=== PATIENT | female | born 1945 | race Caucasian/White ===

== ENCOUNTER 2016-08-07 11:07 | Inpatient (IN) | payer OTHER ==
[2016-08-07 11:23] VITALS: BMI 35.2
[2016-08-07] MEDS ORDERED: morphine CARPU-JECT 2 MG/1 ML DISP.SYRIN IVPUSH ONE ×2 (12:04→14:47)
[2016-08-07] MEDS ORDERED: morphine CARPU-JECT 4 MG/1 ML DISP.SYRIN ONE (12:06)
[2016-08-07 12:32] LABS: BASOPHIL 0.5 % (0-2.0); EOSINOPHIL 2.6 % (0-4.5); MCH 29.8 pg (25.7-33.7); MCHC 33.6 g/dl (32.0-36.0); MEAN CELL VOLUME 88.7 fl (80-96); NEUTROPHILS 73.5 % (42.8-82.8); PLATELET COUNT 350 K/MM3 (134-434); RDW 12.3 % (11.6-15.6); WHITE BLOOD COUNT 9.8 K/mm3 (4.0-10.0)
[2016-08-07 12:34] LABS: URINE APPEARANCE TURBID; URINE BILIRUBIN NEGATIVE (NEGATIVE); URINE COLOR AMBER; URINE GLUCOSE (UA) NEGATIVE (NEGATIVE); URINE KETONE NEGATIVE (NEGATIVE); URINE NITRITE NEGATIVE (NEGATIVE); URINE UROBILINOGEN NEGATIVE E.U./dl (0.2-1.0)
[2016-08-07 12:38] LABS: URINE BLOOD 2+ (NEGATIVE); URINE LEUK ESTERASE 3+ (NEGATIVE); URINE PROTEIN 2+ (NEGATIVE)
[2016-08-07 12:40] LABS: URINE BACTERIA MANY /hpf (NONE SEEN); URINE RBC 119 /hpf (0-3); URINE WBC 1878 /hpf (3-5)
[2016-08-07 13:20] LABS: ALBUMIN 3.5 g/dl (3.4-5.0); ALK PHOS 147 U/L (45-117); AMYLASE 58 U/L (25-115); ANION GAP 9 (8-16); BILIRUBIN,TOTAL 0.6 mg/dL (0.2-1.0); CALCIUM 10.7 mg/dL (8.5-10.1); CO2 27 mmol/L (21-32); CREATININE 0.9 mg/dL (0.55-1.02); GLUCOSE,RANDOM 82 mg/dL (74-106); SGPT/ALT 25 U/L (12-78)
[2016-08-07 13:24] LABS: SGOT/AST 27 U/L (15-37)
--- NOTE | 2016-08-07 13:44 | PDOC ---
History of Present Illness - General Chief Complaint: Pain Stated Complaint: ABD PAIN Time Seen by Provider: 08/07/16 11:39 History Source: Patient, Other (daughter) Exam Limitations: No Limitations - History of Present Illness Initial Comments: 08/07/16 13:24 70-year-old female presents to the emergency room for evaluation of right flank pain associated with dysuria for the past few weeks. Patient states pain has worsened in severity despite being on 2 different antibiotics for UTI. Patient is due for an abdominal CT today but due to the pain she was brought to the ER for further evaluation. Patient denies fever, chills, nausea, abdominal distention, diarrhea, hematuria, or chest pain. Patient states history of cholecystectomy and CVA. Past History - Past Medical History Allergies/Adverse Reactions: Allergies Allergy/AdvReac Type Severity Reaction Status Date / Time aspirin Allergy Verified 08/07/16 14:48 Home Medications: Ambulatory Orders Atorvastatin Ca [Lipitor] 40 mg PO HS 08/07/16 Ciprofloxacin [Cipro (Restricted To Id)] 500 mg PO BID 08/07/16 Citalopram Hydrobromide [Celexa -] 10 mg PO DAILY 08/07/16 Clopidogrel Bisulfate [Plavix -] 75 mg PO DAILY 08/07/16 Famotidine [Pepcid] 40 mg PO TID 08/07/16 Fesoterodine Fumarate [Toviaz] 8 mg PO DAILY 08/07/16 Gabapentin 400 mg PO TID 08/07/16 Glyburide Micronized [Glynase -] 6 mg PO BID 08/07/16 Insulin Glargine,Hum.rec.anlog [Lantus Solostar PEN (NF)] 30 units SQ HS Insulin Lispro [Humalog] 12 unit SQ TID 08/07/16 Irbesartan 150 mg PO DAILY 08/07/16 Irbesartan [Avapro] 150 mg PO DAILY 08/07/16 Montelukast Na [Singulair -] 10 mg PO HS 08/07/16 Pantoprazole Sodium [Protonix -] 20 mg PO DAILY 08/07/16 CVA: Yes (LEft residual weakness) Diabetes: Yes HTN: Yes Hypercholesterolemia: Yes Other medical history: pacemaker - Surgical History Cholecystectomy: Yes - Psycho/Social/Smoking Cessation Hx Suicidal Ideation: No Smoking History: Never smoked Information on smoking cessation initiated: No Hx Alcohol Use: No Drug/Substance Use Hx: No Patient Lives Alone: No Lives with/in: daughter Review of Systems - Review of Systems Able to Perform ROS?: Yes Constitutional: No: Symptoms Reported HEENTM: No: Symptoms Reported Respiratory: No: Symptoms reported Cardiac (ROS): No: Symptoms Reported ABD/GI: Yes: Abdominal cramping. No: Nausea, Poor Appetite, Poor Fluid Intake, Vomiting : Yes: Dysuria, Frequency, Flank Pain Musculoskeletal: No: Symptoms Reported Integumentary: No: Symptoms Reported Neurological: No: Symptoms reported Endocrine: No: Symptoms Reported Hematologic/Lymphatic: No: Symptoms Reported *Physical Exam - Vital Signs Last Vital Signs Temp Pulse Resp BP Pulse Ox 98 F 73 18 157/72 99 08/07/16 11:10 08/07/16 11:10 08/07/16 11:10 08/07/16 11:10 08/07/16 11:10 - Physical Exam General Appearance: Yes: Nourished, Appropriately Dressed. No: Apparent Distress HEENT: positive: EOMI, ABBY. negative: Pale Conjunctivae Neck: positive: Supple Respiratory/Chest: positive: Lungs Clear, Normal Breath Sounds. negative: Respiratory Distress, Accessory Muscle Use Cardiovascular: positive: Regular Rhythm, Regular Rate. negative: Murmur Gastrointestinal/Abdominal: positive: Soft, Tenderness (Flank right , right periumbilal) Musculoskeletal: positive: CVA Tenderness (R) Extremity: positive: Normal Capillary Refill. negative: Pedal Edema Integumentary: positive: Normal Color, Warm, Moist Neurologic: positive: Normal Mood/Affect Heart Score/ECG Review - ECG Intrepretation Rhythm: Regular Rhythm (rate 68 with right bundle branch block.) ED Treatment Course - LABORATORY CBC & Chemistry Diagram: 08/07/16 12:19 08/07/16 12:19 - ADDITIONAL ORDERS Additional order review: Laboratory Results 08/07/16 08/07/16 12:30 12:19 Lactic Acid 1.493 Urine Color Anali Urine Appearance Turbid Urine pH 6.0 Ur Specific Elizabeth 1.010 Urine Protein 2+ H Urine Glucose (UA) Negative Urine Ketones Negative Urine Blood 2+ H Urine Nitrite Negative Urine Bilirubin Negative Urine Urobilinogen Negative Ur Leukocyte Esterase 3+ H Urine RBC 119 Urine WBC 1878 Urine Bacteria Many 08/07/16 12:19 RBC 4.22 MCV 88.7 MCHC 33.6 RDW 12.3 MPV 8.0 Neutrophils % 73.5 Lymphocytes % 16.2 Monocytes % 7.2 Eosinophils % 2.6 Basophils % 0.5 - RADIOLOGY Radiology Studies Ordered: Category Date Time Status SPIRAL- RENAL-STONE CT [CT] Stat CT Scan 08/07/16 13:22 Ordered CHEST X-RAY PORTABLE* [RAD] Stat Radiology 08/07/16 11:45 Completed - Medications Given in the ED: ED Medications Discontinued Medications Generic Name Dose Route Start Last Admin Trade Name Landonq PRN Reason Stop Dose Admin Morphine Sulfate 4 mg 08/07/16 12:04 08/07/16 12:22 Morphine Injection - IVPUSH 08/07/16 12:05 4 mg ONCE ONE Administration Medical Decision Making - Medical Decision Making 08/07/16 13:42 Patient with history of frequent UTI currently on Cipro after failing Macrobid complaining of right flank pain and urinary complaints. Patient with history of CVA diabetes, and hypertension. Patient is followed by Dr. Wick for primary care. patient ordered for labs, urine,analgesics, and will coner imaging once labs are resulted. 08/07/16 14:48 Laboratory Tests 08/07/16 08/07/16 08/07/16 12:19 12:19 12:19 WBC 9.8 Hgb 12.6 Hct 37.4 Plt Count 350 Neutrophils % 73.5 Sodium 139 Potassium 5.0 Chloride 103 Anion Gap 9 BUN 22 H Creatinine 0.9 Random Glucose 82 Lactic Acid Calcium 10.7 H Total Bilirubin 0.6 AST 27 ALT 25 Alkaline Phosphatase 147 H Total Amylase 58 Lipase 108 Urine Protein 2+ H Urine Blood 2+ H Urine Nitrite Negative Ur Leukocyte Esterase 3+ H Urine RBC 119 Urine WBC 1878 08/07/16 12:30 WBC Hgb Hct Plt Count Neutrophils % Sodium Potassium Chloride Anion Gap BUN Creatinine Random Glucose Lactic Acid 1.493 Calcium Total Bilirubin AST ALT Alkaline Phosphatase Total Amylase Lipase Urine Protein Urine Blood Urine Nitrite Ur Leukocyte Esterase Urine RBC Urine WBC CT shows unremarkable liver, spleen, pancreas and adrenal glands. There is no evidence of retroperitoneal lymphadenopathy or abdominal aortic aneurysm. There is a 1.6 x 0.8 cm obstructing calculus proximal in the right renal pelvis. Small nonobstructing calculi bilaterally. There is also small right renal cyst. Patient will be admitted to Dr. Wick. Patient given another dose of IV morphine. Case discussed with Dr. Alvarez and will [facility] to [facility]. He is recommending Dr. Jaycob Sosa for consultation for urology. 08/07/16 15:37 Her daughter at bedside and states patient is followed by Dr. Decker. Consult placed and call placed to Dr. Yoselin Decker 08/07/16 16:[address] Yoselin Decker and states will consult tomorrow. *DC/Admit/Observation/Transfer Diagnosis at time of Disposition: Renal calculus, right, Intractable abdominal pain, Urinary tract obstruction due to kidney stone - Discharge Dispostion Admit: Yes - Referrals
[2016-08-07] MEDS ORDERED: CEFTRIAXONE 1 GM in DEXTROSE 5%-WATER - 50 ML IVPB ONE (14:39)
--- NOTE | 2016-08-07 17:24 | EKG ---
Test Reason : Blood Pressure : / mmHG Vent. Rate : 068 BPM Atrial Rate : 068 BPM P-R Int : 182 ms QRS Dur : 122 ms QT Int : 426 ms P-R-T Axes : 074 -23 -10 degrees QTc Int : 452 ms NORMAL SINUS RHYTHM RIGHT BUNDLE BRANCH BLOCK ABNORMAL ECG NO PREVIOUS ECGS AVAILABLE Confirmed by LUANNE GARCIA MD ([id number]) on 08/07/2016 5:24:08 PM Referred By: Confirmed By:LUANNE GARCIA MD
[2016-08-07] MEDS: INSULIN SLIDING SCALE (NOVOLOG) 1 VIAL SQ SCH ×2 (18:07→22:01)
[2016-08-07] MEDS: SODIUM CHLORIDE 0.45% 1,000 ML IV SCH (20:34)
[2016-08-07] MEDS ORDERED: INSULIN (NOVOLOG) ASPART 100 UNITS/ML 10ML VIAL ONE (21:54)
[2016-08-07] MEDS: ATORVASTATIN CA 40 MG TABLET (FP) PO SCH (21:59)
[2016-08-07] MEDS: morphine CARPU-JECT 2 MG/1 ML DISP.SYRIN IVPUSH PRN (21:59)
[2016-08-07] MEDS: GABAPENTIN 400 MG CAPSULE (FP) PO SCH (21:59)
[2016-08-07] MEDS: MONTELUKAST NA 10 MG TABLET PO SCH (21:59)
[2016-08-08] MEDS ORDERED: INSULIN (NOVOLOG) ASPART 100 UNITS/ML 10ML VIAL ONE ×3 (06:19→21:13)
[2016-08-08] MEDS: INSULIN SLIDING SCALE (NOVOLOG) 1 VIAL SQ SCH ×4 (06:20→21:16)
[2016-08-08] MEDS: GABAPENTIN 400 MG CAPSULE (FP) PO SCH ×3 (06:20→21:16)
[2016-08-08 08:25] LABS: BASOPHIL 0.9 % (0-2.0); EOSINOPHIL 2.8 % (0-4.5); MCHC 33.8 g/dl (32.0-36.0); MEAN CELL VOLUME 88.6 fl (80-96); NEUTROPHILS 60.4 % (42.8-82.8); PLATELET COUNT 301 K/MM3 (134-434); RDW 12.1 % (11.6-15.6); WHITE BLOOD COUNT 8.7 K/mm3 (4.0-10.0)
[2016-08-08 08:40] LABS: ALBUMIN 2.9 g/dl (3.4-5.0); BILIRUBIN,TOTAL 0.5 mg/dL (0.2-1.0); CALCIUM 9.7 mg/dL (8.5-10.1); CREATININE 1.2 mg/dL (0.55-1.02); TOT PROT 6.5 g/dl (6.4-8.2)
[2016-08-08] MEDS ORDERED: PT OWN MED DRAWER 7, Y5N ONE (09:20)
[2016-08-08] MEDS: LOSARTAN POTASSIUM 50 MG TABLET (FP) PO SCH (09:29)
[2016-08-08] MEDS: POLYETHYLENE GLYCOL 3350 119 GM BTL PO SCH (09:30)
[2016-08-08] MEDS: CITALOPRAM HYDROBROMIDE 10 MG TABLET (FP) PO SCH (09:30)
[2016-08-08] MEDS: SODIUM CHLORIDE 0.45% 1,000 ML IV SCH ×2 (09:31→19:30)
--- NOTE | 2016-08-08 09:37 | CON.CARD ---
Consult Consult Specialty:: Cardiology Referred by:: Dr. Caballero Reason for Consultation:: Pre-op cardiac evaluation - History of Present Illness Chief Complaint: Flank pain, renal stone History of Present Illness: 70 yo female with prior h/o CVA 2014, pacemaker ([employer] per patient's report, which was implanted for "slow HR in 20s"), who was admitted with right flank pain/dysuria x several weeks and persisted despite reportedly being treated with several different antibiotics for UTI. Abd CT on 08/07/16 demonstrated 1.6 cm obstructing stone in right renal pelvis. Cardiology was consulted for pre-op cardiac evaluation for possible urologic procedure/surgery. Patient denies exertional chest pain or dyspnea with stairs. Denies edema, palpitations, orthopnea, or syncope. She states that she saw a male science manager in Dr. Wick 's office last year, but she cannot recall his name. - History Source History Provided By: Patient Limitations to Obtaining History: Language Barrier (Bulgarian speaker only) - Past Medical History WEL[employer] ME[employer]IC: Yes: CVA (2014) Cardio/Vascular: Yes: Other ([employer] pacemaker for "slow HR" in [place], last interrogated in May in [place]) - Past Surgical History Past Surgical History: Yes: Cholecystectomy, Permanent Pacemaker ([employer] per patient) - Alcohol/Substance Use Hx Alcohol Use: No - Smoking History Smoking history: Never smoked Have you smoked in the past 12 months: No Home Medications - Allergies Allergies/Adverse Reactions: Allergies Allergy/AdvReac Type Severity Reaction Status Date / Time aspirin Allergy Verified 08/07/16 14:48 - Home Medications Home Medications: Ambulatory Orders Albuterol Sulfate [Proair Respiclick] 90 mcg IH TID PRN 08/07/16 Atorvastatin Ca [Lipitor] 40 mg PO HS 08/07/16 Ciprofloxacin [Cipro (Restricted To Id)] 500 mg PO BID 08/07/16 Citalopram Hydrobromide [Celexa -] 10 mg PO DAILY 08/07/16 Clopidogrel Bisulfate [Plavix -] 75 mg PO DAILY 08/07/16 Famotidine [Pepcid] 40 mg PO BID 08/07/16 Fesoterodine Fumarate [Toviaz] 8 mg PO DAILY 08/07/16 Gabapentin 400 mg PO TID 08/07/16 Glyburide Micronized [Glynase -] 6 mg PO BID 08/07/16 Insulin Glargine,Hum.rec.anlog [Lantus Solostar PEN (NF)] 30 units SQ HS Insulin Lispro [Humalog] 12 unit SQ TID 08/07/16 Irbesartan 150 mg PO DAILY 08/07/16 Irbesartan [Avapro] 150 mg PO DAILY 08/07/16 Montelukast Na [Singulair -] 10 mg PO HS 08/07/16 Family Disease History - Family Disease History Family History: Denies (premature CAD) Review of Systems - Review of Systems Constitutional: reports: No Symptoms Eyes: reports: No Symptoms HENT: reports: No Symptoms Neck: reports: No Symptoms Cardiovascular: denies: Chest Pain, Edema, Palpitations, Shortness of Breath Vital Signs: Vital Signs Temperature 98.4 F 08/08/16 06:00 Pulse Rate 66 08/08/16 06:00 Respiratory Rate 18 08/08/16 06:00 Blood Pressure 108/68 08/08/16 06:00 O2 Sat by Pulse Oximetry (%) 98 08/07/16 21:00 - Other Data Labs, Other Data: CBC, BMP 08/08/16 06:20 08/08/16 06:20 Imaging - Results Chest X-ray: Report Reviewed (08/07/16 CXR: No effusions, infiltrates. Pacemaker.) Assessment/Plan 70 yo female with prior h/o CVA 2014, pacemaker ([employer] per patient's report, which was implanted for "slow HR in 20s"), who was admitted with right flank pain/dysuria x several weeks and persisted despite reportedly being treated with several different antibiotics for UTI. Abd CT on 08/07/16 demonstrated 1.6 cm obstructing stone in right renal pelvis. Cardiology was consulted for pre-op cardiac evaluation for possible urologic procedure/surgery. RECS: Patient does not have any cardiac contraindications to urologic procedure/ surgery (if clinically indicated) and may proceed with acceptable cardiac risk given absence of symptoms to suggest cardiac disease and exercise capacity > 4 METs. Will hold patient's clopidogrel in preparation for possible urologic procedure/ surgery. Patient reports that she saw a science manager in Dr. Wick's office last year, but she cannot recall his name. Will have Dr. Oden fax science manager's last office note to the floor. I was unable to find any records in our [facility] [employer] system. Will follow. Call with questions.
[2016-08-08] MEDS ORDERED: IRBESARTAN 150 MG PO SCH (10:00)
[2016-08-08] MEDS ORDERED: CLOPIDOGREL BISULFATE 75 MG TABLET (FP) PO SCH (10:00)
[2016-08-08] MEDS ORDERED: PATIENT'S OWN MEDICATION (NON-FORMULARY) (Irbesartan [Irbesartan] 150 MG) PO SCH (10:00)
[2016-08-08] MEDS ORDERED: PATIENT'S OWN MEDICATION (NON-FORMULARY) (Fesoterodine Fumarate [Toviaz] 8 MG) PO SCH (10:00)
--- NOTE | 2016-08-08 10:01 | HP ---
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 pacemaker for "slow HR" in [place], last interrogated in May in [place]) - Past Surgical History Past Surgical History: Yes: Cholecystectomy, Permanent Pacemaker ([employer] per patient) - Smoking History Smoking history: Never smoked Have you smoked in the past 12 months: No - Alcohol/Substance Use Hx Alcohol Use: No Home Medications - Allergies Allergies/Adverse Reactions: Allergies Allergy/AdvReac Type Severity Reaction Status Date / Time aspirin Allergy Verified 08/07/16 14:48 - Home Medications Home Medications: Ambulatory Orders Albuterol Sulfate [Proair Respiclick] 90 mcg IH TID PRN 08/07/16 Atorvastatin Ca [Lipitor] 40 mg PO HS 08/07/16 Ciprofloxacin [Cipro (Restricted To Id)] 500 mg PO BID 08/07/16 Citalopram Hydrobromide [Celexa -] 10 mg PO DAILY 08/07/16 Clopidogrel Bisulfate [Plavix -] 75 mg PO DAILY 08/07/16 Famotidine [Pepcid] 40 mg PO BID 08/07/16 Fesoterodine Fumarate [Toviaz] 8 mg PO DAILY 08/07/16 Gabapentin 400 mg PO TID 08/07/16 Glyburide Micronized [Glynase -] 6 mg PO BID 08/07/16 Insulin Glargine,Hum.rec.anlog [Lantus Solostar PEN (NF)] 30 units SQ HS Insulin Lispro [Humalog] 12 unit SQ TID 08/07/16 Irbesartan 150 mg PO DAILY 08/07/16 Irbesartan [Avapro] 150 mg PO DAILY 08/07/16 Montelukast Na [Singulair -] 10 mg PO HS 08/07/16 Review of Systems - Review of Systems Constitutional: denies: Chills, Fever Cardiovascular: denies: Chest Pain Respiratory: denies: SOB Gastrointestinal: reports: Abdominal Pain Physical Examination Vital Signs: Vital Signs Temperature 98.4 F 08/08/16 06:00 Pulse Rate 66 08/08/16 06:00 Respiratory Rate 18 08/08/16 06:00 Blood Pressure 108/68 08/08/16 06:00 O2 Sat by Pulse Oximetry (%) 98 08/07/16 21:00 Findings/Remarks: FEELS BETTER DOES NOT WANT HIGHER PAIN Rx Constitutional: Yes: Calm Cardiovascular: Yes: Regular Rate and Rhythm, S1, S2 Respiratory: Yes: CTA Bilaterally Gastrointestinal: Yes: Normal Bowel Sounds, Soft Musculoskeletal: Yes: Back Pain Edema: No Labs: CBC, BMP 08/08/16 06:20 08/08/16 06:20 Imaging - Results Chest X-ray: Report Reviewed Cat Scan: Report Reviewed Problem List - Problems (1) Renal calculus, right Code(s): N20.0 - CALCULUS OF KIDNEY (2) Urinary tract obstruction due to kidney stone Code(s): N20.0 - CALCULUS OF KIDNEY N13.8 - OTHER OBSTRUCTIVE AND REFLUX UROPATHY (3) H/O: CVA (cerebrovascular accident) Code(s): Z86.73 - PRSNL HX OF TIA (TIA), AND CEREB INFRC W/O RESID DEFICITS (4) Diabetes Code(s): E11.9 - TYPE 2 DIABETES MELLITUS WITHOUT COMPLICATIONS (5) HTN (hypertension) Code(s): I10 - ESSENTIAL (PRIMARY) HYPERTENSION (6) Pacemaker Code(s): Z95.0 - PRESENCE OF CARDIAC PACEMAKER (7) KEESHA (acute kidney injury) Code(s): N17.9 - ACUTE KIDNEY FAILURE, UNSPECIFIED (8) UTI (urinary tract infection) Code(s): N39.0 - URINARY TRACT INFECTION, SITE NOT SPECIFIED Assessment/Plan 70-year-old female presents to the emergency room for evaluation of right flank pain associated with dysuria for the past few weeks. Patient states pain has worsened in severity despite being on 2 different antibiotics for UTI. Patient is due for an abdominal CT today but due to the pain she was brought to the ER for further evaluation. Patient denies fever, chills, nausea, abdominal distention, diarrhea, hematuria, or chest pain. Patient states history of cholecystectomy and CVA. (1) Renal calculus, right Code(s): N20.0 - CALCULUS OF KIDNEY URO ON CASE CARDIO CONSULTED FOR PRE-OP CLEARANCE NO FEVER Cr 1.2 (2) Urinary tract obstruction due to kidney stone Code(s): N20.0 - CALCULUS OF KIDNEY N13.8 - OTHER OBSTRUCTIVE AND REFLUX UROPATHY OUTPT ABx FAILED IV ABx ID ON CASE (3) H/O: CVA (cerebrovascular accident) Code(s): Z86.73 - PRSNL HX OF TIA (TIA), AND CEREB INFRC W/O RESID DEFICITS (4) Diabetes Code(s): E11.9 - TYPE 2 DIABETES MELLITUS WITHOUT COMPLICATIONS BGM ISS (5) HTN (hypertension) Code(s): I10 - ESSENTIAL (PRIMARY) HYPERTENSION ACCEPTABLE CONTROL CARDIO ON CASE FOR PRE-OP CLEARANCE (6) Pacemaker Code(s): Z95.0 - PRESENCE OF CARDIAC PACEMAKER (7) KEESHA (acute kidney injury) Code(s): N17.9 - ACUTE KIDNEY FAILURE, UNSPECIFIED Cr WNL -> 1.2 IVF MONITOR (8) UTI (urinary tract infection) Code(s): N39.0 - URINARY TRACT INFECTION, SITE NOT SPECIFIED PASTOR SONI
[2016-08-08] MEDS: morphine CARPU-JECT 2 MG/1 ML DISP.SYRIN IVPUSH PRN ×2 (10:18→21:19)
[2016-08-08] MEDS ORDERED: CEFTRIAXONE 50 ML IVPB SCH (10:30)
[2016-08-08] MEDS: TOLTERODINE TARTRATE LA 4 MG CAP.SR.24H (FP) PO SCH (10:33)
--- NOTE | 2016-08-08 16:00 | PN ---
Progress Note (short form) - Note Progress Note: ID Consult dictated Obstructing R nephrolith UTI/ Possible sepsis secondary to UTI S/P CVA Obtain BC Empiric cefepime evaluation
--- NOTE | 2016-08-08 16:33 | CONS ---
DATE OF CONSULTATION: DATE OF DICTATION: 08/08/2016 The patient is a 70-year-old female with a history of stroke and cardiac disease evaluated for possible sepsis secondary to UTI. The patient was admitted to the hospital on August 07, 2016, with complaints of right flank pain and dysuria. Symptoms had been present, according to the chart, for several weeks; however, worsened prior to admission. Also, according to the notes, she had been on 2 different oral antibiotics prior to admission. I was able to check her medication list and see she was recently on nitrofurantoin. In the emergency room, a CT scan of the abdomen and pelvis was performed and showed an obstructing right nephrolith. Urology was consulted. She has been afebrile with a normal white blood cell count. Urinalysis showed many white cells. She was empirically treated with ceftriaxone. At the present time, she complains of right flank pain and dysuria. She denies any fevers or chills, nausea or vomiting or diarrhea. PAST MEDICAL HISTORY: Positive for stroke with residual left hemiparesis. PAST SURGICAL HISTORY: Status post cholecystectomy and permanent pacemaker. ALLERGIES: ASPIRIN. MEDICATIONS: Protonix, Lipitor, Celexa, Plavix, Pepcid, Neurontin, Humalog, Avapro, Singulair. SOCIAL HISTORY: She lives at home, nonsmoker, nondrinker. SYSTEMS REVIEW: Neurologic: No loss of consciousness or seizure activity. Positive left hemiparesis. Cardiac: Status post permanent pacemaker. Gastrointestinal: Negative vomiting or diarrhea. Genitourinary: As per HPI. LABORATORY DATA: White count 8.7, hematocrit 30.8, platelet count 301. BUN 29, creatinine 1.2. Urinalysis with 1878 white cells. 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 PHYSICAL EXAMINATION: General: She is awake, she is in moderate distress secondary to right flank pain. Vital Signs: Temperature 98.2, blood pressure 109/60, pulse 69 and regular, respirations 20 per minute. HEENT: Sclerae anicteric. Heart Sounds: S1, S2. Lungs: Clear. Abdomen: Soft. There is right flank tenderness elicited and right paraumbilical tenderness elicited. Extremities: Positive for edema. Neurologic: Right hemiparesis. IMPRESSION: 1. Obstructing right nephrolithiasis. 2. Urinary tract infection/possible sepsis secondary to urinary tract infection. 3. Status post stroke. Obtain blood cultures, empiric antibiotic coverage with cefepime 1 g IV piggyback every 8 hours pending cultures, Urology evaluation. Should patient have fever or leukocytosis, will broaden antimicrobial coverage. Patient had recently been on nitrofurantoin, raising the suspicion that she may have had a resistant urinary isolate. Further recommendations pending cultures. Will follow. Thank you for the kind referral. CARTER MERINO M.D. [id number]
[2016-08-08] MEDS: CEFEPIME 1 GM/100 ML BAG PRE-DOCKED IVPB SCH (17:41)
[2016-08-08] MEDS ORDERED: CEFEPIME HCL 2 GM VIAL (RESTRICTED TO ID) IVPB SCH (18:00)
[2016-08-08] MEDS ORDERED: TAMSULOSIN HCL 0.4 MG CAP.ER.24H (FP) PO ONE (21:16)
[2016-08-08] MEDS: MONTELUKAST NA 10 MG TABLET PO SCH (21:16)
[2016-08-08] MEDS: ATORVASTATIN CA 40 MG TABLET (FP) PO SCH (21:16)
--- NOTE | 2016-08-08 22:41 | CONS ---
DATE OF CONSULTATION: DATE OF DICTATION: 08/08/2016 HISTORY OF PRESENT ILLNESS: Patient is a 70-year-old female admitted early this morning via the emergency room with acute onset of right flank pain, which is acute in onset, commenced in the right flank, and radiated to the right lower quadrant. The patient also has some dysuria as well as frequency. The patient states that she has been having dysuria, frequency for several days, and has been given antibiotics at the office. She was treated for urinary tract infection. The patient denies any chest pain. She denies any chills, fever, nausea, vomiting, or diarrhea. She has undergone a cholecystectomy and has had a CVA in the past. The patient is allergic to aspirin. She is on multiple medications including Lipitor, Cipro, Celexa, Plavix, Pepcid, Toviaz, Neurontin, Glynase, and insulin. Patient also takes Avapro, Singulair, and Protonix. Patient is also a diabetic and a dyslipidemic. She has undergone pacemaker insertion in the past. She still has left sided residual weakness. She denies any ethanolism or tobacco. PHYSICAL EXAMINATION: General: A female in no apparent distress. Abdomen: Soft. There was some suprapubic tenderness. There is also right flank tenderness. No rebound or guarding was elicited. Extremities: Show full range of motion with no cyanosis, clubbing, or edema. Vital signs: The temperature in the emergency room was 98, blood pressure 152/72, pulse oximetry 92, respirations 18 and regular. LABORATORY: The patient's CBC revealed a white count of 9.8 with a hemoglobin, hematocrit of 12.6/37.4. The platelet count is 350. BUN and creatinine were 22/0.9. The random glucose was 82. An EKG revealed irregular rhythm with a right bundle branch block. Her urine is positive for blood, negative for nitrates. IMAGING: Patient underwent a CT of her abdomen in the emergency room and this revealed a 1.6 cm obstructing stone in the proximal right renal pelvis. There were small nonobstructing stones in both kidneys. The liver, spleen, pancreas, and adrenal glands were unremarkable. There was a small right renal cyst. The patient is status post a left hip replacement with artifact degrading the evaluation of the pelvis. The uterus was not well defined. The urinary bladder was unremarkable. Patient had repeat blood workup and this revealed a white count of 8.7 with a hemoglobin and hematocrit 10.4 over 30.8. IMPRESSION: At present, is right renal colic, hematuria, and right hydronephrosis secondary to a right ureteral calculus. Will recommend increase in p.o. fluids, straining her urine, commence Flomax 0.4 mg daily. Will repeat renal ultrasound in a.m. If ultrasound reveals continuation of the hydronephrosis, will recommend a cystoscopy with laser lithotripsy and placement of a Double J stent. Brittney [id number]
[2016-08-09] MEDS: CEFEPIME 1 GM/100 ML BAG PRE-DOCKED IVPB SCH ×2 (02:46→10:49)
[2016-08-09] MEDS: SODIUM CHLORIDE 0.45% 1,000 ML IV SCH ×3 (02:48→19:30)
[2016-08-09] MEDS ORDERED: INSULIN (NOVOLOG) ASPART 100 UNITS/ML 10ML VIAL ONE ×4 (06:26→21:22)
[2016-08-09] MEDS: INSULIN SLIDING SCALE (NOVOLOG) 1 VIAL SQ SCH ×4 (06:27→21:24)
[2016-08-09] MEDS: GABAPENTIN 400 MG CAPSULE (FP) PO SCH ×3 (06:27→21:24)
[2016-08-09 07:26] LABS: BASOPHIL 0.8 % (0-2.0); EOSINOPHIL 4.3 % (0-4.5); MCH 29.9 pg (25.7-33.7); MCHC 33.9 g/dl (32.0-36.0); MEAN CELL VOLUME 88.2 fl (80-96); MEAN PLT VOLUME 7.7 fl (7.5-11.1); NEUTROPHILS 59.6 % (42.8-82.8); PLATELET COUNT 272 K/MM3 (134-434); RDW 12.3 % (11.6-15.6); WHITE BLOOD COUNT 7.5 K/mm3 (4.0-10.0)
[2016-08-09 08:03] LABS: ALBUMIN 2.8 g/dl (3.4-5.0); CALCIUM 9.7 mg/dL (8.5-10.1)
[2016-08-09 08:05] LABS: BILIRUBIN,TOTAL 0.4 mg/dL (0.2-1.0); TOT PROT 6.3 g/dl (6.4-8.2)
[2016-08-09] MEDS ORDERED: PT OWN MED DRAWER 7, Y5N ONE (08:55)
[2016-08-09] MEDS: TOLTERODINE TARTRATE LA 4 MG CAP.SR.24H (FP) PO SCH (09:27)
[2016-08-09] MEDS: LOSARTAN POTASSIUM 50 MG TABLET (FP) PO SCH (09:27)
[2016-08-09] MEDS: CITALOPRAM HYDROBROMIDE 10 MG TABLET (FP) PO SCH (09:56)
[2016-08-09] MEDS: POLYETHYLENE GLYCOL 3350 119 GM BTL PO SCH (10:24)
--- NOTE | 2016-08-09 10:27 | PN ---
Addendum entered and electronically signed by Edin Zapata MD 08/09/16 14:43: I was informed by Dr. Wick that she was not seen by pony trimmer in his office. Regardless, patient does not have any cardiac contraindications and may proceed with her urologic procedure without further cardiac work-up. Patient will need outpatient cardiac follow-up and may have her pacemaker checked at that time. Patient is clearly not pacemaker dependent at this time. Will see prn. Call with questions. Original Note: Progress Note, Physician History of Present Illness: Denies chest pain or dyspnea. - Current Medication List Current Medications: Active Medications Atorvastatin Calcium (Lipitor -) 40 mg PO HS [facility] Last Admin: 08/08/16 21:16 Dose: 40 mg Cefepime HCl (Maxipime 1gm Ivpb Pre-Docked) 1 gm IVPB Q8H-IV [facility] Last Admin: 08/09/16 02:46 Dose: 1 gm Citalopram Hydrobromide (Celexa -) 10 mg PO DAILY [facility] Last Admin: 08/09/16 09:56 Dose: 10 mg Gabapentin (Neurontin -) 400 mg PO TID [facility] Last Admin: 08/09/16 06:27 Dose: 400 mg Sodium Chloride (1/2 Normal Saline) 1,000 mls @ 75 mls/hr IV ASDIR [facility] Last Admin: 08/09/16 02:48 Dose: 75 mls/hr Insulin Aspart (Novolog Vial Sliding Scale -) 1 vial SQ ACHS [facility] PRN Reason: Protocol Last Admin: 08/09/16 06:27 Dose: 2 units Losartan Potassium (Cozaar -) 50 mg PO DAILY [facility] Last Admin: 08/09/16 09:27 Dose: 50 mg Montelukast Sodium (Singulair -) 10 mg PO HS [facility] Last Admin: 08/08/16 21:16 Dose: 10 mg Morphine Sulfate (Morphine Injection -) 1 mg IVPUSH Q4H PRN PRN Reason: PAIN Last Admin: 08/08/16 21:19 Dose: 1 mg Polyethylene Glycol (Miralax (For Daily Use) -) 17 gm PO DAILY [facility] Last Admin: 08/09/16 10:24 Dose: 17 gm Tolterodine Tartrate (Detrol La -) 4 mg PO DAILY [facility] Last Admin: 08/09/16 09:27 Dose: 4 mg - Objective Vital Signs: Vital Signs Temperature 98.3 F 08/09/16 08:57 Pulse Rate 65 08/09/16 08:57 Respiratory Rate 18 08/09/16 08:57 Blood Pressure 128/52 08/09/16 08:57 O2 Sat by Pulse Oximetry (%) 98 08/08/16 21:00 Constitutional: Yes: No Distress, Obese Eyes: Yes: Conjunctiva Clear, EOM Intact HENT: Yes: Atraumatic, Normocephalic Cardiovascular: Yes: Regular Rate and Rhythm Respiratory: Yes: CTA Bilaterally Gastrointestinal: Yes: Normal Bowel Sounds Edema: No Neurological: Yes: Alert, Oriented, Cran Nerves II-XII Intact Labs: CBC, BMP 08/09/16 06:30 08/09/16 06:30 Assessment/Plan 70 yo female with prior h/o CVA 2014, pacemaker ([employer] per patient's report, which was implanted for "slow HR in 20s"), who was admitted with right flank pain/dysuria x several weeks and persisted despite reportedly being treated with several different antibiotics for UTI. Abd CT on 08/07/16 demonstrated 1.6 cm obstructing stone in right renal pelvis. Cardiology was consulted for pre-op cardiac evaluation for possible urologic procedure/surgery. RECS: Patient does not have any cardiac contraindications to urologic procedure/ surgery (if clinically indicated) and may proceed with acceptable cardiac risk given absence of symptoms to suggest cardiac disease and exercise capacity > 4 METs. Will hold patient's clopidogrel in preparation for possible urologic procedure/ surgery. Patient reports that she saw a pony trimmer in Dr. Wick's office last year, but she cannot recall his name. Spoke with Dr. Wick today who will fax pony trimmer's last office note to the floor. I was unable to find any records in our [facility] system. Will follow. Call with questions.
--- NOTE | 2016-08-09 13:01 | PN ---
Progress Note (short form) - Note Progress Note: PT WITH HYDRO AND COLICK PT FORT OR IN AM NOTHING AVAILABLE TODAY PLEASE RESUME DIET NPO P MN FOR OR AT 9AM
[2016-08-09] MEDS: morphine CARPU-JECT 2 MG/1 ML DISP.SYRIN IVPUSH PRN (13:18)
--- NOTE | 2016-08-09 14:32 | PN ---
Progress Note (short form) - Note Progress Note: Pat scheduled for Cystoscopy and right lithotripsy, 08/10/16. Seen and cleared by surveillance observer. Pat has a pacemaker, [employer] since 2014, last time checked 2015. Awaiting a copy from surveillance observer's office from her last visit.also last dose of plavix yesterday, 08/08/16.
--- NOTE | 2016-08-09 14:42 | PN ---
Progress Note (short form) - Note Progress Note: no complaints still some suprapubic discomfort radiating to the flanks Vital Signs Period Temp Pulse Resp BP Sys/London Pulse Ox Last 24 Hr 98.0 F-98.8 F 65-70 16-20 106-128/52-63 94-98 cor-rrr lungs clear abd some suprapubic discomfort ext no edema CBC, BMP 08/09/16 06:30 08/09/16 06:30 Microbiology 08/07/16 12:19 Urine - Urine Weller Urine Culture - Final Klebsiella Pneumoniae a/p nephrolithiasis/hydronephrosis for cysto and stent in am based on urine culture will de-escalate to ancef
--- NOTE | 2016-08-09 16:14 | PN ---
Progress Note, Physician Chief Complaint: CALM - Current Medication List Current Medications: Active Medications Atorvastatin Calcium (Lipitor -) 40 mg PO HS [facility] Last Admin: 08/08/16 21:16 Dose: 40 mg Citalopram Hydrobromide (Celexa -) 10 mg PO DAILY [facility] Last Admin: 08/09/16 09:56 Dose: 10 mg Gabapentin (Neurontin -) 400 mg PO TID [facility] Last Admin: 08/09/16 13:19 Dose: 400 mg Sodium Chloride (1/2 Normal Saline) 1,000 mls @ 75 mls/hr IV ASDIR [facility] Last Admin: 08/09/16 15:43 Dose: 75 mls/hr Cefazolin Sodium (Ancef 1gm Ivpb (Pre-Docked)) 50 mls @ 100 mls/hr IVPB Q8H-IV [facility] Insulin Aspart (Novolog Vial Sliding Scale -) 1 vial SQ ACHS [facility] PRN Reason: Protocol Last Admin: 08/09/16 11:31 Dose: 4 units Losartan Potassium (Cozaar -) 50 mg PO DAILY [facility] Last Admin: 08/09/16 09:27 Dose: 50 mg Montelukast Sodium (Singulair -) 10 mg PO HS [facility] Last Admin: 08/08/16 21:16 Dose: 10 mg Morphine Sulfate (Morphine Injection -) 1 mg IVPUSH Q4H PRN PRN Reason: PAIN Last Admin: 08/09/16 13:18 Dose: 1 mg Polyethylene Glycol (Miralax (For Daily Use) -) 17 gm PO DAILY [facility] Last Admin: 08/09/16 10:24 Dose: 17 gm Tolterodine Tartrate (Detrol La -) 4 mg PO DAILY [facility] Last Admin: 08/09/16 09:27 Dose: 4 mg - Objective Vital Signs: Vital Signs Temperature 98.1 F 08/09/16 14:02 Pulse Rate 69 08/09/16 14:02 Respiratory Rate 18 08/09/16 08:57 Blood Pressure 106/63 08/09/16 14:02 O2 Sat by Pulse Oximetry (%) 94 L 08/09/16 09:00 Constitutional: Yes: Calm Cardiovascular: Yes: Regular Rate and Rhythm, S1, S2 Respiratory: Yes: CTA Bilaterally Gastrointestinal: Yes: Normal Bowel Sounds, Soft Edema: No Labs: CBC, BMP 08/09/16 06:30 08/09/16 06:30 Problem List - Problems (1) Renal calculus, right Code(s): N20.0 - CALCULUS OF KIDNEY (2) Urinary tract obstruction due to kidney stone Code(s): N20.0 - CALCULUS OF KIDNEY N13.8 - OTHER OBSTRUCTIVE AND REFLUX UROPATHY (3) H/O: CVA (cerebrovascular accident) Code(s): Z86.73 - PRSNL HX OF TIA (TIA), AND CEREB INFRC W/O RESID DEFICITS (4) Diabetes Code(s): E11.9 - TYPE 2 DIABETES MELLITUS WITHOUT COMPLICATIONS (5) HTN (hypertension) Code(s): I10 - ESSENTIAL (PRIMARY) HYPERTENSION (6) Pacemaker Code(s): Z95.0 - PRESENCE OF CARDIAC PACEMAKER (7) KEESHA (acute kidney injury) Code(s): N17.9 - ACUTE KIDNEY FAILURE, UNSPECIFIED (8) UTI (urinary tract infection) Code(s): N39.0 - URINARY TRACT INFECTION, SITE NOT SPECIFIED Assessment/Plan 70-year-old female presents to the emergency room for evaluation of right flank pain associated with dysuria for the past few weeks. Patient states pain has worsened in severity despite being on 2 different antibiotics for UTI. Patient is due for an abdominal CT today but due to the pain she was brought to the ER for further evaluation. Patient denies fever, chills, nausea, abdominal distention, diarrhea, hematuria, or chest pain. Patient states history of cholecystectomy and CVA. (1) Renal calculus, right Code(s): N20.0 - CALCULUS OF KIDNEY URO ON CASE CARDIO CONSULTED FOR PRE-OP CLEARANCE NO FEVER Cr WNL FOR OR 2 (2) Urinary tract obstruction due to kidney stone Code(s): N20.0 - CALCULUS OF KIDNEY N13.8 - OTHER OBSTRUCTIVE AND REFLUX UROPATHY OUTPT ABx FAILED IV ABx ID ON CASE (3) H/O: CVA (cerebrovascular accident) Code(s): Z86.73 - PRSNL HX OF TIA (TIA), AND CEREB INFRC W/O RESID DEFICITS (4) Diabetes Code(s): E11.9 - TYPE 2 DIABETES MELLITUS WITHOUT COMPLICATIONS BGM ISS (5) HTN (hypertension) Code(s): I10 - ESSENTIAL (PRIMARY) HYPERTENSION ACCEPTABLE CONTROL CARDIO ON CASE FOR PRE-OP CLEARANCE -> NOTED (6) Pacemaker Code(s): Z95.0 - PRESENCE OF CARDIAC PACEMAKER (7) KEESHA (acute kidney injury) Code(s): N17.9 - ACUTE KIDNEY FAILURE, UNSPECIFIED RESOLVED IVF MONITOR (8) UTI (urinary tract infection) Code(s): N39.0 - URINARY TRACT INFECTION, SITE NOT SPECIFIED UCx +vika IV ABx ID ON CASE ADMINISTRATIVE UNDERWRITER FM
[2016-08-09] MEDS ORDERED: CEFAZOLIN (PRE-DOCKED) 50 ML IVPB SCH (18:00)
[2016-08-09] MEDS: MONTELUKAST NA 10 MG TABLET PO SCH (21:24)
[2016-08-09] MEDS: ATORVASTATIN CA 40 MG TABLET (FP) PO SCH (21:24)
[2016-08-10] MEDS: morphine CARPU-JECT 2 MG/1 ML DISP.SYRIN IVPUSH PRN (01:03)
[2016-08-10] MEDS: GABAPENTIN 400 MG CAPSULE (FP) PO SCH ×3 (05:01→21:19)
[2016-08-10] MEDS: SODIUM CHLORIDE 0.45% 1,000 ML IV SCH ×2 (05:54→12:01)
[2016-08-10] MEDS: INSULIN SLIDING SCALE (NOVOLOG) 1 VIAL SQ SCH ×4 (06:08→21:20)
[2016-08-10 06:13] LABS: BASOPHIL 1.1 % (0-2.0); EOSINOPHIL 4.3 % (0-4.5); MCH 29.9 pg (25.7-33.7); MCHC 34.5 g/dl (32.0-36.0); MEAN CELL VOLUME 86.8 fl (80-96); MEAN PLT VOLUME 7.8 fl (7.5-11.1); NEUTROPHILS 60.4 % (42.8-82.8); PLATELET COUNT 324 K/MM3 (134-434); WHITE BLOOD COUNT 8.9 K/mm3 (4.0-10.0)
[2016-08-10 06:41] LABS: ALBUMIN 2.9 g/dl (3.4-5.0); ALK PHOS 117 U/L (45-117); ANION GAP 9 (8-16); BILIRUBIN,TOTAL 0.3 mg/dL (0.2-1.0); CALCIUM 9.7 mg/dL (8.5-10.1); CO2 25 mmol/L (21-32); CREATININE 0.9 mg/dL (0.55-1.02); GLUCOSE,RANDOM 206 mg/dL (74-106); SGOT/AST 10 U/L (15-37); SGPT/ALT 17 U/L (12-78); TOT PROT 6.4 g/dl (6.4-8.2)
[2016-08-10] MEDS: LOSARTAN POTASSIUM 50 MG TABLET (FP) PO SCH ×2 (08:23→10:00)
[2016-08-10] MEDS ORDERED: PROPOFOL 20 ML ONE ×2 (09:04)
[2016-08-10] MEDS ORDERED: PT OWN MED DRAWER 7, Y5N ONE ×3 (09:07→17:30)
--- NOTE | 2016-08-10 09:45 | OP ---
Operative Note - Note: Operative Date: 08/10/16 Pre-Operative Diagnosis: Right Hydronephrosis Operation: Cysto, Retro And stent placement Rt. Findings: Large Calculus radiolucent rt. renal pelvis with pyohydronephrosis Post-Operative Diagnosis: Same as Pre-op Surgeon: Mahesh Valdez Anesthesia: General Drains & Tubes with Location: 24 F 6mm stent
[2016-08-10] MEDS: POLYETHYLENE GLYCOL 3350 119 GM BTL PO SCH (10:00)
[2016-08-10] MEDS: TOLTERODINE TARTRATE LA 4 MG CAP.SR.24H (FP) PO SCH ×2 (10:00→13:40)
[2016-08-10] MEDS: CITALOPRAM HYDROBROMIDE 10 MG TABLET (FP) PO SCH ×2 (10:00→13:40)
[2016-08-10] MEDS ORDERED: LACTATED RINGERS SOLUTION 1,000 ML IV SCH (10:00)
[2016-08-10] MEDS ORDERED: morphine CARPU-JECT 2 MG/1 ML DISP.SYRIN IVPUSH PRN (10:05)
[2016-08-10] MEDS ORDERED: ceFAZolin SODIUM 1 GM VIAL ONE (10:15)
[2016-08-10] MEDS ORDERED: INSULIN (NOVOLOG) ASPART 100 UNITS/ML 10ML VIAL ONE ×3 (11:59→21:17)
[2016-08-10 13:54] LABS: INR 1.11 (0.82-1.09); PROTHROMBIN TIME (PATIENT) 12.2 SEC (9.98-11.88)
--- NOTE | 2016-08-10 14:53 | PN ---
Progress Note (short form) - Note Progress Note: no complaints s/p cysto and stent today Vital Signs Period Temp Pulse Resp BP Sys/London Pulse Ox Last 24 Hr 97.9 F-99.0 F 62-70 16-20 116-155/54-70 96-100 cor-rrr lungs decreased bs at bases abd soft,nt ext no edema CBC, BMP 08/10/16 05:40 08/10/16 05:40 Microbiology 08/08/16 15:45 Blood - Peripheral Venous Blood Culture - Preliminary NO GROWTH OBTAINED AFTER 24 HOURS, INCUBATION TO CONTINUE FOR 4 DAYS. 08/08/16 15:45 Blood - Peripheral Venous Blood Culture - Preliminary NO GROWTH OBTAINED AFTER 24 HOURS, INCUBATION TO CONTINUE FOR 4 DAYS. 08/07/16 12:19 Urine - Urine Weller Urine Culture - Final Klebsiella Pneumoniae a/p nephrolithiasis/hydronephrosis s/p cysto and stent can change to po keflex in am 500 bid for 7 days
--- NOTE | 2016-08-10 15:49 | OP ---
DATE OF OPERATION: 08/10/2016 SURGEON: Mahesh Valdez MD ANESTHESIA: General. PREOPERATIVE DIAGNOSIS: Right renal colic, right hydronephrosis. POSTOPERATIVE DIAGNOSIS: Right renal colic, right hydronephrosis, plus large right renal pelvis stone with pyohydronephrosis. FINDINGS: Urethra normal. Bladder shows marked condition, probably because of the Weller catheter. Right retrograde showed massive hydronephrosis with a large radiolucent stone, maybe up to 2 cm, in the right renal pelvis. Marked pyohydronephrosis is noted. Once a stent was placed, purulent discharge was seen coming out of the right ureteral orifice. DESCRIPTION OF PROCEDURE: Patient in lithotomy position, underwent anesthesia, was prepped and draped in the usual manner. Using 22 scope, cystoscopy performed, and the findings were noted above. Then, a guidewire was placed and a Nexus catheter was used. Right retrograde performed with contrast material, x-rays taken. Findings were as confirmed. The calculus is about 1.5 to 2 cm, radiolucent in nature. Marked pyohydronephrosis noted. A 24/6-mm [place] stent was placed in position. X-rays were taken to confirm. Patient tolerated the procedure well and left the operating room in satisfactory condition. Brittney MORRIS/[id number]
--- NOTE | 2016-08-10 16:03 | PN ---
Progress Note, Physician Chief Complaint: AWAKE ALERT S/P LITHOTRPSY FEELS GOOD , FAMILY BEDSIDE - Current Medication List Current Medications: Active Medications Atorvastatin Calcium (Lipitor -) 40 mg PO HS [facility] Cefazolin Sodium (Ancef 1gm Ivpb (Pre-Docked)) 1 gm IVPB Q8H-IV [facility] Last Admin: 08/10/16 10:22 Dose: 1 gm Citalopram Hydrobromide (Celexa -) 10 mg PO DAILY [facility] Last Admin: 08/10/16 13:40 Dose: 10 mg Fentanyl (Sublimaze Injection -) 25 mcg IVPUSH [id number] PRN PRN Reason: PAIN Stop: 08/13/16 09:52 Gabapentin (Neurontin -) 400 mg PO TID [facility] Last Admin: 08/10/16 13:40 Dose: 400 mg Lactated Ringer's (Lactated Ringers Solution) 1,000 mls @ 75 mls/hr IV ASDIR [facility] Sodium Chloride (1/2 Normal Saline) 1,000 mls @ 75 mls/hr IV ASDIR [facility] Last Admin: 08/10/16 12:01 Dose: 75 mls/hr Insulin Aspart (Novolog Vial Sliding Scale -) 1 vial SQ ACHS DANIEL PRN Reason: Protocol Last Admin: 08/10/16 12:01 Dose: 4 units Losartan Potassium (Cozaar -) 50 mg PO DAILY [facility] Montelukast Sodium (Singulair -) 10 mg PO HS [facility] Morphine Sulfate (Morphine Injection -) 1 mg IVPUSH Q4H PRN PRN Reason: PAIN Polyethylene Glycol (Miralax (For Daily Use) -) 17 gm PO DAILY [facility] Tolterodine Tartrate (Detrol La -) 4 mg PO DAILY [facility] Last Admin: 08/10/16 13:40 Dose: 4 mg - Objective Vital Signs: Vital Signs Temperature 98.1 F 08/10/16 14:21 Pulse Rate 69 08/10/16 14:21 Respiratory Rate 18 08/10/16 11:30 Blood Pressure 138/61 08/10/16 14:21 O2 Sat by Pulse Oximetry (%) 100 08/10/16 11:30 Constitutional: Yes: Mild Distress Eyes: Yes: WNL HENT: Yes: WNL Neck: Yes: WNL Cardiovascular: Yes: WNL Respiratory: Yes: WNL Gastrointestinal: Yes: WNL Genitourinary: Yes: Other Musculoskeletal: Yes: Muscle Weakness Extremities: Yes: External Rotation (LEFT ARM/HAND) Edema: Yes Edema: LUE: Trace, RUE: Trace, LLE: Trace, RLE: Trace Peripheral Pulses WNL: Yes Integumentary: Yes: Other Wound/Incision: Yes: Clean/Dry Neurological: Yes: Pre-Existing Deficit, Weakness ...Motor Strength: LUE, LLE Psychiatric: Yes: WNL Labs: CBC, BMP 08/10/16 05:40 08/10/16 05:40 INR, PTT INR 1.11 (0.82-1.09) 08/10/16 05:40 Problem List - Problems (1) Diabetes Code(s): E11.9 - TYPE 2 DIABETES MELLITUS WITHOUT COMPLICATIONS (2) H/O: CVA (cerebrovascular accident) Code(s): Z86.73 - PRSNL HX OF TIA (TIA), AND CEREB INFRC W/O RESID DEFICITS (3) HTN (hypertension) Code(s): I10 - ESSENTIAL (PRIMARY) HYPERTENSION (4) Pacemaker Code(s): Z95.0 - PRESENCE OF CARDIAC PACEMAKER (5) Renal calculus, right Code(s): N20.0 - CALCULUS OF KIDNEY (6) UTI (urinary tract infection) Code(s): N39.0 - URINARY TRACT INFECTION, SITE NOT SPECIFIED (7) Urinary tract obstruction due to kidney stone Code(s): N20.0 - CALCULUS OF KIDNEY N13.8 - OTHER OBSTRUCTIVE AND REFLUX UROPATHY Assessment/Plan S/P LITHOTRPSY DOING WELL DC PLANNING TOMORROW IVF/ABX/PAIN CONTROL
[2016-08-10] MEDS ORDERED: ATORVASTATIN CA 40 MG TABLET (FP) PO SCH (22:00)
[2016-08-10] MEDS ORDERED: MONTELUKAST NA 10 MG TABLET PO SCH (22:00)
[2016-08-11] MEDS: SODIUM CHLORIDE 0.45% 1,000 ML IV SCH (00:32)
[2016-08-11] MEDS ORDERED: INSULIN (NOVOLOG) ASPART 100 UNITS/ML 10ML VIAL ONE (06:18)
[2016-08-11] MEDS: INSULIN SLIDING SCALE (NOVOLOG) 1 VIAL SQ SCH (06:19)
[2016-08-11] MEDS: GABAPENTIN 400 MG CAPSULE (FP) PO SCH (06:20)
[2016-08-11 08:25] VITALS: BP 130/71; PULSE 66; TEMP 98.1
--- NOTE | 2016-08-11 09:19 | DS ---
Physical Examination Vital Signs: Vital Signs Temperature 98.1 F 08/11/16 08:00 Pulse Rate 66 08/11/16 08:00 Respiratory Rate 18 08/11/16 08:00 Blood Pressure 130/71 08/11/16 08:00 O2 Sat by Pulse Oximetry (%) 97 08/10/16 22:00 Findings/Remarks: AWAKE ALERT NAD Constitutional: Yes: Well Nourished Eyes: Yes: WNL HENT: Yes: WNL Neck: Yes: WNL Cardiovascular: Yes: WNL Respiratory: Yes: WNL Gastrointestinal: Yes: WNL Renal/: Yes: WNL Musculoskeletal: Yes: Muscle Weakness Extremities: Yes: Other Edema: Yes Peripheral Pulses WNL: Yes Integumentary: Yes: WNL Wound/Incision: Yes: Clean/Dry Neurological: Yes: Loss of Sensation, Paresthesia ...Motor Strength: LLE, RLE Psychiatric: Yes: Agitated, Other (COGNITIVE DYSFUNCTION) Labs: CBC, BMP 08/10/16 05:40 08/10/16 05:40 Discharge Summary Reason For Visit: UTI RENAL CALCULUS KIDNEY STONE Current Active Problems KEESHA (acute kidney injury) (Acute) Diabetes (Acute) H/O: CVA (cerebrovascular accident) (Acute) WITH DEMENTIA HTN (hypertension) (Acute) Intractable abdominal pain (Acute) Pacemaker (Acute) Renal calculus, right (Acute) UTI (urinary tract infection) (Acute) Urinary tract obstruction due to kidney stone (Acute) Procedures: Principal: LITHOTRYPSY Other Procedures: LABS/CX Hospital Course: ADMITTED FOR RENAL COLIC, RETENTION, FLANK PAIN TREATED WITH RENAL CALCIS OBSTRUCTION WITH LITHOTRYPSY, FEELING BETTER, WILL DC HOME WITH 24HR HOME CARE DUE TO WORSENING DEMENTIA Condition: Improved - Instructions Diet, Activity, Other Instructions: LOW SODIUM Referrals: Ayleen Wick MD [Primary Care Provider] - Disposition: INTERMEDIATE FACILITY - Home Medications Comprehensive Discharge Medication List: Ambulatory Orders Albuterol Sulfate [Proair Respiclick] 90 mcg IH TID PRN 08/07/16 Atorvastatin Ca [Lipitor] 40 mg PO HS 08/07/16 Ciprofloxacin [Cipro (Restricted To Id)] 500 mg PO BID 08/07/16 Citalopram Hydrobromide [Celexa -] 10 mg PO DAILY 08/07/16 Clopidogrel Bisulfate [Plavix -] 75 mg PO DAILY 08/07/16 Famotidine [Pepcid] 40 mg PO BID 08/07/16 Fesoterodine Fumarate [Toviaz] 8 mg PO DAILY 08/07/16 Gabapentin 400 mg PO TID 08/07/16 Glyburide Micronized [Glynase -] 6 mg PO BID 08/07/16 Insulin Glargine,Hum.rec.anlog [Lantus Solostar PEN (NF)] 30 units SQ HS Insulin Lispro [Humalog] 12 unit SQ TID 08/07/16 Irbesartan 150 mg PO DAILY 08/07/16 Irbesartan [Avapro] 150 mg PO DAILY 08/07/16 Montelukast Na [Singulair -] 10 mg PO HS 08/07/16
[2016-08-11] MEDS ORDERED: POLYETHYLENE GLYCOL 3350 119 GM BTL PO SCH (10:00)
[2016-08-11] MEDS ORDERED: CEFUROXIME AXETIL 500 MG TABLET PO SCH (10:00)
[2016-08-11] MEDS ORDERED: LOSARTAN POTASSIUM 50 MG TABLET (FP) PO SCH (10:00)
[2016-08-11] MEDS ORDERED: PT OWN MED DRAWER 7, Y5N ONE (10:07)
[2016-08-11] MEDS: CITALOPRAM HYDROBROMIDE 10 MG TABLET (FP) PO SCH (10:13)
[2016-08-11] MEDS: TOLTERODINE TARTRATE LA 4 MG CAP.SR.24H (FP) PO SCH (10:13)
--- NOTE | 2016-08-11 10:35 | PN ---
Progress Note, Physician Chief Complaint: ID NAD Now oral antibiotics - Current Medication List Current Medications: Active Medications Atorvastatin Calcium (Lipitor -) 40 mg PO HS [facility] Last Admin: 08/10/16 21:17 Dose: 40 mg Cefuroxime Axetil (Ceftin -) 500 mg PO BID [facility] Citalopram Hydrobromide (Celexa -) 10 mg PO DAILY [facility] Last Admin: 08/11/16 10:13 Dose: 10 mg Gabapentin (Neurontin -) 400 mg PO TID [facility] Last Admin: 08/11/16 06:20 Dose: 400 mg Losartan Potassium (Cozaar -) 50 mg PO DAILY [facility] Last Admin: 08/11/16 10:12 Dose: 50 mg Montelukast Sodium (Singulair -) 10 mg PO HS [facility] Last Admin: 08/10/16 21:18 Dose: 10 mg Polyethylene Glycol (Miralax (For Daily Use) -) 17 gm PO DAILY [facility] Last Admin: 08/11/16 10:11 Dose: 17 gm Tolterodine Tartrate (Detrol La -) 4 mg PO DAILY [facility] Last Admin: 08/11/16 10:13 Dose: 4 mg - Objective Vital Signs: Vital Signs Temperature 98.1 F 08/11/16 08:00 Pulse Rate 66 08/11/16 08:00 Respiratory Rate 18 08/11/16 08:00 Blood Pressure 130/71 08/11/16 08:00 O2 Sat by Pulse Oximetry (%) 98 08/11/16 09:00 Constitutional: Yes: Well Nourished, No Distress Neck: Yes: WNL, Supple Cardiovascular: Yes: Regular Rate and Rhythm, S1, S2 Respiratory: Yes: WNL, Regular, CTA Bilaterally Gastrointestinal: Yes: WNL, Normal Bowel Sounds, Soft. No: Tenderness, Tenderness, Rebound Edema: No Labs: CBC, BMP 08/10/16 05:40 08/10/16 05:40 INR, PTT INR 1.11 (0.82-1.09) 08/10/16 05:40 Assessment/Plan Microbiology 08/07/16 12:19 Urine - Urine Weller Urine Culture - Final Klebsiella Pneumoniae 08/08/16 15:45 Blood - Peripheral Venous Blood Culture - Preliminary NO GROWTH OBTAINED AFTER 48 HOURS, INCUBATION TO CONTINUE FOR 3 DAYS. 08/08/16 15:45 Blood - Peripheral Venous Blood Culture - Preliminary NO GROWTH OBTAINED AFTER 48 HOURS, INCUBATION TO CONTINUE FOR 3 DAYS. Laboratory Tests 08/07/16 08/10/16 08/10/16 12:19 05:40 05:40 WBC 8.9 Hgb 11.1 Hct 32.2 L Plt Count 324 BUN 22 H Creatinine 0.9 Creat Clearance w eGFR > 60 Ur Leukocyte Esterase 3+ H Urine RBC 119 Urine WBC 1878 Urine Bacteria Many Assessment Urinary infection better Plan Discharge now on oral antibiotic as outlined Yas STANLEY
== END 2016-08-11 11:35 | disposition home or self-care (01) | DRG 683 ==
LOC: JER 11:07 → JERBED 15:08 → J6S 17:33
PROVIDERS: ADMIT Family Medicine; ATTEND Family Medicine
PROC: 0T768DZ Dilation of Right Ureter with Intraluminal Device, Via Natural or Artificial Opening Endoscopic (ICD-10-PCS; principal; 2016-08-10 09:00)
PROC: BT1D1ZZ Fluoroscopy of Right Kidney, Ureter and Bladder using Low Osmolar Contrast (ICD-10-PCS; 2016-08-10 09:00)
DX: N17.9 Acute kidney failure, unspecified (principal); N39.0 Urinary tract infection, site not specified; N13.8 Other obstructive and reflux uropathy; I69.354 Hemiplegia and hemiparesis following cerebral infarction affecting left non-dominant side; N20.0 Calculus of kidney; N13.6 Pyonephrosis; E11.9 Type 2 diabetes mellitus without complications; I10 Essential (primary) hypertension; Z95.0 Presence of cardiac pacemaker; B96.1 Klebsiella pneumoniae [K. pneumoniae] as the cause of diseases classified elsewhere; E66.9 Obesity, unspecified; Z68.35 Body mass index [BMI] 35.0-35.9, adult; Z71.3 Dietary counseling and surveillance
CPT/HCPCS: 36415; 71010-TC; 74176; 76000-TC; 76775-TC; 80053; 81003; 81015; 82150; 83605; 83690; 85025; 85610; 87040; 87086; 87186; 93005; 93010; 94760; 99284-25

== ENCOUNTER 2016-12-04 12:42 | Inpatient (IN) | payer OTHER ==
[2016-12-04] MEDS ORDERED: SODIUM CHLORIDE 0.9% 1000 ML INFUS.BAG IV PRN (13:34)
--- NOTE | 2016-12-04 14:13 | PDOC ---
History of Present Illness - General Chief Complaint: Headache Stated Complaint: DIZZINESS, GENERALIZED WEAKNESS Time Seen by Provider: 12/04/16 12:48 - History of Present Illness Initial Comments: 12/04/16 14:06 CHIEF COMPLAINT: weakness HISTORY OF PRESENT ILLNESS: 71 yo F with hx of HTN, DM2, kidney stones, s/p pacemaker (on Plavix) presents to ED with weakness, headache, and lightheadedness since yesterday. She also reports that she feels her right hand and arm are trembling again after a similar problem one month ago. She denies any fever, chills, nausea, vomiting, chest pain, shortness of breath, difficulty breathing, headache. She states that she was started on antibiotics by her urologiest s/p ureteral stent removal on Tuesday; she started the antibiotics yesterday. No recent travel or sick contacts. PAST MEDICAL HISTORY: Denies past medical history FAMILY HISTORY: Denies SOCIAL HISTORY: Denies tobacco, alcohol, illicit drug use. SURGICAL HISTORY: cholecystectomy PCP: Shamika ALLERGIES: aspirin REVIEW OF SYSTEMS General/Constitutional: Weakness x 1 day. Denies fever or chills. HEENT: Denies change in vision. Denies ear pain or discharge. Denies sore throat. Cardiovascular: Denies chest pain or shortness of breath. Respiratory: Denies cough, wheezing, or hemoptysis. Gastrointestinal: Denies nausea, vomiting, diarrhea or constipation. Denies rectal bleeding. Genitourinary: Denies dysuria, frequency, or change in urination. Musculoskeletal: Denies joint or muscle swelling or pain. Denies neck or back pain. Skin and breasts: Denies rash or easy bruising. Neurologic: Headache, lightheadness x 1 day. loss of consciousness, or loss of sensation. PHYSICAL EXAM General Appearance: Uncomfortable-appearing, appropriately dressed. HEENT: EOMI, PERRLA, normal ENT inspection, normal voice, TMs normal, pharynx normal. No conjunctival pallor. No photophobia, scleral icterus. Neck: Supple. Trachea midline. No tenderness, rigidity, carotid bruit, stridor , lymphadenopathy, or thyromegaly. Respiratory/Chest: Lungs CTAB. Cardiovascular: RRR. S1, S2. Vascular Pulses: Dorsalis-Pedis (R): 2+, Dorsalis-Pedis (L): 2+ Gastrointestinal/Abdominal: Normal bowel sounds. Abdomen soft, non-distended. No tenderness or rebound tenderness. No organomegaly, pulsatile mass, guarding , hernia, hepatomegaly, splenomegaly. Musculoskeletal/Extremities: Mild extension tremor to hands bilaterally. Normal inspection. FROM of all extremities, normal capillary refill. Pelvis Stable. No CVA tenderness. No tenderness to extremities, pedal edema, swelling , erythema or deformity. Integumentary: Appropriate color, dry, warm. No cyanosis, erythema, jaundice or rash Neurologic: cryptanalyst II-XII intact. Fully oriented, alert. Appropriate mood/affect. Motor strength 5/5. No appreciable EOM palsy, facial droop or sensory deficit. 12/04/16 14:19 Past History - Past Medical History Allergies/Adverse Reactions: Allergies Allergy/AdvReac Type Severity Reaction Status Date / Time aspirin Allergy Verified 12/04/16 13:04 Home Medications: Ambulatory Orders Acetaminophen [Tylenol Arthritis] 650 mg PO Q8H PRN 12/04/16 Albuterol Sulfate [Proair Respiclick] 90 mcg IH HS 12/04/16 Atorvastatin Calcium 40 mg PO HS 12/04/16 Citalopram Hydrobromide [Celexa -] 10 mg PO DAILY 12/04/16 Clopidogrel Bisulfate [Plavix -] 75 mg PO DAILY 12/04/16 Famotidine [Pepcid -] 40 mg PO TID 12/04/16 Fesoterodine Fumarate [Toviaz] 8 mg PO DAILY 12/04/16 Gabapentin 400 mg PO TID 12/04/16 Glyburide 6 mg PO BID 12/04/16 Insulin Glargine,Hum.rec.anlog [Lantus Solostar PEN (NF)] 30 units SQ HS Insulin Lispro [Humalog] 12 unit SQ TID 12/04/16 Irbesartan 150 mg PO DAILY 12/04/16 Irbesartan [Avapro] 150 mg PO DAILY 12/04/16 Montelukast Na [Singulair -] 10 mg PO HS 12/04/16 Pantoprazole Sodium [Protonix -] 20 mg PO DAILY 12/04/16 Asthma: Yes Cancer: No Cardiac Disorders: No CVA: Yes (LEft residual weakness) Diabetes: Yes GI Disorders: Yes (GERD) Disorders: Yes (KIDNEY STONES, URINARY INCONTINENCE, UTI) HTN: Yes Hypercholesterolemia: Yes - Surgical History Cardiac Surgery: Yes Cholecystectomy: Yes Orthopedic Surgery: Yes (LEFT HIP REPLACEMENT) - Psycho/Social/Smoking Cessation Hx Suicidal Ideation: No Smoking History: Never smoked Have you smoked in the past 12 months: No Information on smoking cessation initiated: No Hx Alcohol Use: No Drug/Substance Use Hx: No Substance Use Type: None *Physical Exam - Vital Signs Last Vital Signs Temp Pulse Resp BP Pulse Ox 100.6 F H 80 19 141/64 98 12/04/16 12:58 12/04/16 12:58 12/04/16 12:58 12/04/16 12:58 12/04/16 13:07 Procedures - Consent Consent obtained: Verbal, Written, From Patient - Central Line Central Line Lumen: triple Central Line Position: internal jugular (R) Anesthesia: 1% Lidocaine Amount of anesthesia (ccs): 4 Complications: none Post Central Line Insertion: sutured, good blood return, position confirmed w/ CXR ED Treatment Course - LABORATORY CBC & Chemistry Diagram: 12/04/16 14:38 12/04/16 13:40 - RADIOLOGY Radiology Studies Ordered: Category Date Time Status CHEST X-RAY PORTABLE* [RAD] Stat Radiology 12/04/16 13:34 Completed Medical Decision Making - Medical Decision Making 12/04/16 15:34 71 yo F with hx of HTN, DM2, kidney stones, s/p pacemaker (on Plavix) presents to ED with weakness, headache, and lightheadedness since yesterday. VS remarkable for temp of 100.6F. Full sepsis workup. Labs: WBC 16.5, lactic acid 2.3, creatinine 2.3. Rectal temp 103.5 12/04/16 18:44 PIV access unobtainable. Tylenol 975 mg. RIJ CVC placed without complication, confirmed on x-ray (see procedure note). -Zosyn IVPB -Vanc IVPB Will admit for inpatient services. Dr. Wick's service paged at 6:45 pm. Awaiting callback . *DC/Admit/Observation/Transfer Diagnosis at time of Disposition: KEESHA (acute kidney injury) UTI (urinary tract infection) Qualifiers: Urinary tract infection type: site unspecified Hematuria presence: without hematuria Qualified Code(s): N39.0 - Urinary tract infection, site not specified Sepsis Qualifiers: Sepsis type: sepsis due to unspecified organism Qualified Code(s): A41.9 - Sepsis, unspecified organism - Discharge Dispostion Admit: Yes - Referrals Referrals: Ayleen Wick MD [Primary Care Provider] -
[2016-12-04 14:40] LABS: ARTERIAL BLD GAS O2 SATURATION 95.9 % (90-98.9); ARTERIAL BLOOD GAS BASE EXCESS -2.7 meq/l (-2-2); ARTERIAL BLOOD GAS HCO3 19.5 meq/L (22-26)
[2016-12-04 14:41] LABS: LPM/O2% 21%; TYPE OF O2 ROOM AIR
[2016-12-04 14:42] LABS: ARTERIAL BLOOD GAS PO2 73.6 mmHg (80-100); ARTERIAL BLOOD GAS pH 7.47 (7.35-7.45)
[2016-12-04 14:43] LABS: METHEMOGLOBIN 0.5 % (0.4-1.5)
[2016-12-04 14:51] LABS: BASOPHIL 0.5 % (0-2.0); MCH 28.8 pg (25.7-33.7); MCHC 33.1 g/dl (32.0-36.0); MEAN CELL VOLUME 87.1 fl (80-96); NEUTROPHILS 84.7 % (42.8-82.8); PLATELET COUNT 200 K/MM3 (134-434); RDW 13.4 % (11.6-15.6); WHITE BLOOD COUNT 16.5 K/mm3 (4.0-10.0)
[2016-12-04 14:53] LABS: ALK PHOS 146 U/L (45-117); ANION GAP 14 (8-16); BILIRUBIN,TOTAL 1.1 mg/dL (0.2-1.0); CALCIUM 9.9 mg/dL (8.5-10.1); CO2 18 mmol/L (21-32); COCKROFT - GAULT 26.4435; CREATININE 2.3 mg/dL (0.55-1.02); SGOT/AST 14 U/L (15-37); SGPT/ALT 23 U/L (12-78); TOT PROT 7.8 g/dl (6.4-8.2)
[2016-12-04 14:56] LABS: TROPONIN I < 0.02 ng/ml (0.00-0.05)
[2016-12-04 14:57] LABS: GLUCOSE,RANDOM 366 mg/dL (74-106)
[2016-12-04] MEDS ORDERED: INSULIN REGULAR HUMAN 100 UNITS/ML *VIAL SQ ONE (14:58)
[2016-12-04] MEDS ORDERED: INSULIN REGULAR HUMAN 100 UNITS/ML *VIAL ONE (15:04)
[2016-12-04 15:28] LABS: INR 1.3 (0.82-1.09); PROTHROMBIN TIME (PATIENT) 14.4 SEC (9.98-11.88)
[2016-12-04 15:30] LABS: ACTIVATED PTT 36.2 SECONDS (26.9-34.4)
[2016-12-04 15:45] LABS: URINE APPEARANCE TURBID; URINE BILIRUBIN NEGATIVE (NEGATIVE); URINE COLOR DKYELLOW; URINE GLUCOSE (UA) NEGATIVE (NEGATIVE); URINE KETONE NEGATIVE (NEGATIVE); URINE NITRITE NEGATIVE (NEGATIVE); URINE UROBILINOGEN NEGATIVE E.U./dl (0.2-1.0)
[2016-12-04 15:48] LABS: URINE BLOOD 2+ (NEGATIVE); URINE LEUK ESTERASE 3+ (NEGATIVE); URINE PROTEIN 2+ (NEGATIVE)
[2016-12-04 15:59] LABS: URINE BACTERIA RARE /hpf (NONE SEEN); URINE RBC 141 /hpf (0-3); URINE WBC 1656 /hpf (3-5)
[2016-12-04] MEDS ORDERED: ACETAMINOPHEN 325 MG TABLET (FP) ONE (16:23)
[2016-12-04] MEDS ORDERED: PIPERACILLIN/TAZOB 3.375 GM/50 ML PRE-DOCKED IV ONE (16:40)
[2016-12-04] MEDS ORDERED: VANCOMYCIN 1 GRAM (PRE-DOCKED) 1,000 MG/250 ML BAG IVPB ONE (16:40)
[2016-12-04] MEDS ORDERED: ACETAMINOPHEN 325 MG TABLET (FP) PO ONE (17:23)
[2016-12-04] MEDS ORDERED: LORAZEPAM CARPU-JECT 2 MG/ML DISP.SYRIN IM ONE (17:27)
[2016-12-04] MEDS ORDERED: LORazepam 2 MG/ML SDV VIAL ONE (17:28)
[2016-12-04] MEDS ORDERED: PIPERACILLIN/TAZOB 3.375 GM 50 ML IVPB ONE (18:48)
--- NOTE | 2016-12-04 19:15 | EKG ---
Test Reason : Blood Pressure : / mmHG Vent. Rate : 080 BPM Atrial Rate : 080 BPM P-R Int : 000 ms QRS Dur : 182 ms QT Int : 438 ms P-R-T Axes : 000 -53 104 degrees QTc Int : 505 ms Ventricular-paced rhythm ABNORMAL ECG WHEN COMPARED WITH ECG OF 07-AUG-2016 11:25, ELECTRONIC VENTRICULAR PACEMAKER HAS REPLACED SINUS RHYTHM Confirmed by RENALDO CLAYTON MD ([id number]) on 12/04/2016 7:14:37 PM Referred By: Confirmed By:RENALDO CLAYTON MD
[2016-12-04] MEDS ORDERED: IBUPROFEN 800 MG/8 ML IJ IVPB ONE ×2 (19:26→19:39)
[2016-12-04] MEDS ORDERED: VANCOMYCIN 1 GRAM (PRE-DOCKED) 250 ML IVPB ONE (19:40)
--- NOTE | 2016-12-04 19:58 | PN ---
Teaching Attending Note Name of Resident: Melany Whatley ATTENDING PHYSICIAN STATEMENT I saw and evaluated the patient. I reviewed the resident's note and discussed the case with the resident. I agree with the resident's findings and plan as documented. SUBJECTIVE: OBJECTIVE: ASSESSMENT AND PLAN:
[2016-12-04 21:20] LABS: TROPONIN I < 0.02 ng/ml (0.00-0.05)
[2016-12-04] MEDS ORDERED: ALBUTEROL SO4 6.7 GM HFA INHALER IH PRN (21:50)
[2016-12-04] MEDS ORDERED: LORazepam 0.5 MG TABLET PO PRN (21:53)
[2016-12-04] MEDS: GABAPENTIN 400 MG CAPSULE (FP) PO SCH (22:36)
[2016-12-04] MEDS: ATORVASTATIN CA 40 MG TABLET (FP) PO SCH (22:36)
[2016-12-04] MEDS: MONTELUKAST NA 10 MG TABLET PO SCH (22:36)
[2016-12-05] MEDS: INSULIN SLIDING SCALE (NOVOLOG) 1 VIAL SQ SCH ×6 (06:12→22:02)
[2016-12-05] MEDS: INSULIN DETEMIR 100 UNITS/ML MDV SQ SCH ×2 (06:12→22:02)
[2016-12-05] MEDS: GABAPENTIN 400 MG CAPSULE (FP) PO SCH ×4 (06:14→21:52)
[2016-12-05] MEDS: glyBURIDE 5 MG TABLET (UD) PO SCH (06:15)
--- NOTE | 2016-12-05 09:03 | HP ---
Admitting History and Physical - Admission History of Present Illness: 71 yo F with hx of HTN, DM2, kidney stones, s/p pacemaker (on Plavix) presents to ED with weakness, headache, and lightheadedness since yesterday. She also reports that she feels her right hand and arm are trembling again after a similar problem one month ago. She denies any fever, chills, nausea, vomiting, chest pain, shortness of breath, difficulty breathing, headache. She states that she was started on antibiotics by her urologiest s/p ureteral stent removal on Tuesday; she started the antibiotics yesterday. THIS AM PT WEAK AND NOT ANSWERING MY QUESTIONS?--? 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 Cardiovascular: Yes: HTN, Hyperlipdemia, Other (PPP) Endocrine: Yes: Diabetes Mellitus - Past Surgical History Past Surgical History: Yes: Permanent Pacemaker, Cholecystectomy - Smoking History Smoking history: Never smoked Have you smoked in the past 12 months: No - Alcohol/Substance Use Hx Alcohol Use: No Home Medications - Allergies Allergies/Adverse Reactions: Allergies Allergy/AdvReac Type Severity Reaction Status Date / Time aspirin Allergy Verified 12/04/16 13:04 - Home Medications Home Medications: Ambulatory Orders Acetaminophen [Tylenol Arthritis] 650 mg PO Q8H PRN 12/04/16 Albuterol Sulfate [Proair Respiclick] 90 mcg IH HS 12/04/16 Atorvastatin Calcium 40 mg PO HS 12/04/16 Citalopram Hydrobromide [Celexa -] 10 mg PO DAILY 12/04/16 Clopidogrel Bisulfate [Plavix -] 75 mg PO DAILY 12/04/16 Famotidine [Pepcid -] 40 mg PO TID 12/04/16 Fesoterodine Fumarate [Toviaz] 8 mg PO DAILY 12/04/16 Gabapentin 400 mg PO TID 12/04/16 Glyburide 6 mg PO BID 12/04/16 Insulin Glargine,Hum.rec.anlog [Lantus Solostar PEN (NF)] 30 units SQ HS Insulin Lispro [Humalog] 12 unit SQ TID 12/04/16 Irbesartan 150 mg PO DAILY 12/04/16 Irbesartan [Avapro] 150 mg PO DAILY 12/04/16 Montelukast Na [Singulair -] 10 mg PO HS 12/04/16 Pantoprazole Sodium [Protonix -] 20 mg PO DAILY 12/04/16 Physical Examination Vital Signs: Vital Signs Temperature 97.1 F L 12/05/16 06:00 Pulse Rate 80 12/05/16 06:00 Respiratory Rate 20 12/05/16 06:00 Blood Pressure 110/64 12/05/16 06:00 O2 Sat by Pulse Oximetry (%) 100 12/04/16 23:00 Cardiovascular: Yes: S1, S2 Respiratory: Yes: Regular, CTA Bilaterally Gastrointestinal: Yes: Normal Bowel Sounds, Soft Neurological: Yes: Alert, Aphasia (----NOT ANSWERING QUESTIONS) Imaging - Results X-ray: Report Reviewed Problem List - Problems (1) KEESHA (acute kidney injury) Assessment/Plan: Laboratory Tests 12/04/16 13:40 BUN 45 H D Creatinine 2.3 H D RENAL CONSULT MONITOR Code(s): N17.9 - ACUTE KIDNEY FAILURE, UNSPECIFIED (2) Sepsis Code(s): A41.9 - SEPSIS, UNSPECIFIED ORGANISM Qualifiers: Sepsis type: sepsis due to unspecified organism Qualified Code(s): A41.9 - Sepsis, unspecified organism (3) UTI (urinary tract infection) Assessment/Plan: ABX ID CONSULT Code(s): N39.0 - URINARY TRACT INFECTION, SITE NOT SPECIFIED Qualifiers: Urinary tract infection type: site unspecified Hematuria presence: without hematuria Qualified Code(s): N39.0 - Urinary tract infection, site not specified (4) Diabetes Assessment/Plan: BGM INSULIN ENDO Code(s): E11.9 - TYPE 2 DIABETES MELLITUS WITHOUT COMPLICATIONS (5) H/O: CVA (cerebrovascular accident) Assessment/Plan: R/O NEW EVENT CT OF HEAD Code(s): Z86.73 - PRSNL HX OF TIA (TIA), AND CEREB INFRC W/O RESID DEFICITS (6) Pacemaker Assessment/Plan: PACING Code(s): Z95.0 - PRESENCE OF CARDIAC PACEMAKER
[2016-12-05] MEDS ORDERED: PT OWN MED DRAWER 7, Y5N ONE (09:39)
[2016-12-05] MEDS ORDERED: VALSARTAN 160 MG TABLET (UD) PO SCH (10:00)
[2016-12-05] MEDS: PANTOPRAZOLE 40 MG TABLET (FP) PO SCH (10:06)
[2016-12-05] MEDS: CLOPIDOGREL BISULFATE 75 MG TABLET (FP) PO SCH (10:06)
[2016-12-05] MEDS: CITALOPRAM HYDROBROMIDE 10 MG TABLET (FP) PO SCH (10:07)
[2016-12-05 11:42] LABS: BASOPHIL 0.2 % (0-2.0); EOSINOPHIL 1.2 % (0-4.5); MCH 29.3 pg (25.7-33.7); MCHC 33.2 g/dl (32.0-36.0); MEAN CELL VOLUME 88.3 fl (80-96); MEAN PLT VOLUME 8.4 fl (7.5-11.1); NEUTROPHILS 83.9 % (42.8-82.8); PLATELET COUNT 177 K/MM3 (134-434); RDW 13.4 % (11.6-15.6); WHITE BLOOD COUNT 10.6 K/mm3 (4.0-10.0)
[2016-12-05 12:01] LABS: ALBUMIN 2.3 g/dl (3.4-5.0); BILIRUBIN,TOTAL 0.9 mg/dL (0.2-1.0); CALCIUM 9.2 mg/dL (8.5-10.1); COCKROFT - GAULT 33.6855; CREATININE 2.6 mg/dL (0.55-1.02); TOT PROT 6.2 g/dl (6.4-8.2)
--- NOTE | 2016-12-05 12:33 | PN ---
Progress Note (short form) - Note Progress Note: ID consult dictated 71 y/o female admitted with weakness, dizziness Febrile 103.5 WBC 16.5 U/A +++ WBC Ureteral stent removed 11/03/16 UTI/ Sepsis secondary to UTI Fever/ leukocytosis Lactic acidosis Azotemia Pending c/s empiric cefepime
[2016-12-05] MEDS ORDERED: CEFEPIME HCL 1 GM VIAL (RESTRICTED TO ID) IVPB SCH (12:45)
--- NOTE | 2016-12-05 13:24 | CON.NEP ---
Consult Consult Specialty:: Nephrology Referred by:: Gretchen Reason for Consultation:: KEESHA - History of Present Illness Chief Complaint: Weakness History of Present Illness: 71 yo F with hx of HTN, DM2, kidney stones, s/p pacemaker, S/P CVA presents to ED with weakness, headache, and lightheadedness prior to admission. Pt recently had a ureteral stent removed 12/01/16 and is now admitted with sepsis likely from a urinary source. 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 Cardio/Vascular: Yes: HTN, Hyperlipdemia, Other (PPM) Endocrine: Yes: Diabetes Mellitus - Past Surgical History Past Surgical History: Yes: Permanent Pacemaker, Cholecystectomy - Alcohol/Substance Use Hx Alcohol Use: No - Smoking History Smoking history: Never smoked Have you smoked in the past 12 months: No Home Medications - Allergies Allergies/Adverse Reactions: Allergies Allergy/AdvReac Type Severity Reaction Status Date / Time aspirin Allergy Verified 12/04/16 13:04 - Home Medications Home Medications: Ambulatory Orders Acetaminophen [Tylenol Arthritis] 650 mg PO Q8H PRN 12/04/16 Albuterol Sulfate [Proair Respiclick] 90 mcg IH HS 12/04/16 Atorvastatin Calcium 40 mg PO HS 12/04/16 Citalopram Hydrobromide [Celexa -] 10 mg PO DAILY 12/04/16 Clopidogrel Bisulfate [Plavix -] 75 mg PO DAILY 12/04/16 Famotidine [Pepcid -] 40 mg PO TID 12/04/16 Fesoterodine Fumarate [Toviaz] 8 mg PO DAILY 12/04/16 Gabapentin 400 mg PO TID 12/04/16 Glyburide 6 mg PO BID 12/04/16 Insulin Glargine,Hum.rec.anlog [Lantus Solostar PEN (NF)] 30 units SQ HS Insulin Lispro [Humalog] 12 unit SQ TID 12/04/16 Irbesartan 150 mg PO DAILY 12/04/16 Irbesartan [Avapro] 150 mg PO DAILY 12/04/16 Montelukast Na [Singulair -] 10 mg PO HS 12/04/16 Pantoprazole Sodium [Protonix -] 20 mg PO DAILY 12/04/16 Nephrology Consult - Height Height: 5 ft 7 in - Weight Weight: 230 lb 6.4 oz - BMI Body Mass Index (BMI): 36.1 - Lab Results CBC,BMP: CBC, BMP 12/05/16 11:20 12/05/16 11:20 Laboratory Tests 12/04/16 12/04/16 12/05/16 13:40 14:38 11:20 BUN 45 H D Creatinine 2.3 H D Random Glucose 366 H* D Lactic Acid 2.3 H* Calcium 9.2 Total Bilirubin 0.9 AST 34 D ALT 24 Alkaline Phosphatase 120 H Troponin I < 0.02 Total Protein 6.2 L D Albumin 2.3 L D U/A: Laboratory Tests 12/04/16 14:38 Urine Color Dkyellow Urine Appearance Turbid Urine pH 5.0 Ur Specific [place] 1.015 Urine Protein 2+ H Urine Glucose (UA) Negative Urine Ketones Negative Urine Blood 2+ H Urine Bilirubin Negative Urine Urobilinogen Negative Ur Leukocyte Esterase 3+ H Urine RBC 141 Urine WBC 1656 Anion Gap: Anion Gap Anion Gap 12 (8-16) 12/05/16 11:20 - Imaging Chest X-ray: Report Reviewed, Image Reviewed, Other (RIJ line and L sided PPM along with poor inspiratory effort noted) EKG: Other (Paced rhythm) - Physical Examination Vital Signs: Vital Signs Temperature 98.8 F 12/05/16 10:00 Pulse Rate 67 12/05/16 10:00 Respiratory Rate 18 12/05/16 10:00 Blood Pressure 104/60 12/05/16 10:00 O2 Sat by Pulse Oximetry (%) 100 12/05/16 09:00 Constitutional: Yes: No Distress Neck: Yes: Supple, Other (Right IJ line) Cardiovascular: Yes: S1, S2. No: JVD Respiratory: Yes: CTA Bilaterally Gastrointestinal: Yes: Soft. No: Tenderness, Rebound Edema: (No LE edema ) Neurological: Yes: Other (Left sided weakness) Assessment/Plan Impression KEESHA from sepsis with relatively low BP and prior use of an ARB- R/O post renal cause Hyponatremia in part from the uncontrolled DM HTN now with relatively low BP Sepsis likely from a urinary source S/P recent removal of a urinary stent for urolithiasis Anemia S/P CVA with left HP S/P PPM Plan Urine for Spot Na and Cr Renal and urinary bladder US Add NS Empiric Abx as per ID D/C Valsartan Await culture results Rpt labs in am Monitor Hgb and w/u as per PMD Control of the DM with SSI Avoid nephrotoxic agents such as NSAIDs, IV contrast etcThank You Will follow Dr Martinez
[2016-12-05 13:25] VITALS: BMI 36.1
[2016-12-05] MEDS: SODIUM CHLORIDE 1,000 ML IV SCH (15:32)
[2016-12-05] MEDS: CEFEPIME 1 GM/100 ML BAG PRE-DOCKED IVPB SCH ×2 (15:33→17:04)
--- NOTE | 2016-12-05 16:29 | EKG ---
Test Reason : Blood Pressure : / mmHG Vent. Rate : 091 BPM Atrial Rate : 234 BPM P-R Int : 000 ms QRS Dur : 142 ms QT Int : 398 ms P-R-T Axes : 000 -50 111 degrees QTc Int : 489 ms POOR DATA QUALITY, INTERPRETATION MAY BE ADVERSELY AFFECTED Ventricular-paced rhythm WITH OCCASIONAL PREMATURE VENTRICULAR COMPLEXES ABNORMAL ECG WHEN COMPARED WITH ECG OF 04-DEC-2016 12:59, PREMATURE VENTRICULAR COMPLEXES ARE NOW PRESENT VENT. RATE HAS INCREASED BY 11 BPM Confirmed by RENALDO CLAYTON MD ([id number]) on 12/05/2016 4:29:00 PM Referred By: Confirmed By:RENALDO CLAYTON MD
--- NOTE | 2016-12-05 16:57 | CONS ---
DATE OF CONSULTATION: DATE OF DICTATION: 12/05/2016 The patient is a 71-year-old female with a history of diabetes mellitus, stroke, and nephrolithiasis, evaluated for sepsis. History was obtained primarily from the chart. She was admitted to the hospital on December 04, 2016, with complaints of worsening generalized weakness, lightheadedness, and right upper extremity tremors. According to the notes, she had undergone a removal of a ureteral stent on Thursday, December 01, 2016. She was prescribed an oral antibiotic, however, for reasons not clear, she did not start taking the antibiotic until 1 day prior to admission. She was evaluated at [facility], where her temperature was 103.5, white blood cell count 16,000, urinalysis showed many white cells. She was empirically treated with vancomycin and Zosyn. At the present time, she is awake and alert. She complains of left arm pain. She denies any dysuria at the present time, however, according to the nurse's aide, she did report recent mild dysuria. No complaints of suprapubic or flank pain. Past medical history positive for diabetes mellitus, hypertension, stroke, nephrolithiasis. PAST SURGICAL HISTORY: Status post permanent pacemaker, cholecystectomy, left total hip replacement. Allergies to ASPIRIN. Outpatient medications include albuterol, Lipitor, Celexa, Plavix, Pepcid, Neurontin, glyburide, Humalog, Singulair, Protonix. SOCIAL HISTORY: Lives at home. Nonsmoker, nondrinker. SYSTEMS REVIEW: Neurologic: Positive for stroke. Cardiac: Negative chest pain or palpitations. Respiratory: Negative cough or sputum production. Gastrointestinal: Negative vomiting or diarrhea. Genitourinary: As per HPI. LABORATORY DATA: White count 16.5, hematocrit 32.8, platelet count 200, BUN 45, creatinine 2.3, lactic acid 2.3. Urinalysis: 1656 white cells. Blood and urine cultures are pending. Chest x-ray: Negative for acute infiltrate. PHYSICAL EXAMINATION: General: The patient is awake and alert, obese. Vital Signs: Temperature 98. T-max 103.5. Blood pressure 104/60. Pulse 67, regular. Respirations 18 per minute. Eyes: Sclerae anicteric. Heart Sounds: S1, S2. Lungs: Clear. Abdomen: Soft, obese. No tenderness elicited. No suprapubic or flank tenderness. Extremities: Positive for upper and lower extremity edema. IMPRESSION: A 71-year-old female admitted with weakness and dizziness, status post ureteral stent removal, febrile, with elevated white blood cell count, pyuria, and lactic acidosis. 1. Urinary tract infection/sepsis secondary to urinary tract infection. 2. Fever, leukocytosis. 3. Lactic acidosis. 4. Azotemia. 5. Diabetes mellitus. Previous cultures reviewed. The patient had a relatively sensitive Klebsiella in the urine from August 2016. Pending cultures, will empirically treat with cefepime 1 g IV piggyback every 8 hours. Urology followup. Will follow. Thank you for the kind referral. CARTER MERINO M.D. [id number]
[2016-12-05] MEDS ORDERED: INSULIN (NOVOLOG) ASPART 100 UNITS/ML 10ML VIAL ONE ×2 (18:06→21:25)
[2016-12-05] MEDS: MONTELUKAST NA 10 MG TABLET PO SCH (21:52)
[2016-12-05] MEDS: ATORVASTATIN CA 40 MG TABLET (FP) PO SCH (21:52)
--- NOTE | 2016-12-06 01:21 | CONSULT ---
Consult Consult Specialty:: endocrine Referred by:: dr.[email or web address] calderon Reason for Consultation:: uncontrolled diabetes mellitus - History of Present Illness Chief Complaint: weakness lethargy History of Present Illness: 71 yo F with hx of HTN, DM2, kidney stones, s/p pacemaker (on Plavix) presents to ED with weakness, headache, and lightheadedness since yesterday. She also reports that she feels her right hand and arm are trembling again after a similar problem one month ago. She denies any fever, chills, nausea, vomiting, chest pain, shortness of breath, difficulty breathing, headache,she is lethargic weak and lethargic - Past Medical History VP DESIGN: Yes: CVA Cardio/Vascular: Yes: HTN, Hyperlipdemia, Other (PPM) Endocrine: Yes: Diabetes Mellitus - Past Surgical History Past Surgical History: Yes: Permanent Pacemaker, Cholecystectomy - Alcohol/Substance Use Hx Alcohol Use: No - Smoking History Smoking history: Never smoked Have you smoked in the past 12 months: No Home Medications - Allergies Allergies/Adverse Reactions: Allergies Allergy/AdvReac Type Severity Reaction Status Date / Time aspirin Allergy Verified 12/04/16 13:04 - Home Medications Home Medications: Ambulatory Orders Acetaminophen [Tylenol Arthritis] 650 mg PO Q8H PRN 12/04/16 Albuterol Sulfate [Proair Respiclick] 90 mcg IH HS 12/04/16 Atorvastatin Calcium 40 mg PO HS 12/04/16 Citalopram Hydrobromide [Celexa -] 10 mg PO DAILY 12/04/16 Clopidogrel Bisulfate [Plavix -] 75 mg PO DAILY 12/04/16 Famotidine [Pepcid -] 40 mg PO TID 12/04/16 Fesoterodine Fumarate [Toviaz] 8 mg PO DAILY 12/04/16 Gabapentin 400 mg PO TID 12/04/16 Glyburide 6 mg PO BID 12/04/16 Insulin Glargine,Hum.rec.anlog [Lantus Solostar PEN (NF)] 30 units SQ HS Insulin Lispro [Humalog] 12 unit SQ TID 12/04/16 Irbesartan 150 mg PO DAILY 12/04/16 Irbesartan [Avapro] 150 mg PO DAILY 12/04/16 Montelukast Na [Singulair -] 10 mg PO HS 12/04/16 Pantoprazole Sodium [Protonix -] 20 mg PO DAILY 12/04/16 Review of Systems - Review of Systems Constitutional: reports: Lethargy Eyes: reports: No Symptoms HENT: reports: Difficult Swallowing, Throat Pain Neck: reports: No Symptoms Cardiovascular: reports: Shortness of Breath Respiratory: reports: Exercise Intolerance, SOB on Exertion Gastrointestinal: reports: Bloating, Constipation Genitourinary: reports: No Symptoms Breasts: reports: No Symptoms Reported Musculoskeletal: reports: Joint Swelling, Muscle Pain, Muscle Cramps, Muscle Weakness Neurological: reports: Confusion, Weakness Endocrine: reports: Unexplained Weight Gain Physical Exam Vital Signs: Vital Signs Temperature 97.3 F L 12/05/16 19:22 Pulse Rate 80 12/05/16 19:22 Respiratory Rate 18 12/05/16 19:22 Blood Pressure 118/59 12/05/16 19:22 O2 Sat by Pulse Oximetry (%) 100 12/05/16 09:00 Constitutional: Yes: Calm Eyes: Yes: EOM Intact HENT: Yes: Normocephalic Neck: Yes: Trachea Midline Cardiovascular: Yes: Regular Rate and Rhythm Respiratory: Yes: Rales, Tachypnea Gastrointestinal: Yes: Normal Bowel Sounds ...Rectal Exam: Yes: Deferred Renal/: Yes: WNL Edema: Yes Edema: LLE: 1+, RLE: 1+ Neurological: Yes: Numbness, Weakness Labs: CBC, BMP 12/05/16 11:20 12/05/16 11:20 Problem List - Problems (1) KEESHA (acute kidney injury) Code(s): N17.9 - ACUTE KIDNEY FAILURE, UNSPECIFIED (2) UTI (urinary tract infection) Code(s): N39.0 - URINARY TRACT INFECTION, SITE NOT SPECIFIED Qualifiers: Urinary tract infection type: site unspecified Hematuria presence: without hematuria Qualified Code(s): N39.0 - Urinary tract infection, site not specified (3) Diabetes Code(s): E11.9 - TYPE 2 DIABETES MELLITUS WITHOUT COMPLICATIONS (4) H/O: CVA (cerebrovascular accident) Code(s): Z86.73 - PRSNL HX OF TIA (TIA), AND CEREB INFRC W/O RESID DEFICITS (5) HTN (hypertension) Code(s): I10 - ESSENTIAL (PRIMARY) HYPERTENSION Assessment/Plan Current Active Problems KEESHA (acute kidney injury) (Acute) Sepsis (Acute) UTI (urinary tract infection) (Acute) diabetes mellitus uncontrolled hyperglycemia ckd/nephropathy hypertension Abnormal Lab Results 12/05/16 12/05/16 11:20 11:20 WBC 10.6 H D RBC 3.51 L Hgb 10.3 L Hct 31.0 L Neutrophils % 83.9 H Lymphocytes % 5.9 L Sodium 133 L BUN 52 H Creatinine 2.6 H Random Glucose 286 H D Alkaline Phosphatase 120 H Total Protein 6.2 L D Albumin 2.3 L D Laboratory Results - last 24 hr 12/05/16 12/05/16 12/05/16 06:10 11:20 11:20 WBC 10.6 H D RBC 3.51 L Hgb 10.3 L Hct 31.0 L MCV 88.3 MCHC 33.2 RDW 13.4 Plt Count 177 MPV 8.4 Neutrophils % 83.9 H Lymphocytes % 5.9 L Monocytes % 8.8 Eosinophils % 1.2 D Basophils % 0.2 Sodium 133 L Potassium 4.6 Chloride 100 Carbon Dioxide 21 Anion Gap 12 BUN 52 H Creatinine 2.6 H Creat Clearance w eGFR 18.25 POC Glucometer 310 Random Glucose 286 H D Calcium 9.2 Total Bilirubin 0.9 AST 34 D ALT 24 Alkaline Phosphatase 120 H Total Protein 6.2 L D Albumin 2.3 L D Ur Random Sodium Urine Creatinine 12/05/16 12/05/16 12/05/16 12:14 17:28 17:35 WBC RBC Hgb Hct MCV MCHC RDW Plt Count MPV Neutrophils % Lymphocytes % Monocytes % Eosinophils % Basophils % Sodium Potassium Chloride Carbon Dioxide Anion Gap BUN Creatinine Creat Clearance w eGFR POC Glucometer 244 204 Random Glucose Calcium Total Bilirubin AST ALT Alkaline Phosphatase Total Protein Albumin Ur Random Sodium 49 Urine Creatinine 12/05/16 12/05/16 17:35 22:02 WBC RBC Hgb Hct MCV MCHC RDW Plt Count MPV Neutrophils % Lymphocytes % Monocytes % Eosinophils % Basophils % Sodium Potassium Chloride Carbon Dioxide Anion Gap BUN Creatinine Creat Clearance w eGFR POC Glucometer 182 Random Glucose Calcium Total Bilirubin AST ALT Alkaline Phosphatase Total Protein Albumin Ur Random Sodium Urine Creatinine 95.2 plan: bgm achs novolog coverage levemir 20 units am /30 units hs check hba1c check tsh free t4
[2016-12-06] MEDS: CEFEPIME 1 GM/100 ML BAG PRE-DOCKED IVPB SCH ×3 (02:45→17:26)
[2016-12-06] MEDS: GABAPENTIN 400 MG CAPSULE (FP) PO SCH ×3 (06:24→23:11)
[2016-12-06] MEDS: glyBURIDE 5 MG TABLET (UD) PO SCH (06:24)
[2016-12-06] MEDS: INSULIN DETEMIR 100 UNITS/ML MDV SQ SCH ×2 (06:25→23:11)
[2016-12-06] MEDS: INSULIN SLIDING SCALE (NOVOLOG) 1 VIAL SQ SCH ×4 (06:25→23:12)
[2016-12-06 08:04] LABS: BASOPHIL 0.3 % (0-2.0); EOSINOPHIL 2.3 % (0-4.5); MCH 29.4 pg (25.7-33.7); MCHC 33.7 g/dl (32.0-36.0); MEAN CELL VOLUME 87.4 fl (80-96); MEAN PLT VOLUME 8.7 fl (7.5-11.1); NEUTROPHILS 72.2 % (42.8-82.8); PLATELET COUNT 204 K/MM3 (134-434); RDW 13.7 % (11.6-15.6); WHITE BLOOD COUNT 10.4 K/mm3 (4.0-10.0)
[2016-12-06 08:16] LABS: ALBUMIN 2.3 g/dl (3.4-5.0); CALCIUM 9.2 mg/dL (8.5-10.1); COCKROFT - GAULT 46.104; CREATININE 1.9 mg/dL (0.55-1.02)
[2016-12-06 08:18] LABS: BILIRUBIN,TOTAL 0.8 mg/dL (0.2-1.0); TOT PROT 6.2 g/dl (6.4-8.2)
[2016-12-06] MEDS: ACETAMINOPHEN 325 MG TABLET (FP) PO PRN (08:45)
[2016-12-06] MEDS ORDERED: PT OWN MED DRAWER 7, Y5N ONE (09:09)
[2016-12-06] MEDS: CITALOPRAM HYDROBROMIDE 10 MG TABLET (FP) PO SCH (09:19)
[2016-12-06] MEDS: CLOPIDOGREL BISULFATE 75 MG TABLET (FP) PO SCH (09:19)
[2016-12-06] MEDS: PANTOPRAZOLE 40 MG TABLET (FP) PO SCH (09:31)
[2016-12-06] MEDS ORDERED: morphine CARPU-JECT 2 MG/1 ML DISP.SYRIN IVPB ONE (13:00)
[2016-12-06] MEDS ORDERED: ONDANSETRON *ODT* 4 MG TABLET SL ONE (13:00)
[2016-12-06] MEDS ORDERED: LORazepam 0.5 MG TABLET PO ONE (13:00)
--- NOTE | 2016-12-06 13:10 | CON.GU ---
Consult Consult Specialty:: urology Referred by:: Gretchen Reason for Consultation:: urolithiasis/uti - History of Present Illness Chief Complaint: uti/urolithiasis History of Present Illness: patient with history of urolithiasis s/p lithotripsy s/p stent removal who presents with dysuria. Patient found to have a uti. Patient denies nausea, vomiting, renal colic, or gross hematuria. Patient is a poor historian. 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 Cardio/Vascular: Yes: HTN, Hyperlipdemia, Other (PPM) Endocrine: Yes: Diabetes Mellitus - Past Surgical History Past Surgical History: Yes: Permanent Pacemaker, Cholecystectomy - Alcohol/Substance Use Hx Alcohol Use: No - Smoking History Smoking history: Never smoked Have you smoked in the past 12 months: No Home Medications - Allergies Allergies/Adverse Reactions: Allergies Allergy/AdvReac Type Severity Reaction Status Date / Time aspirin Allergy Verified 12/04/16 13:04 - Home Medications Home Medications: Ambulatory Orders Acetaminophen [Tylenol Arthritis] 650 mg PO Q8H PRN 12/04/16 Albuterol Sulfate [Proair Respiclick] 90 mcg IH HS 12/04/16 Atorvastatin Calcium 40 mg PO HS 12/04/16 Citalopram Hydrobromide [Celexa -] 10 mg PO DAILY 12/04/16 Clopidogrel Bisulfate [Plavix -] 75 mg PO DAILY 12/04/16 Famotidine [Pepcid -] 40 mg PO TID 12/04/16 Fesoterodine Fumarate [Toviaz] 8 mg PO DAILY 12/04/16 Gabapentin 400 mg PO TID 12/04/16 Glyburide 6 mg PO BID 12/04/16 Insulin Glargine,Hum.rec.anlog [Lantus Solostar PEN (NF)] 30 units SQ HS Insulin Lispro [Humalog] 12 unit SQ TID 12/04/16 Irbesartan 150 mg PO DAILY 12/04/16 Irbesartan [Avapro] 150 mg PO DAILY 12/04/16 Montelukast Na [Singulair -] 10 mg PO HS 12/04/16 Pantoprazole Sodium [Protonix -] 20 mg PO DAILY 12/04/16 Physical Exam- Vital Signs: Vital Signs Temperature 100.8 F H 12/06/16 10:00 Pulse Rate 80 12/06/16 10:00 Respiratory Rate 18 12/06/16 10:00 Blood Pressure 129/55 12/06/16 10:00 O2 Sat by Pulse Oximetry (%) 98 12/06/16 09:00 Constitutional: Yes: Anxious Eyes: Yes: WNL, Conjunctiva Clear, EOM Intact HENT: Yes: WNL, Atraumatic, Normocephalic Neck: Yes: WNL, Supple, Trachea Midline Cardiovascular: Yes: Regular Rate and Rhythm Respiratory: Yes: Regular Gastrointestinal: Yes: Normal Bowel Sounds, Soft Renal/: Yes: WNL Kidneys: Yes: WNL Pelvis: Yes: Bladder Non Palpable External Genitalia: Yes: WNL Labs: CBC, BMP 12/06/16 06:00 12/06/16 06:00 Imaging - Results Cat Scan: Report Reviewed Ultrasound: Report Reviewed Assessment/Plan impression uti CRI urolithiasis plan continue cefepime observe renal function follow stone conservatively
[2016-12-06] MEDS: SODIUM CHLORIDE 1,000 ML IV SCH ×3 (13:20→23:47)
--- NOTE | 2016-12-06 14:49 | PN ---
Progress Note (short form) - Note Progress Note: ID Cefepime Selected Entries 12/06/16 10:00 Temperature 100.8 F H Respiratory 18 Rate Blood Pressure 129/55 Microbiology 12/04/16 14:38 Urine - Urine Clean Catch Urine Culture - Preliminary Lactose Fermenting Neg Bacilli Lactose Fermenting Neg Bacilli#2 Laboratory Tests 12/06/16 06:00 WBC 10.4 H Assessment UTI. GNB Plan Continue Cefepime 1 gr q8H Yas STANLEY
--- NOTE | 2016-12-06 15:51 | PN ---
Progress Note, Physician History of Present Illness: Pt seen and examined at bedside. She is a poor historian. She denies shortness of breath. - Current Medication List Current Medications: Active Medications Acetaminophen (Tylenol -) 650 mg PO Q6H PRN PRN Reason: FEVER OR PAIN Last Admin: 12/06/16 08:45 Dose: 650 mg Albuterol Sulfate (Ventolin Hfa Inhaler -) 2 puff IH Q4H PRN PRN Reason: SHORT OF BREATH/WHEEZING Atorvastatin Calcium (Lipitor -) 40 mg PO HS [facility] Last Admin: 12/05/16 21:52 Dose: 40 mg Cefepime HCl (Maxipime 1gm Ivpb Pre-Docked) 1 gm IVPB Q8H-IV [facility] PRN Reason: Protocol Last Admin: 12/06/16 09:20 Dose: 1 gm Citalopram Hydrobromide (Celexa -) 10 mg PO DAILY [facility] Last Admin: 12/06/16 09:19 Dose: 10 mg Clopidogrel Bisulfate (Plavix -) 75 mg PO DAILY [facility] Last Admin: 12/06/16 09:19 Dose: 75 mg Gabapentin (Neurontin -) 400 mg PO TID [facility] Last Admin: 12/06/16 13:20 Dose: 400 mg Glyburide (Diabeta -) 5 mg PO DAILY@0700 [facility] Last Admin: 12/06/16 06:24 Dose: 5 mg Sodium Chloride (Normal Saline -) 1,000 mls @ 75 mls/hr IV ASDIR [facility] Last Admin: 12/06/16 13:20 Dose: Not Given Insulin Aspart (Novolog Vial Sliding Scale -) 1 vial SQ ACHS [facility] PRN Reason: Protocol Last Admin: 12/06/16 12:05 Dose: 2 units Insulin Detemir (Levemir Vial) 30 units SQ HS [facility] Last Admin: 12/05/16 22:02 Dose: 30 units Insulin Detemir (Levemir Vial) 20 units SQ AM [facility] Last Admin: 12/06/16 06:25 Dose: 20 units Lorazepam (Ativan -) 0.5 mg PO TID PRN PRN Reason: ANXIETY Last Admin: 12/06/16 08:44 Dose: 0.5 mg Montelukast Sodium (Singulair -) 10 mg PO HS [facility] Last Admin: 12/05/16 21:52 Dose: 10 mg Pantoprazole Sodium (Protonix -) 40 mg PO DAILY [facility] Last Admin: 12/06/16 09:31 Dose: Not Given Sodium Chloride (Normal Saline -) 1,000 ml IV Q20M PRN PRN Reason: MAP<65mm Hg OR SBP <90 Last Admin: 12/04/16 18:35 Dose: 1,000 ml - Objective Vital Signs: Vital Signs Temperature 100.8 F H 12/06/16 10:00 Pulse Rate 80 12/06/16 10:00 Respiratory Rate 18 12/06/16 10:00 Blood Pressure 129/55 12/06/16 10:00 O2 Sat by Pulse Oximetry (%) 98 12/06/16 09:00 Constitutional: Yes: Anxious Eyes: Yes: Conjunctiva Clear HENT: Yes: Atraumatic Cardiovascular: Yes: S1, S2 Respiratory: Yes: CTA Bilaterally Gastrointestinal: Yes: Soft Genitourinary: Yes: WNL Musculoskeletal: Yes: WNL Edema: Yes Edema: LLE: Trace, RLE: Trace Neurological: Yes: Pre-Existing Deficit Psychiatric: Yes: Agitated Labs: CBC, BMP 12/06/16 06:00 12/06/16 06:00 INR, PTT INR 1.30 (0.82-1.09) H 12/04/16 14:38 - ....Imaging Ultrasound: Report Reviewed (right hydro with obstructing calculus) Problem List - Problems (1) KEESHA (acute kidney injury) Code(s): N17.9 - ACUTE KIDNEY FAILURE, UNSPECIFIED (2) Sepsis Code(s): A41.9 - SEPSIS, UNSPECIFIED ORGANISM Qualifiers: Sepsis type: sepsis due to unspecified organism Qualified Code(s): A41.9 - Sepsis, unspecified organism (3) UTI (urinary tract infection) Code(s): N39.0 - URINARY TRACT INFECTION, SITE NOT SPECIFIED Qualifiers: Urinary tract infection type: site unspecified Hematuria presence: without hematuria Qualified Code(s): N39.0 - Urinary tract infection, site not specified (4) Diabetes Code(s): E11.9 - TYPE 2 DIABETES MELLITUS WITHOUT COMPLICATIONS (5) HTN (hypertension) Code(s): I10 - ESSENTIAL (PRIMARY) HYPERTENSION (6) Pacemaker Code(s): Z95.0 - PRESENCE OF CARDIAC PACEMAKER (7) Renal calculus, right Code(s): N20.0 - CALCULUS OF KIDNEY (8) Urinary tract obstruction due to kidney stone Code(s): N20.0 - CALCULUS OF KIDNEY N13.8 - OTHER OBSTRUCTIVE AND REFLUX UROPATHY Assessment/Plan Current Medications Generic Name Dose Route Start Last Admin Trade Name Freq PRN Reason Stop Dose Admin Acetaminophen 650 mg 12/04/16 21:50 12/06/16 08:45 Tylenol - PO 650 mg Q6H PRN Administration FEVER OR PAIN Albuterol Sulfate 2 puff 12/04/16 21:50 Ventolin Hfa Inhaler - IH Q4H PRN SHORT OF BREATH/WHEEZING Atorvastatin Calcium 40 mg 12/04/16 22:00 12/05/16 21:52 Lipitor - PO 40 mg HS [facility]EL Administration Cefepime HCl 1 gm 12/05/16 14:15 12/06/16 09:20 Maxipime 1gm Ivpb Pre-Docked IVPB 1 gm Q8H-IV DANIEL Administration Protocol Citalopram Hydrobromide 10 mg 12/05/16 10:00 12/06/16 09:19 Celexa - PO 10 mg DAILY [facility] Administration Clopidogrel Bisulfate 75 mg 12/05/16 10:00 12/06/16 09:19 Plavix - PO 75 mg DAILY [facility] Administration Gabapentin 400 mg 12/04/16 22:00 12/06/16 13:20 Neurontin - PO 400 mg TID [facility] Administration Glyburide 5 mg 12/05/16 07:00 12/06/16 06:24 Diabeta - PO 5 mg DAILY@0700 [facility] Administration Sodium Chloride 1,000 mls @ 75 mls/hr 12/05/16 14:00 12/06/16 13:20 Normal Saline - IV Not Given ASDIR [facility]EL Insulin Aspart 1 vial 12/05/16 11:00 12/06/16 12:05 Novolog Vial Sliding Scale - SQ 2 units ACHS [facility] Administration Protocol Insulin Detemir 30 units 12/04/16 22:00 12/05/16 22:02 Levemir Vial SQ 30 units HS [facility] Administration Insulin Detemir 20 units 12/06/16 07:00 12/06/16 06:25 Levemir Vial SQ 20 units AM [facility] Administration Lorazepam 0.5 mg 12/04/16 21:53 12/06/16 08:44 Ativan - PO 0.5 mg TID PRN Administration ANXIETY Montelukast Sodium 10 mg 12/04/16 22:00 12/05/16 21:52 Singulair - PO 10 mg HS [facility] Administration Pantoprazole Sodium 40 mg 12/05/16 10:00 12/06/16 09:31 Protonix - PO Not Given DAILY [facility] Sodium Chloride 1,000 ml 12/04/16 13:34 12/04/16 18:35 Normal Saline - IV 1,000 ml Q20M PRN Administration MAP<65mm Hg OR SBP <90 Impression 1. KEESHA 2. sepsis 3. nephrolithiasis 4. hydronephrosis from calculus 5. Hyponatremia 6. HTN 7. UTI 8. S/P recent removal of a urinary stent for urolithiasis 9. Anemia 10. S/P CVA with left HP 11. S/P PPM Plan - renal function is improving - renal ultrasound reviewed and noted - urology input appreciated - cont with fluids - cont abx - repeat labs in am - will follow Dr Ribeiro
--- NOTE | 2016-12-06 16:15 | PN ---
Progress Note, Physician Chief Complaint: AWAKE, NO ANXIETY AT THIS MOMENT FAMILY BEDSIDE - Current Medication List Current Medications: Active Medications Acetaminophen (Tylenol -) 650 mg PO Q6H PRN PRN Reason: FEVER OR PAIN Last Admin: 12/06/16 08:45 Dose: 650 mg Albuterol Sulfate (Ventolin Hfa Inhaler -) 2 puff IH Q4H PRN PRN Reason: SHORT OF BREATH/WHEEZING Atorvastatin Calcium (Lipitor -) 40 mg PO HS [facility] Last Admin: 12/05/16 21:52 Dose: 40 mg Cefepime HCl (Maxipime 1gm Ivpb Pre-Docked) 1 gm IVPB Q8H-IV DANIEL PRN Reason: Protocol Last Admin: 12/06/16 09:20 Dose: 1 gm Citalopram Hydrobromide (Celexa -) 10 mg PO DAILY [facility] Last Admin: 12/06/16 09:19 Dose: 10 mg Clopidogrel Bisulfate (Plavix -) 75 mg PO DAILY [facility] Last Admin: 12/06/16 09:19 Dose: 75 mg Gabapentin (Neurontin -) 400 mg PO TID [facility] Last Admin: 12/06/16 13:20 Dose: 400 mg Glyburide (Diabeta -) 5 mg PO DAILY@0700 [facility] Last Admin: 12/06/16 06:24 Dose: 5 mg Sodium Chloride (Normal Saline -) 1,000 mls @ 75 mls/hr IV ASDIR [facility] Last Admin: 12/06/16 13:20 Dose: Not Given Insulin Aspart (Novolog Vial Sliding Scale -) 1 vial SQ ACHS [facility] PRN Reason: Protocol Last Admin: 12/06/16 12:05 Dose: 2 units Insulin Detemir (Levemir Vial) 30 units SQ HS [facility] Last Admin: 12/05/16 22:02 Dose: 30 units Insulin Detemir (Levemir Vial) 20 units SQ AM [facility] Last Admin: 12/06/16 06:25 Dose: 20 units Lorazepam (Ativan -) 0.5 mg PO TID PRN PRN Reason: ANXIETY Last Admin: 12/06/16 08:44 Dose: 0.5 mg Montelukast Sodium (Singulair -) 10 mg PO HS [facility] Last Admin: 12/05/16 21:52 Dose: 10 mg Pantoprazole Sodium (Protonix -) 40 mg PO DAILY [facility] Last Admin: 12/06/16 09:31 Dose: Not Given Sodium Chloride (Normal Saline -) 1,000 ml IV Q20M PRN PRN Reason: MAP<65mm Hg OR SBP <90 Last Admin: 12/04/16 18:35 Dose: 1,000 ml - Objective Vital Signs: Vital Signs Temperature 100.8 F H 12/06/16 10:00 Pulse Rate 80 12/06/16 10:00 Respiratory Rate 18 12/06/16 10:00 Blood Pressure 129/55 12/06/16 10:00 O2 Sat by Pulse Oximetry (%) 98 12/06/16 09:00 Constitutional: Yes: No Distress Eyes: Yes: WNL HENT: Yes: WNL Neck: Yes: WNL Cardiovascular: Yes: WNL Respiratory: Yes: WNL Gastrointestinal: Yes: WNL Genitourinary: Yes: WNL, Incontinence Musculoskeletal: Yes: Muscle Weakness Extremities: Yes: WNL Edema: Yes Edema: LLE: 1+, RLE: 1+ Peripheral Pulses WNL: Yes Integumentary: Yes: WNL Wound/Incision: Yes: Clean/Dry Neurological: Yes: Pre-Existing Deficit, Unsteady Gait, Weakness ...Motor Strength: LUE, LLE Psychiatric: Yes: Other Labs: CBC, BMP 12/06/16 06:00 12/06/16 06:00 INR, PTT INR 1.30 (0.82-1.09) H 12/04/16 14:38 Problem List - Problems (1) KEESHA (acute kidney injury) Code(s): N17.9 - ACUTE KIDNEY FAILURE, UNSPECIFIED (2) Sepsis Code(s): A41.9 - SEPSIS, UNSPECIFIED ORGANISM Qualifiers: Sepsis type: sepsis due to unspecified organism Qualified Code(s): A41.9 - Sepsis, unspecified organism (3) UTI (urinary tract infection) Code(s): N39.0 - URINARY TRACT INFECTION, SITE NOT SPECIFIED Qualifiers: Urinary tract infection type: site unspecified Hematuria presence: without hematuria Qualified Code(s): N39.0 - Urinary tract infection, site not specified (4) Diabetes Code(s): E11.9 - TYPE 2 DIABETES MELLITUS WITHOUT COMPLICATIONS Qualifiers: Diabetes mellitus type: type 2 Diabetes mellitus complication status: with unspecified complications (5) H/O: CVA (cerebrovascular accident) Code(s): Z86.73 - PRSNL HX OF TIA (TIA), AND CEREB INFRC W/O RESID DEFICITS (6) HTN (hypertension) Code(s): I10 - ESSENTIAL (PRIMARY) HYPERTENSION Qualifiers: Hypertension type: essential hypertension Qualified Code(s): I10 - Essential (primary) hypertension (7) Intractable abdominal pain Code(s): R10.9 - UNSPECIFIED ABDOMINAL PAIN (8) Anxiety Code(s): F41.9 - ANXIETY DISORDER, UNSPECIFIED Assessment/Plan IV ABX ORAL HYDRATION RENAL FUNCTION SLOWLY IMPROVING FALL PRECAUTIONS PSYCHIATRY EVAL FOR ANXIETY APPARANTLY TREATED IN [place] IN PAST ONLY ON CELEXA OUTPATIENT
--- NOTE | 2016-12-06 18:19 | CON.PSY ---
Psychiatry Consult Chief Complaint: agitation at night Symptoms: reports: Irritability, Impulsivity - Previous Psychiatric Treatment Outpatient: Less than 6 mos ago Inpatient: None - Previous Substance Abuse Treatment Outpatient: None Inpatient: None - Reason for Previous Treatment Reason for Previous Treatment: Major Depression - Current Medications Current Medications: Active Medications Acetaminophen (Tylenol -) 650 mg PO Q6H PRN PRN Reason: FEVER OR PAIN Last Admin: 12/06/16 08:45 Dose: 650 mg Albuterol Sulfate (Ventolin Hfa Inhaler -) 2 puff IH Q4H PRN PRN Reason: SHORT OF BREATH/WHEEZING Atorvastatin Calcium (Lipitor -) 40 mg PO HS [facility] Last Admin: 12/05/16 21:52 Dose: 40 mg Cefepime HCl (Maxipime 1gm Ivpb Pre-Docked) 1 gm IVPB Q8H-IV [facility] PRN Reason: Protocol Last Admin: 12/06/16 17:26 Dose: 1 gm Citalopram Hydrobromide (Celexa -) 10 mg PO DAILY [facility] Last Admin: 12/06/16 09:19 Dose: 10 mg Clopidogrel Bisulfate (Plavix -) 75 mg PO DAILY [facility] Last Admin: 12/06/16 09:19 Dose: 75 mg Gabapentin (Neurontin -) 400 mg PO TID [facility] Last Admin: 12/06/16 13:20 Dose: 400 mg Glyburide (Diabeta -) 5 mg PO DAILY@0700 [facility] Last Admin: 12/06/16 06:24 Dose: 5 mg Sodium Chloride (Normal Saline -) 1,000 mls @ 75 mls/hr IV ASDIR [facility] Last Admin: 12/06/16 17:26 Dose: 75 mls/hr Insulin Aspart (Novolog Vial Sliding Scale -) 1 vial SQ ACHS [facility] PRN Reason: Protocol Last Admin: 12/06/16 17:23 Dose: Not Given Insulin Detemir (Levemir Vial) 30 units SQ HS [facility] Last Admin: 12/05/16 22:02 Dose: 30 units Insulin Detemir (Levemir Vial) 20 units SQ AM [facility] Last Admin: 12/06/16 06:25 Dose: 20 units Lorazepam (Ativan -) 0.5 mg PO TID PRN PRN Reason: ANXIETY Last Admin: 12/06/16 08:44 Dose: 0.5 mg Montelukast Sodium (Singulair -) 10 mg PO [facility] Last Admin: 12/05/16 21:52 Dose: 10 mg Pantoprazole Sodium (Protonix -) 40 mg PO DAILY [facility] Last Admin: 12/06/16 09:31 Dose: Not Given Quetiapine Fumarate (Seroquel -) 25 mg PO [facility] Sodium Chloride (Normal Saline -) 1,000 ml IV Q20M PRN PRN Reason: MAP<65mm Hg OR SBP <90 Last Admin: 12/04/16 18:35 Dose: 1,000 ml - Allergies Allergies: Allergies Allergy/AdvReac Type Severity Reaction Status Date / Time aspirin Allergy Verified 12/04/16 13:04 - Current Living Status Usual Living Arrangement: With Significant Other - Current Mental Status Evaluation Appearance: Disheveled Attitude: Uncooperative - Affect Affect: Constrictive - Mood Mood: Irritable - Speech/Language Expressive: Delayed - Psychomotor Activity Psychomotor Activity: Normal - Thought Process Thought Process: Circumstantial - Thought Content Hallucinations: Absent Delusions: Absent - Self Perception Self Perception: Depersonalization - Cognition Attention: Alert Memory, Short Term: 2/3 Memory, Remote with Promptin/3 - Concentration Serial Sevens Intact: No Simple Calculations Intact: No - Abstraction Proverb Interpretation: Impaired - Impulse Control Impulse Control: Minimally Impaired - Suicidal Ideation Suicidal Ideation: No - Homicidal Ideation Homicidal Ideation: No Assessment/Plan Add Seroquel 25mg po hs.
--- NOTE | 2016-12-06 19:55 | CONSULT ---
Consult - text type - Consultation Consultation Note: NEUROLOGY CONSULTATION is greatly appreciated: This 71 yo woman with h/o HTN, DM, Chol, GERD, ASHD, s/p PPP, COPD/Asthma, nephrolithiasis is maintained on: Insulin, albuteral, singulair, atorvastatin, citalopram, clopidogrel, pantoprazole, Toviaz, glyburide, and gabapentin. Recently s/p removal of ureteral stent. Admitted 6/ with increasing weakness, confusion, and fever. Found to have Klebsiella UTI. Urine BMD=7158. Glu> 300 mg%. Now on cefepime. CT of head (reviewed): Moderate atrophy, diffuse, scattered microvasular changes , old Right internal capsule lacune with encephalomalacia. URSULA: Obese, neck supple, No bruits. S/P PPM. No skin breakdown. NEURO: Awake, dysarthric. Slow to respond. [place] only. [facility]. No month,. No year. CN II-XII: reduced blink to threat B/L. Mild L facial. Decreased gag. Motor: Moves Right arm with min cogwheel rigidity. Left hemiparesis. No leg mov'ts. Areflexic. Plantars silent. Sensory: Withdraws Right arm only to pinch. IMP: 1. Moderately severe B/L cerebral dysfunction (OMS, Chronic?) possibly on a microvascular basis. 2. 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 3. Possible Paraplegia of unknown etiology. 4. All would worsen with Toxic-metabolic encephalopathy (Urosepsis). SUGGEST: Continue antibiotics and hydration. Check B12 level. MRI of brain and cervical spine (both C-) If legs remain paretic, may also need thoracic MRI. Check baseline functional status (and h/o old CVA). PM&R consultation and bedside PT as directed. DVT prophylaxis. Thank you very much, Oneil Connors MD
--- NOTE | 2016-12-06 20:12 | PN ---
Progress Note (short form) - Note Progress Note: NEUROLOGY ADDENDUM: Pt is s/p PPM. Obviously cannot have MRI scans. I have ordered repeat CT of head and CT scans of Cervical and thoracic spines. Thank you, Oneil Connors MD
[2016-12-06] MEDS: ATORVASTATIN CA 40 MG TABLET (FP) PO SCH (23:11)
[2016-12-06] MEDS: MONTELUKAST NA 10 MG TABLET PO SCH (23:11)
[2016-12-06] MEDS: QUEtiapine FUMARATE 25 MG TABLET (FP) PO SCH (23:13)
[2016-12-07] MEDS: CEFEPIME 1 GM/100 ML BAG PRE-DOCKED IVPB SCH ×2 (01:39→09:21)
[2016-12-07] MEDS: GABAPENTIN 400 MG CAPSULE (FP) PO SCH ×3 (05:49→21:27)
[2016-12-07 05:56] VITALS: PULSE 80
[2016-12-07] MEDS: INSULIN DETEMIR 100 UNITS/ML MDV SQ SCH ×2 (06:30→21:30)
[2016-12-07] MEDS ORDERED: PT OWN MED DRAWER 7, Y5N ONE ×2 (06:32→09:19)
[2016-12-07] MEDS: INSULIN SLIDING SCALE (NOVOLOG) 1 VIAL SQ SCH ×4 (06:32→21:32)
[2016-12-07] MEDS: glyBURIDE 5 MG TABLET (UD) PO SCH (06:32)
[2016-12-07 07:50] LABS: CALCIUM 9.3 mg/dL (8.5-10.1); COCKROFT - GAULT 54.7485; CREATININE 1.6 mg/dL (0.55-1.02)
[2016-12-07 08:00] LABS: FREE T4 1.27 ng/dl (0.76-1.46); THYROID STIMULATING HORMONE 2.27 uIU/ml (0.358-3.74)
[2016-12-07] MEDS: CLOPIDOGREL BISULFATE 75 MG TABLET (FP) PO SCH (09:21)
[2016-12-07] MEDS: CITALOPRAM HYDROBROMIDE 10 MG TABLET (FP) PO SCH (09:21)
[2016-12-07] MEDS: PANTOPRAZOLE 40 MG TABLET (FP) PO SCH (09:22)
[2016-12-07] MEDS: ACETAMINOPHEN 325 MG TABLET (FP) PO PRN (12:20)
[2016-12-07] MEDS: SODIUM CHLORIDE 1,000 ML IV SCH ×2 (12:21→14:40)
--- NOTE | 2016-12-07 12:22 | PN ---
Progress Note, Physician History of Present Illness: Awake, alert C/O discomfort at R neck CVP site Temps down- low grade WBC improved Renal function improved BC (-) Urine c/s klebsiella, E coli - Current Medication List Current Medications: Active Medications Acetaminophen (Tylenol -) 650 mg PO Q6H PRN PRN Reason: FEVER OR PAIN Last Admin: 12/06/16 08:45 Dose: 650 mg Albuterol Sulfate (Ventolin Hfa Inhaler -) 2 puff IH Q4H PRN PRN Reason: SHORT OF BREATH/WHEEZING Atorvastatin Calcium (Lipitor -) 40 mg PO HS [facility] Last Admin: 12/06/16 23:11 Dose: 40 mg Cefepime HCl (Maxipime 1gm Ivpb Pre-Docked) 1 gm IVPB Q8H-IV [facility] PRN Reason: Protocol Last Admin: 12/07/16 09:21 Dose: 1 gm Citalopram Hydrobromide (Celexa -) 10 mg PO DAILY [facility] Last Admin: 12/07/16 09:21 Dose: 10 mg Clopidogrel Bisulfate (Plavix -) 75 mg PO DAILY [facility] Last Admin: 12/07/16 09:21 Dose: 75 mg Gabapentin (Neurontin -) 400 mg PO TID [facility] Last Admin: 12/07/16 05:49 Dose: 400 mg Glyburide (Diabeta -) 5 mg PO DAILY@0700 [facility] Last Admin: 12/07/16 06:32 Dose: 5 mg Sodium Chloride (Normal Saline -) 1,000 mls @ 75 mls/hr IV ASDIR [facility] Last Admin: 12/06/16 23:47 Dose: 75 mls/hr Insulin Aspart (Novolog Vial Sliding Scale -) 1 vial SQ ACHS [facility] PRN Reason: Protocol Last Admin: 12/07/16 11:50 Dose: Not Given Insulin Detemir (Levemir Vial) 30 units SQ HS [facility] Last Admin: 12/06/16 23:11 Dose: 30 units Insulin Detemir (Levemir Vial) 20 units SQ AM [facility] Last Admin: 12/07/16 06:30 Dose: 20 units Lorazepam (Ativan -) 0.5 mg PO TID PRN PRN Reason: ANXIETY Last Admin: 12/06/16 08:44 Dose: 0.5 mg Montelukast Sodium (Singulair -) 10 mg PO [facility] Last Admin: 12/06/16 23:11 Dose: 10 mg Pantoprazole Sodium (Protonix -) 40 mg PO DAILY [facility] Last Admin: 12/07/16 09:22 Dose: 40 mg Quetiapine Fumarate (Seroquel -) 25 mg PO HS [facility] Last Admin: 12/06/16 23:13 Dose: 25 mg Sodium Chloride (Normal Saline -) 1,000 ml IV Q20M PRN PRN Reason: MAP<65mm Hg OR SBP <90 Last Admin: 12/04/16 18:35 Dose: 1,000 ml - Objective Vital Signs: Vital Signs Temperature 99.6 F 12/07/16 09:17 Pulse Rate 80 12/07/16 09:17 Respiratory Rate 20 12/07/16 09:17 Blood Pressure 114/48 12/07/16 09:17 O2 Sat by Pulse Oximetry (%) 98 12/06/16 21:00 Constitutional: Yes: No Distress Eyes: Yes: Conjunctiva Clear Cardiovascular: Yes: Regular Rate and Rhythm, S1, S2 Respiratory: Yes: CTA Bilaterally Gastrointestinal: Yes: Normal Bowel Sounds, Soft, Abdomen, Obese. No: Tenderness Edema: Yes Edema: LUE: 1+, RUE: 1+, LLE: 1+, RLE: 1+ Neurological: Yes: Other (L hemiparesis) Labs: CBC, BMP 12/06/16 06:00 12/07/16 06:45 INR, PTT INR 1.30 (0.82-1.09) H 12/04/16 14:38 Assessment/Plan UTI/ Sepsis secondary to UTI Fever/ leukocytosis- improved Azotemia- improved Lactic acidosis- resolved Substitute po keflex 500mg bid x 7d
--- NOTE | 2016-12-07 14:33 | PN ---
Progress Note, Physician History of Present Illness: Pt seen and examined at bedside. She is awake and appears comfortable. Family are at bedside. - Current Medication List Current Medications: Active Medications Acetaminophen (Tylenol -) 650 mg PO Q6H PRN PRN Reason: FEVER OR PAIN Last Admin: 12/07/16 12:20 Dose: 650 mg Albuterol Sulfate (Ventolin Hfa Inhaler -) 2 puff IH Q4H PRN PRN Reason: SHORT OF BREATH/WHEEZING Atorvastatin Calcium (Lipitor -) 40 mg PO HS [facility] Last Admin: 12/06/16 23:11 Dose: 40 mg Cephalexin HCl (Keflex -) 500 mg PO BID [facility] Citalopram Hydrobromide (Celexa -) 10 mg PO DAILY [facility] Last Admin: 12/07/16 09:21 Dose: 10 mg Clopidogrel Bisulfate (Plavix -) 75 mg PO DAILY [facility] Last Admin: 12/07/16 09:21 Dose: 75 mg Gabapentin (Neurontin -) 400 mg PO TID [facility] Last Admin: 12/07/16 05:49 Dose: 400 mg Glyburide (Diabeta -) 5 mg PO DAILY@0700 [facility] Last Admin: 12/07/16 06:32 Dose: 5 mg Sodium Chloride (Normal Saline -) 1,000 mls @ 75 mls/hr IV ASDIR [facility] Last Admin: 12/07/16 12:21 Dose: 75 mls/hr Insulin Aspart (Novolog Vial Sliding Scale -) 1 vial SQ ACHS [facility] PRN Reason: Protocol Last Admin: 12/07/16 11:50 Dose: Not Given Insulin Detemir (Levemir Vial) 30 units SQ HS [facility] Last Admin: 12/06/16 23:11 Dose: 30 units Insulin Detemir (Levemir Vial) 20 units SQ AM [facility] Last Admin: 12/07/16 06:30 Dose: 20 units Lorazepam (Ativan -) 0.5 mg PO TID PRN PRN Reason: ANXIETY Last Admin: 12/06/16 08:44 Dose: 0.5 mg Montelukast Sodium (Singulair -) 10 mg PO HS [facility] Last Admin: 12/06/16 23:11 Dose: 10 mg Pantoprazole Sodium (Protonix -) 40 mg PO DAILY [facility] Last Admin: 12/07/16 09:22 Dose: 40 mg Quetiapine Fumarate (Seroquel -) 25 mg PO HS [facility] Last Admin: 12/06/16 23:13 Dose: 25 mg Sodium Chloride (Normal Saline -) 1,000 ml IV Q20M PRN PRN Reason: MAP<65mm Hg OR SBP <90 Last Admin: 12/04/16 18:35 Dose: 1,000 ml - Objective Vital Signs: Vital Signs Temperature 99.6 F 12/07/16 09:17 Pulse Rate 80 12/07/16 09:17 Respiratory Rate 20 12/07/16 09:17 Blood Pressure 114/48 12/07/16 09:17 O2 Sat by Pulse Oximetry (%) 98 12/07/16 09:00 Constitutional: Yes: Calm Eyes: Yes: Conjunctiva Clear HENT: Yes: Atraumatic Neck: Yes: Supple Cardiovascular: Yes: S1, S2 Respiratory: Yes: CTA Bilaterally Gastrointestinal: Yes: Normal Bowel Sounds, Soft, Abdomen, Obese Genitourinary: Yes: Incontinence Edema: No Neurological: Yes: Pre-Existing Deficit Labs: CBC, BMP 12/06/16 06:00 12/07/16 06:45 INR, PTT INR 1.30 (0.82-1.09) H 12/04/16 14:38 Problem List - Problems (1) KEESHA (acute kidney injury) Code(s): N17.9 - ACUTE KIDNEY FAILURE, UNSPECIFIED (2) Sepsis Code(s): A41.9 - SEPSIS, UNSPECIFIED ORGANISM Qualifiers: Sepsis type: sepsis due to unspecified organism Qualified Code(s): A41.9 - Sepsis, unspecified organism (3) UTI (urinary tract infection) Code(s): N39.0 - URINARY TRACT INFECTION, SITE NOT SPECIFIED Qualifiers: Urinary tract infection type: site unspecified Hematuria presence: without hematuria Qualified Code(s): N39.0 - Urinary tract infection, site not specified (4) Diabetes Code(s): E11.9 - TYPE 2 DIABETES MELLITUS WITHOUT COMPLICATIONS Qualifiers: Diabetes mellitus type: type 2 Diabetes mellitus complication status: with unspecified complications (5) HTN (hypertension) Code(s): I10 - ESSENTIAL (PRIMARY) HYPERTENSION Qualifiers: Hypertension type: essential hypertension Qualified Code(s): I10 - Essential (primary) hypertension (6) Pacemaker Code(s): Z95.0 - PRESENCE OF CARDIAC PACEMAKER (7) Renal calculus, right Code(s): N20.0 - CALCULUS OF KIDNEY (8) Urinary tract obstruction due to kidney stone Code(s): N20.0 - CALCULUS OF KIDNEY N13.8 - OTHER OBSTRUCTIVE AND REFLUX UROPATHY Assessment/Plan Current Medications Generic Name Dose Route Start Last Admin Trade Name Freq PRN Reason Stop Dose Admin Acetaminophen 650 mg 12/04/16 21:50 12/07/16 12:20 Tylenol - PO 650 mg Q6H PRN Administration FEVER OR PAIN Albuterol Sulfate 2 puff 12/04/16 21:50 Ventolin Hfa Inhaler - IH Q4H PRN SHORT OF BREATH/WHEEZING Atorvastatin Calcium 40 mg 12/04/16 22:00 12/06/16 23:11 Lipitor - PO 40 mg HS [facility] Administration Cephalexin HCl 500 mg 12/07/16 12:30 Keflex - PO BID [facility] Citalopram Hydrobromide 10 mg 12/05/16 10:00 12/07/16 09:21 Celexa - PO 10 mg DAILY [facility] Administration Clopidogrel Bisulfate 75 mg 12/05/16 10:00 12/07/16 09:21 Plavix - PO 75 mg DAILY [facility] Administration Gabapentin 400 mg 12/04/16 22:00 12/07/16 05:49 Neurontin - PO 400 mg TID [facility] Administration Glyburide 5 mg 12/05/16 07:00 12/07/16 06:32 Diabeta - PO 5 mg DAILY@0700 [facility] Administration Sodium Chloride 1,000 mls @ 75 mls/hr 12/05/16 14:00 12/07/16 12:21 Normal Saline - IV 75 mls/hr ASDIR [facility] Administration Insulin Aspart 1 vial 12/05/16 11:00 12/07/16 11:50 Novolog Vial Sliding Scale - SQ Not Given ACHS [facility] Protocol Insulin Detemir 30 units 12/04/16 22:00 12/06/16 23:11 Levemir Vial SQ 30 units HS [facility] Administration Insulin Detemir 20 units 12/06/16 07:00 12/07/16 06:30 Levemir Vial SQ 20 units AM [facility] Administration Lorazepam 0.5 mg 12/04/16 21:53 12/06/16 08:44 Ativan - PO 0.5 mg TID PRN Administration ANXIETY Montelukast Sodium 10 mg 12/04/16 22:00 12/06/16 23:11 Singulair - PO 10 mg HS [facility] Administration Pantoprazole Sodium 40 mg 12/05/16 10:00 12/07/16 09:22 Protonix - PO 40 mg DAILY [facility] Administration Quetiapine Fumarate 25 mg 12/06/16 22:00 12/06/16 23:13 Seroquel - PO 25 mg HS [facility] Administration Sodium Chloride 1,000 ml 12/04/16 13:34 12/04/16 18:35 Normal Saline - IV 1,000 ml Q20M PRN Administration MAP<65mm Hg OR SBP <90 Impression 1. KEESHA 2. sepsis 3. nephrolithiasis 4. hydronephrosis from calculus 5. Hyponatremia 6. HTN 7. UTI 8. S/P recent removal of a urinary stent for urolithiasis 9. Anemia 10. S/P CVA with left HP 11. S/P PPM Plan - will decrease rate of fluids - pt is tolerating diet - renal function is improving, will continue to monitor - discussed with pt's family - cont abx - repeat labs in am - will follow Dr Ribeiro
[2016-12-07] MEDS ORDERED: SODIUM CHLORIDE 1,000 ML IV SCH (14:34)
[2016-12-07] MEDS: CEPHALEXIN MONOHYDRATE 500 MG CAPSULE (UD) PO SCH ×2 (14:41→21:28)
--- NOTE | 2016-12-07 15:16 | PN ---
Progress Note, Physician Chief Complaint: AWAKE ALERT FAMILY BEDSIDE - Current Medication List Current Medications: Active Medications Acetaminophen (Tylenol -) 650 mg PO Q6H PRN PRN Reason: FEVER OR PAIN Last Admin: 12/07/16 12:20 Dose: 650 mg Albuterol Sulfate (Ventolin Hfa Inhaler -) 2 puff IH Q4H PRN PRN Reason: SHORT OF BREATH/WHEEZING Atorvastatin Calcium (Lipitor -) 40 mg PO HS [facility] Last Admin: 12/06/16 23:11 Dose: 40 mg Cephalexin HCl (Keflex -) 500 mg PO BID [facility] Last Admin: 12/07/16 14:41 Dose: 500 mg Citalopram Hydrobromide (Celexa -) 10 mg PO DAILY [facility] Last Admin: 12/07/16 09:21 Dose: 10 mg Clopidogrel Bisulfate (Plavix -) 75 mg PO DAILY [facility] Last Admin: 12/07/16 09:21 Dose: 75 mg Gabapentin (Neurontin -) 400 mg PO TID [facility] Last Admin: 12/07/16 14:41 Dose: 400 mg Glyburide (Diabeta -) 5 mg PO DAILY@0700 [facility] Last Admin: 12/07/16 06:32 Dose: 5 mg Sodium Chloride (Normal Saline -) 1,000 mls @ 42 mls/hr IV ASDIR [facility] Last Admin: 12/07/16 14:41 Dose: 42 mls/hr Insulin Aspart (Novolog Vial Sliding Scale -) 1 vial SQ ACHS [facility] PRN Reason: Protocol Last Admin: 12/07/16 11:50 Dose: Not Given Insulin Detemir (Levemir Vial) 30 units SQ HS [facility] Last Admin: 12/06/16 23:11 Dose: 30 units Insulin Detemir (Levemir Vial) 20 units SQ AM [facility] Last Admin: 12/07/16 06:30 Dose: 20 units Lorazepam (Ativan -) 0.5 mg PO TID PRN PRN Reason: ANXIETY Last Admin: 12/06/16 08:44 Dose: 0.5 mg Montelukast Sodium (Singulair -) 10 mg PO HS [facility] Last Admin: 12/06/16 23:11 Dose: 10 mg Pantoprazole Sodium (Protonix -) 40 mg PO DAILY [facility] Last Admin: 12/07/16 09:22 Dose: 40 mg Quetiapine Fumarate (Seroquel -) 25 mg PO HS [facility] Last Admin: 12/06/16 23:13 Dose: 25 mg Sodium Chloride (Normal Saline -) 1,000 ml IV Q20M PRN PRN Reason: MAP<65mm Hg OR SBP <90 Last Admin: 12/04/16 18:35 Dose: 1,000 ml - Objective Vital Signs: Vital Signs Temperature 99.6 F 12/07/16 09:17 Pulse Rate 80 12/07/16 09:17 Respiratory Rate 20 12/07/16 09:17 Blood Pressure 114/48 12/07/16 09:17 O2 Sat by Pulse Oximetry (%) 98 12/07/16 09:00 Constitutional: Yes: No Distress Eyes: Yes: WNL HENT: Yes: WNL Neck: Yes: WNL Cardiovascular: Yes: WNL Respiratory: Yes: WNL Gastrointestinal: Yes: WNL Genitourinary: Yes: Incontinence Musculoskeletal: Yes: Muscle Weakness Edema: Yes Edema: LLE: 1+, RLE: 1+ Peripheral Pulses WNL: Yes Integumentary: Yes: WNL Wound/Incision: Yes: Clean/Dry Neurological: Yes: Confusion, Pre-Existing Deficit, Unsteady Gait ...Motor Strength: LUE, LLE Psychiatric: Yes: Other Labs: CBC, BMP 12/06/16 06:00 12/07/16 06:45 INR, PTT INR 1.30 (0.82-1.09) H 12/04/16 14:38 Problem List - Problems (1) KEESHA (acute kidney injury) Code(s): N17.9 - ACUTE KIDNEY FAILURE, UNSPECIFIED (2) Sepsis Code(s): A41.9 - SEPSIS, UNSPECIFIED ORGANISM Qualifiers: Sepsis type: sepsis due to unspecified organism Qualified Code(s): A41.9 - Sepsis, unspecified organism (3) UTI (urinary tract infection) Code(s): N39.0 - URINARY TRACT INFECTION, SITE NOT SPECIFIED Qualifiers: Urinary tract infection type: site unspecified Hematuria presence: without hematuria Qualified Code(s): N39.0 - Urinary tract infection, site not specified (4) Diabetes Code(s): E11.9 - TYPE 2 DIABETES MELLITUS WITHOUT COMPLICATIONS Qualifiers: Diabetes mellitus type: type 2 Diabetes mellitus complication status: with unspecified complications (5) H/O: CVA (cerebrovascular accident) Code(s): Z86.73 - PRSNL HX OF TIA (TIA), AND CEREB INFRC W/O RESID DEFICITS (6) HTN (hypertension) Code(s): I10 - ESSENTIAL (PRIMARY) HYPERTENSION Qualifiers: Hypertension type: essential hypertension Qualified Code(s): I10 - Essential (primary) hypertension (7) Intractable abdominal pain Code(s): R10.9 - UNSPECIFIED ABDOMINAL PAIN (8) Anxiety Code(s): F41.9 - ANXIETY DISORDER, UNSPECIFIED Assessment/Plan [facility] SLEEP LABS REVIEWED CREATANINE 1.6,FOLLOW LEVEL IN AM OOB TO CHAIR PT EVAL PSYCHIATRY EVAL APPRECIATED RENAL F/U OUT PATIENT HOME HEALTH AID
[2016-12-07] MEDS: ATORVASTATIN CA 40 MG TABLET (FP) PO SCH (21:27)
[2016-12-07] MEDS: MONTELUKAST NA 10 MG TABLET PO SCH (21:27)
[2016-12-07] MEDS: QUEtiapine FUMARATE 25 MG TABLET (FP) PO SCH (21:27)
[2016-12-08] MEDS ORDERED: PT OWN MED DRAWER 7, Y5N ONE ×2 (06:18→09:22)
[2016-12-08] MEDS: GABAPENTIN 400 MG CAPSULE (FP) PO SCH (06:19)
[2016-12-08] MEDS: glyBURIDE 5 MG TABLET (UD) PO SCH (06:19)
[2016-12-08] MEDS: INSULIN DETEMIR 100 UNITS/ML MDV SQ SCH (06:19)
[2016-12-08] MEDS: INSULIN SLIDING SCALE (NOVOLOG) 1 VIAL SQ SCH (06:20)
--- NOTE | 2016-12-08 07:35 | DS ---
Physical Examination Vital Signs: Vital Signs Temperature 98 F 12/08/16 06:24 Pulse Rate 80 12/08/16 06:24 Respiratory Rate 20 12/08/16 06:24 Blood Pressure 122/56 12/08/16 06:24 O2 Sat by Pulse Oximetry (%) 98 12/07/16 21:00 Constitutional: Yes: No Distress Eyes: Yes: WNL HENT: Yes: WNL Neck: Yes: WNL Cardiovascular: Yes: WNL Respiratory: Yes: WNL Gastrointestinal: Yes: WNL Renal/: Yes: WNL Musculoskeletal: Yes: Muscle Weakness Extremities: Yes: WNL Edema: No Peripheral Pulses WNL: Yes Integumentary: Yes: WNL Wound/Incision: Yes: Clean/Dry Neurological: Yes: Pre-Existing Deficit, Weakness ...Motor Strength: LUE, LLE Psychiatric: Yes: WNL Labs: CBC, BMP 12/06/16 06:00 12/07/16 06:45 Discharge Summary Reason For Visit: KEESHA, UTI, SEPSIS Current Active Problems KEESHA (acute kidney injury) (Acute) Anxiety (Acute) Sepsis (Acute) UTI (urinary tract infection) (Acute) Procedures: Principal: labs/cx Hospital Course: admitted with metabolic encephalopathy with acute uti, and acute renal failure. treated with iv abx and worked up, dc home and f/u outpatient in 1 week Condition: Improved - Instructions Diet, Activity, Other Instructions: see dr bazzi in 1 week for labs work ada/low sodium Referrals: Ayleen Bazzi MD [Primary Care Provider] - Disposition: VNS/HOME HEALTH CARE - Home Medications Comprehensive Discharge Medication List: Ambulatory Orders Acetaminophen [Tylenol Arthritis] 650 mg PO Q8H PRN 12/04/16 Albuterol Sulfate [Proair Respiclick] 90 mcg IH HS 12/04/16 Atorvastatin Calcium 40 mg PO HS 12/04/16 Citalopram Hydrobromide [Celexa -] 10 mg PO DAILY 12/04/16 Clopidogrel Bisulfate [Plavix -] 75 mg PO DAILY 12/04/16 Famotidine [Pepcid -] 40 mg PO TID 12/04/16 Fesoterodine Fumarate [Toviaz] 8 mg PO DAILY 12/04/16 Gabapentin 400 mg PO TID 12/04/16 Glyburide 6 mg PO BID 12/04/16 Insulin Glargine,Hum.rec.anlog [Lantus Solostar PEN -] 30 units SQ HS 12/04/16 Insulin Lispro [Humalog Kwikpen U-100] 12 unit SQ TID 12/04/16 Irbesartan 150 mg PO DAILY 12/04/16 Irbesartan [Avapro] 150 mg PO DAILY 12/04/16 Montelukast Na [Singulair -] 10 mg PO HS 12/04/16 Pantoprazole Sodium [Protonix -] 20 mg PO DAILY 12/04/16 Acetaminophen [Tylenol .Regular Strength -] 650 mg PO Q6H PRN #0 tablet Albuterol Sulfate Inhaler - [Ventolin HFA Inhaler -] 2 puff IH Q4H PRN #0 inhaler 12/08/16 Atorvastatin Ca [Lipitor] 40 mg PO HS tablet 12/08/16 Cephalexin Monohydrate [Keflex -] 500 mg PO BID #14 cap 12/08/16 Citalopram Hydrobromide [Celexa -] 10 mg PO DAILY #30 tablet 12/08/16 Clopidogrel Bisulfate [Plavix -] 75 mg PO DAILY tablet 12/08/16 Glyburide [Micronase -] 5 mg PO DAILY@0700 tablet 12/08/16 Montelukast Na [Singulair -] 10 mg PO HS tablet 12/08/16 Quetiapine Fumarate [Seroquel -] 25 mg PO HS #30 tablet 12/08/16
[2016-12-08 08:38] VITALS: BP 110/52
[2016-12-08 08:43] VITALS: TEMP 98.6
[2016-12-08 08:45] LABS: COCKROFT - GAULT 67.3795; CREATININE 1.3 mg/dL (0.55-1.02)
[2016-12-08] MEDS: CLOPIDOGREL BISULFATE 75 MG TABLET (FP) PO SCH (09:23)
[2016-12-08] MEDS: PANTOPRAZOLE 40 MG TABLET (FP) PO SCH (09:23)
[2016-12-08] MEDS: CEPHALEXIN MONOHYDRATE 500 MG CAPSULE (UD) PO SCH (09:23)
[2016-12-08] MEDS: CITALOPRAM HYDROBROMIDE 10 MG TABLET (FP) PO SCH (09:23)
--- NOTE | 2016-12-08 09:42 | PN ---
Progress Note (short form) - Note Progress Note: CENTRAL LINE REMOVED BEDSIDE TOLERATED WELL, CLEAN WITH NO DRAINAGE OR DISCHARGE CLEANED WITH BETADYNE WITH NURSE JUANPABLO, BANDAGE APPLIED. Problem List - Problems (1) KEESHA (acute kidney injury) Code(s): N17.9 - ACUTE KIDNEY FAILURE, UNSPECIFIED (2) Sepsis Code(s): A41.9 - SEPSIS, UNSPECIFIED ORGANISM Qualifiers: Sepsis type: sepsis due to unspecified organism Qualified Code(s): A41.9 - Sepsis, unspecified organism (3) UTI (urinary tract infection) Code(s): N39.0 - URINARY TRACT INFECTION, SITE NOT SPECIFIED Qualifiers: Urinary tract infection type: site unspecified Hematuria presence: without hematuria Qualified Code(s): N39.0 - Urinary tract infection, site not specified (4) Diabetes Code(s): E11.9 - TYPE 2 DIABETES MELLITUS WITHOUT COMPLICATIONS Qualifiers: Diabetes mellitus type: type 2 Diabetes mellitus complication status: with unspecified complications (5) H/O: CVA (cerebrovascular accident) Code(s): Z86.73 - PRSNL HX OF TIA (TIA), AND CEREB INFRC W/O RESID DEFICITS (6) HTN (hypertension) Code(s): I10 - ESSENTIAL (PRIMARY) HYPERTENSION Qualifiers: Hypertension type: essential hypertension Qualified Code(s): I10 - Essential (primary) hypertension (7) Intractable abdominal pain Code(s): R10.9 - UNSPECIFIED ABDOMINAL PAIN (8) Anxiety Code(s): F41.9 - ANXIETY DISORDER, UNSPECIFIED
--- NOTE | 2016-12-08 11:46 | PN ---
Progress Note, Physician History of Present Illness: Pt seen and examined at bedside. She is awake and alert. - Current Medication List Current Medications: Active Medications Acetaminophen (Tylenol -) 650 mg PO Q6H PRN PRN Reason: FEVER OR PAIN Last Admin: 12/07/16 12:20 Dose: 650 mg Albuterol Sulfate (Ventolin Hfa Inhaler -) 2 puff IH Q4H PRN PRN Reason: SHORT OF BREATH/WHEEZING Atorvastatin Calcium (Lipitor -) 40 mg PO HS [facility] Last Admin: 12/07/16 21:27 Dose: 40 mg Cephalexin HCl (Keflex -) 500 mg PO BID [facility] Last Admin: 12/08/16 09:23 Dose: 500 mg Citalopram Hydrobromide (Celexa -) 10 mg PO DAILY [facility] Last Admin: 12/08/16 09:23 Dose: 10 mg Clopidogrel Bisulfate (Plavix -) 75 mg PO DAILY [facility] Last Admin: 12/08/16 09:23 Dose: 75 mg Gabapentin (Neurontin -) 400 mg PO TID [facility] Last Admin: 12/08/16 06:19 Dose: 400 mg Glyburide (Diabeta -) 5 mg PO DAILY@0700 [facility] Last Admin: 12/08/16 06:19 Dose: 5 mg Sodium Chloride (Normal Saline -) 1,000 mls @ 42 mls/hr IV ASDIR [facility] Last Admin: 12/07/16 14:41 Dose: 42 mls/hr Insulin Aspart (Novolog Vial Sliding Scale -) 1 vial SQ ACHS [facility] PRN Reason: Protocol Last Admin: 12/08/16 06:20 Dose: Not Given Insulin Detemir (Levemir Vial) 30 units SQ HS [facility] Last Admin: 12/07/16 21:30 Dose: 30 units Insulin Detemir (Levemir Vial) 20 units SQ AM [facility] Last Admin: 12/08/16 06:19 Dose: 20 units Lorazepam (Ativan -) 0.5 mg PO TID PRN PRN Reason: ANXIETY Last Admin: 12/06/16 08:44 Dose: 0.5 mg Montelukast Sodium (Singulair -) 10 mg PO HS [facility] Last Admin: 12/07/16 21:27 Dose: 10 mg Pantoprazole Sodium (Protonix -) 40 mg PO DAILY [facility] Last Admin: 12/08/16 09:23 Dose: 40 mg Quetiapine Fumarate (Seroquel -) 25 mg PO HS [facility] Last Admin: 12/07/16 21:27 Dose: 25 mg Sodium Chloride (Normal Saline -) 1,000 ml IV Q20M PRN PRN Reason: MAP<65mm Hg OR SBP <90 Last Admin: 12/04/16 18:35 Dose: 1,000 ml - Objective Vital Signs: Vital Signs Temperature 98.6 F 12/08/16 08:37 Pulse Rate 80 12/08/16 08:37 Respiratory Rate 20 12/08/16 08:37 Blood Pressure 110/52 12/08/16 08:37 O2 Sat by Pulse Oximetry (%) 98 12/08/16 09:00 Constitutional: Yes: Calm Eyes: Yes: Conjunctiva Clear HENT: Yes: Atraumatic Neck: Yes: Supple Cardiovascular: Yes: S1, S2 Respiratory: Yes: CTA Bilaterally Gastrointestinal: Yes: Normal Bowel Sounds, Soft Genitourinary: Yes: WNL Edema: No Integumentary: Yes: WNL Neurological: Yes: Pre-Existing Deficit Psychiatric: Yes: Oriented Labs: CBC, BMP 12/06/16 06:00 12/08/16 07:00 INR, PTT INR 1.30 (0.82-1.09) H 12/04/16 14:38 Problem List - Problems (1) KEESHA (acute kidney injury) Code(s): N17.9 - ACUTE KIDNEY FAILURE, UNSPECIFIED (2) Sepsis Code(s): A41.9 - SEPSIS, UNSPECIFIED ORGANISM Qualifiers: Sepsis type: sepsis due to unspecified organism Qualified Code(s): A41.9 - Sepsis, unspecified organism (3) UTI (urinary tract infection) Code(s): N39.0 - URINARY TRACT INFECTION, SITE NOT SPECIFIED Qualifiers: Urinary tract infection type: site unspecified Hematuria presence: without hematuria Qualified Code(s): N39.0 - Urinary tract infection, site not specified (4) Diabetes Code(s): E11.9 - TYPE 2 DIABETES MELLITUS WITHOUT COMPLICATIONS Qualifiers: Diabetes mellitus type: type 2 Diabetes mellitus complication status: with unspecified complications (5) HTN (hypertension) Code(s): I10 - ESSENTIAL (PRIMARY) HYPERTENSION Qualifiers: Hypertension type: essential hypertension Qualified Code(s): I10 - Essential (primary) hypertension (6) Pacemaker Code(s): Z95.0 - PRESENCE OF CARDIAC PACEMAKER (7) Renal calculus, right Code(s): N20.0 - CALCULUS OF KIDNEY (8) Urinary tract obstruction due to kidney stone Code(s): N20.0 - CALCULUS OF KIDNEY N13.8 - OTHER OBSTRUCTIVE AND REFLUX UROPATHY Assessment/Plan Current Medications Generic Name Dose Route Start Last Admin Trade Name Freq PRN Reason Stop Dose Admin Acetaminophen 650 mg 12/04/16 21:50 12/07/16 12:20 Tylenol - PO 650 mg Q6H PRN Administration FEVER OR PAIN Albuterol Sulfate 2 puff 12/04/16 21:50 Ventolin Hfa Inhaler - IH Q4H PRN SHORT OF BREATH/WHEEZING Atorvastatin Calcium 40 mg 12/04/16 22:00 12/07/16 21:27 Lipitor - PO 40 mg HS [facility] Administration Cephalexin HCl 500 mg 12/07/16 12:30 12/08/16 09:23 Keflex - PO 500 mg BID [facility] Administration Citalopram Hydrobromide 10 mg 12/05/16 10:00 12/08/16 09:23 Celexa - PO 10 mg DAILY [facility] Administration Clopidogrel Bisulfate 75 mg 12/05/16 10:00 12/08/16 09:23 Plavix - PO 75 mg DAILY [facility] Administration Gabapentin 400 mg 12/04/16 22:00 12/08/16 06:19 Neurontin - PO 400 mg TID [facility] Administration Glyburide 5 mg 12/05/16 07:00 12/08/16 06:19 Diabeta - PO 5 mg DAILY@0700 [facility] Administration Sodium Chloride 1,000 mls @ 42 mls/hr 12/07/16 14:34 12/07/16 14:41 Normal Saline - IV 42 mls/hr ASDIR [facility] Administration Insulin Aspart 1 vial 12/05/16 11:00 12/08/16 06:20 Novolog Vial Sliding Scale - SQ Not Given ACHS [facility] Protocol Insulin Detemir 30 units 12/04/16 22:00 12/07/16 21:30 Levemir Vial SQ 30 units HS [facility] Administration Insulin Detemir 20 units 12/06/16 07:00 12/08/16 06:19 Levemir Vial SQ 20 units AM [facility] Administration Lorazepam 0.5 mg 12/04/16 21:53 12/06/16 08:44 Ativan - PO 0.5 mg TID PRN Administration ANXIETY Montelukast Sodium 10 mg 12/04/16 22:00 12/07/16 21:27 Singulair - PO 10 mg HS [facility] Administration Pantoprazole Sodium 40 mg 12/05/16 10:00 12/08/16 09:23 Protonix - PO 40 mg DAILY [facility] Administration Quetiapine Fumarate 25 mg 12/06/16 22:00 12/07/16 21:27 Seroquel - PO 25 mg HS [facility] Administration Sodium Chloride 1,000 ml 12/04/16 13:34 12/04/16 18:35 Normal Saline - IV 1,000 ml Q20M PRN Administration MAP<65mm Hg OR SBP <90 Impression 1. KEESHA 2. sepsis 3. nephrolithiasis 4. hydronephrosis from calculus 5. Hyponatremia 6. HTN 7. UTI 8. S/P recent removal of a urinary stent for urolithiasis 9. Anemia 10. S/P CVA with left HP 11. S/P PPM Plan - renal function is improved - can see pt in office - pt tolerating diet - will need urology follow up as outpt as well - cont abx - will follow Dr Ribeiro
== END 2016-12-08 11:59 | disposition home health service (06) | DRG 871 ==
LOC: JER 12:42 → JERBED 19:53 → UNDOADMIN 19:57 → J8W 12-05 00:28
PROVIDERS: ADMIT Family Medicine; ATTEND Family Medicine
PROC: 05HM33Z Insertion of Infusion Device into Right Internal Jugular Vein, Percutaneous Approach (ICD-10-PCS; principal; 2016-12-04)
DX: A41.9 Sepsis, unspecified organism (principal); G92 Toxic encephalopathy; N39.0 Urinary tract infection, site not specified; E87.2 Acidosis; N13.8 Other obstructive and reflux uropathy; N17.9 Acute kidney failure, unspecified; N13.2 Hydronephrosis with renal and ureteral calculous obstruction; E87.1 Hypo-osmolality and hyponatremia; D72.829 Elevated white blood cell count, unspecified; Z95.0 Presence of cardiac pacemaker; Z86.73 Personal history of transient ischemic attack (TIA), and cerebral infarction without residual deficits; D64.9 Anemia, unspecified; F41.9 Anxiety disorder, unspecified; B96.1 Klebsiella pneumoniae [K. pneumoniae] as the cause of diseases classified elsewhere; B96.20 Unspecified Escherichia coli [E. coli] as the cause of diseases classified elsewhere; E78.5 Hyperlipidemia, unspecified; E11.65 Type 2 diabetes mellitus with hyperglycemia; I10 Essential (primary) hypertension
CPT/HCPCS: 36415; 36600; 70450-TC; 71010-TC; 72125-TC; 72128-TC; 76775-TC; 76856-TC; 80048; 80053; 81003; 81015; 82375; 82550; 82570; 82607; 82803; 83036; 83050; 83605; 84300; 84425; 84439; 84443; 84484; 85025; 85610; 85730; 86850; 86900; 86901; 87040; 87086; 87186; 93005; 93010; 97161; 99285-25

== ENCOUNTER 2017-11-08 13:01 | Inpatient (IN) | payer OTHER ==
--- NOTE | 2017-11-08 13:31 | PDOC ---
History of Present Illness - General Chief Complaint: Pain Stated Complaint: ABD PAIN Time Seen by Provider: 11/08/17 13:30 History Source: Patient Exam Limitations: No Limitations - History of Present Illness Initial Comments: 11/08/17 16:04 Patient 72-year-old female past medical history of insulin independent diabetes , hyperlipidemia, presents emergency department today complaining of burning on urination. Patient states she was seen by her SPICE MILLER HAMMER MILL and diagnosed with urinary tract infection. Patient also with back pain. Given symptoms her [employer]ATION OPERATOR told her to come to the emergency department for admission. She states that she has some tenderness in her abdomen. Patient denies fevers, chills, shortness of breath, difficulty breathing, diarrhea, vomiting, nausea, hematuria, hematochezia and melena. Past History - Travel Traveled outside of the country in the last 30 days: No Close contact w/someone who was outside of country & ill: No - Past Medical History Allergies/Adverse Reactions: Allergies Allergy/AdvReac Type Severity Reaction Status Date / Time aspirin Allergy Verified 11/08/17 14:52 tramadol Allergy Verified 11/08/17 14:52 Home Medications: Ambulatory Orders Albuterol Sulfate [Proair Respiclick] 90 mcg IH QID 11/08/17 Ammonium Lactate Cream [Lac-Hydrin] 1 applic TP BID 11/08/17 Atorvastatin Ca [Lipitor] 40 mg PO HS 11/08/17 Baclofen 10 mg PO DAILY 11/08/17 Cholecalciferol (Vitamin D3) [Vitamin D3] 50,000 unit PO WEEKLY 11/08/17 Citalopram Hydrobromide [Celexa -] 10 mg PO DAILY 11/08/17 Clopidogrel Bisulfate [Clopidogrel] 75 mg PO DAILY 11/08/17 Clopidogrel Bisulfate [Plavix] 75 mg PO DAILY 11/08/17 Cyproheptadine HCl 2 mg PO QID 11/08/17 Famotidine [Pepcid] 40 mg PO TID 11/08/17 Fesoterodine Fumarate [Toviaz] 8 mg PO DAILY 11/08/17 Gabapentin 400 mg PO TID 11/08/17 Glyburide 6 mg PO BID 11/08/17 Guaifenesin [Robitussin -] 100 mg PO TID 11/08/17 Insulin Glargine,Hum.rec.anlog [Lantus] 34 unit SQ BID 11/08/17 Insulin Lispro [Humalog] 12 unit SQ TID 11/08/17 Irbesartan [Avapro] 150 mg PO DAILY 11/08/17 Montelukast Sodium [Singulair] 10 mg PO HS 11/08/17 Nystatin Powder [Nystop Topical Powder -] 15 gm TP TID 11/08/17 Pantoprazole Sodium [Protonix -] 20 mg PO DAILY 11/08/17 Quetiapine Fumarate [Seroquel -] 50 mg PO HS 11/08/17 Asthma: Yes Cancer: No Cardiac Disorders: No CVA: Yes (LEft residual weakness) COPD: No Diabetes: Yes GI Disorders: Yes (GERD) Disorders: Yes (KIDNEY STONES, URINARY INCONTINENCE, UTI) HTN: Yes Hypercholesterolemia: Yes - Surgical History Cardiac Surgery: Yes Cholecystectomy: Yes Orthopedic Surgery: Yes (LEFT HIP REPLACEMENT) - Suicide/Smoking/Psychosocial Hx Smoking History: Never smoked Have you smoked in the past 12 months: No Information on smoking cessation initiated: No Hx Alcohol Use: No Drug/Substance Use Hx: No Substance Use Type: None Review of Systems - Review of Systems Able to Perform ROS?: Yes Comments:: 11/08/17 16:01 CONSTITUTIONAL: Absent: fever, chills, diaphoresis, generalized weakness, malaise, loss of appetite HEENT: Absent: rhinorrhea, nasal congestion, throat pain, throat swelling, difficulty swallowing, mouth swelling, ear pain, eye pain, visual changes CARDIOVASCULAR: Absent: chest pain, loss of consciousness, palpitations, irregular heart rate, peripheral edema RESPIRATORY: Absent: cough, shortness of breath, dyspnea with exertion, orthopnea, wheezing, stridor, hemoptysis GASTROINTESTINAL: Present: Lower abdominal pain. Absent: abdominal distension, nausea, vomiting, diarrhea, constipation, melena, hematochezia GENITOURINARY: Present: dysuria, frequency, urgency Absent: dysuria, frequency, urgency, hesitancy, hematuria, flank pain, genital pain MUSCULOSKELETAL: Absent: myalgia, arthralgia, joint swelling SKIN: Absent: rash, itching, pallor HEMATOLOGIC/IMMUNOLOGIC: Absent: easy bleeding, easy bruising, lymphadenopathy, frequent infections ENDOCRINE: Absent: unexplained weight gain, unexplained weight loss, heat intolerance, cold intolerance NEUROLOGIC: Absent: headache, focal weakness or paresthesias, dizziness, unsteady gait, seizure, mental status changes, bladder or bowel incontinence PSYCHIATRIC: Absent: anxiety, depression, suicidal or homicidal ideation, hallucinations. Is the patient limited Irish proficient: No *Physical Exam - Vital Signs Last Vital Signs Temp Pulse Resp BP Pulse Ox 98.1 F 66 16 159/70 100 11/08/17 13:05 11/08/17 13:05 11/08/17 13:05 11/08/17 13:05 11/08/17 13:05 - Physical Exam Comments: 11/08/17 16:01 GENERAL: Well developed, well nourished. Awake and alert. No acute distress. HEENT: Normocephalic, atraumatic. PERRLA, EOMI. No conjunctival pallor. Sclera are non- icteric. Moist mucous membranes. Oropharynx is clear. NECK: Supple. Full ROM. No JVD. Carotid pulses 2+ and symmetric, without bruits. No thyromegaly. No lymphadenopathy. CARDIOVASCULAR: Regular rate and rhythm. No murmurs, rubs, or gallops. Distal pulses are 2+ and symmetric. PULMONARY: No evidence of respiratory distress. Lungs clear to auscultation bilaterally. No wheezing, rales or rhonchi. ABDOMINAL: TTP of the suprapubic region. Soft. Non-distended. No rebound or guarding. No organomegaly. Normoactive bowel sounds. MUSCULOSKELETAL Normal range of motion at all joints. No bony deformities or tenderness. (+) CVA tenderness on the R EXTREMITIES: No cyanosis. No clubbing. No edema. No calf tenderness. SKIN: Warm and dry. Normal capillary refill. No rashes. No jaundice. NEUROLOGICAL: Alert, awake, appropriate. Cranial nerves 2-12 intact. No deficits to light touch and temperature in face, upper extremities and lower extremities. No motor deficits in the in face, upper extremities and lower extremities. Normoreflexic in the upper and lower extremities. Normal speech. Toes are down- going bilaterally. Gait is normal without ataxia. PSYCHIATRIC: Cooperative. Good eye contact. Appropriate mood and affect. ED Treatment Course - LABORATORY CBC & Chemistry Diagram: 11/08/17 14:40 11/08/17 14:40 Medical Decision Making - Medical Decision Making 11/08/17 16:07 Patient is a 72-year-old female past medical history of insulin-dependent diabetes, hyperlipidemia, presents emergency Department with UTI diagnosed by [employer]ICE M[employer]ER HAMMER MILL and possible pylo. On review of prior cultures. Patient resistant to Bactrim , Levaquin. Sensitive to cephalosporins. Basic labs ordered, blood cultures drawn. 1 g of IV ceftriaxone given. Fluids given. Once labs are back will admit to for further management of her UTI due to past sensitivity. 11/08/17 16:35 No leukocytosis. Electrolytes WNL, BUN normal as well. Page to Dr. Wick for admission for IV abx. Urine with over 200 WBCS. 11/08/17 17:07 No call back from Dr[address] Wick. Microblogged hospitalists. Case discussed with Heena Weaver. Given hx of abx resistance, will place in observation for IV abs at this time. *DC/Admit/Observation/Transfer Diagnosis at time of Disposition: UTI (urinary tract infection) Qualifiers: Urinary tract infection type: site unspecified Hematuria presence: without hematuria Qualified Code(s): N39.0 - Urinary tract infection, site not specified - Discharge Dispostion Condition at time of disposition: Stable Decision to Admit order: Yes - Referrals Referrals: Ayleen Wick MD [Primary Care Provider] - - Patient Instructions - Post Discharge Activity
[2017-11-08] MEDS ORDERED: SODIUM CHLORIDE 1,000 ML IV STA (13:47)
[2017-11-08 14:55] LABS: BASO % 0.4 % (0-2.0); EOS % 3.1 % (0-4.5); HEMATOCRIT 35.9 % (32.4-45.2); HEMOGLOBIN 12.2 GM/dL (10.7-15.3); LYMPH % 27.6 % (8-40); MCH 29.8 pg (25.7-33.7); MCHC 34.1 g/dl (32.0-36.0); MEAN CELL VOLUME 87.3 fl (80-96); MEAN PLT VOLUME 8.2 fl (7.5-11.1); MONO % 7.5 % (3.8-10.2); NEUT % 61.4 % (42.8-82.8); PLATELET COUNT 181 K/MM3 (134-434); RBC 4.11 M/mm3 (3.60-5.2); WHITE BLOOD COUNT 6.5 K/mm3 (4.0-10.0)
--- NOTE | 2017-11-08 14:55 | PDOC ---
*Physical Exam - Vital Signs Last Vital Signs Temp Pulse Resp BP Pulse Ox 98.1 F 66 16 159/70 100 11/08/17 13:05 11/08/17 13:05 11/08/17 13:05 11/08/17 13:05 11/08/17 13:05 ED Treatment Course - LABORATORY CBC & Chemistry Diagram: 11/11/17 08:10 11/11/17 08:10 Medical Decision Making - Medical Decision Making 11/08/17 14:54 Pt seen by the Advanced Practice Provider under my direct supervision Ancillary studies reviewed I agree with plan as outlined by the Advanced Practice Provider KATY Arizmendi *DC/Admit/Observation/Transfer Diagnosis at time of Disposition: UTI (urinary tract infection) - Discharge Dispostion Disposition: HOME Condition at time of disposition: Stable - Referrals - Patient Instructions - Post Discharge Activity
[2017-11-08 15:21] LABS: URINE APPEARANCE CLOUDY; URINE BILIRUBIN NEGATIVE (<2.0 mg/dL); URINE COLOR YELLOW; URINE GLUCOSE (UA) 2+ (NEGATIVE); URINE KETONE NEGATIVE (NEGATIVE); URINE NITRITE NEGATIVE (NEGATIVE); URINE UROBILINOGEN NEGATIVE mg/dL (0.2-1.0)
[2017-11-08] MEDS ORDERED: CEFTRIAXONE 1,000 MG in DEXTROSE 5%-WATER - 50 ML IVPB ONE (15:22)
[2017-11-08 15:24] LABS: ALBUMIN 3.6 g/dl (3.4-5.0); ALK PHOS 113 U/L (45-117); ANION GAP 4 (8-16); BILIRUBIN,TOTAL 0.5 mg/dL (0.2-1.0); BLOOD UREA NITROGEN 15 mg/dL (7-18); CALCIUM 9.4 mg/dL (8.5-10.1); CHLORIDE 103 mmol/L (98-107); CO2 31 mmol/L (21-32); CREATININE 1.1 mg/dL (0.55-1.02); GLUCOSE,RANDOM 232 mg/dL (74-106); PHOSPHOROUS 2.1 mg/dL (2.5-4.9); SGPT/ALT 20 U/L (12-78); SODIUM 138 mmol/L (136-145); TOT PROT 7.1 g/dl (6.4-8.2)
[2017-11-08 15:25] LABS: URINE LEUK ESTERASE 3+ (NEGATIVE); URINE PROTEIN 2+ (NEGATIVE)
[2017-11-08 15:49] LABS: EPI CELLS RARE /HPF (FEW); URINE BACTERIA FEW /hpf (NONE SEEN); URINE HYALINE CAST 2 /lpf; URINE MUCUS RARE
[2017-11-08 16:03] LABS: POTASSIUM 4.2 mmol/L (3.5-5.1)
[2017-11-08 16:04] LABS: SGOT/AST 17 U/L (15-37)
[2017-11-08] MEDS ORDERED: CEFTRIAXONE 1 GM/50 ML BAG ONE (17:49)
--- NOTE | 2017-11-08 18:09 | HP ---
CHIEF COMPLAINT: Lower abdominal pain and dysuria x 2 weeks PCP: Dr. Wick HISTORY OF PRESENT ILLNESS: This is a 72 year old female with PMHx of DM, hyperlipidemia, HTN, neuropathy, pacemaker, CVA (left residual weakness), kidney stones (s/p removal [address] Decker), who presented to the with 2 weeks of suprapubic pain and dysuria. The patient reports she has had multiple UTIs in the past. She denies any hematuria, fever, chills, urgency, frequency. The patient reports she was sent in by her change analyst today for UTI and IV abx. ER course was notable for: (1) Temp 98.1, pulse 66, BP 159/70, resp 16, O2 100% on RA (2) Cr 1.1 (3) UA with 3+ leuks, WBC 261, few bacteria Recent Travel: denies PAST MEDICAL HISTORY: as above PAST SURGICAL HISTORY: as above Social History: Smoking: denies Alcohol: denies Drugs: denies Family History: Allergies aspirin Allergy (Verified 11/08/17 14:52) tramadol Allergy (Verified 11/08/17 14:52) HOME MEDICATIONS: Home Medications Medication Instructions Recorded Albuterol Sulfate [Proair 90 mcg IH QID 11/08/17 Respiclick] Ammonium Lactate Cream [Lac-Hydrin] 1 applic TP BID 11/08/17 Atorvastatin Ca [Lipitor] 40 mg PO HS 11/08/17 Baclofen 10 mg PO DAILY 11/08/17 Cholecalciferol (Vitamin D3) 50,000 unit PO WEEKLY 11/08/17 [Vitamin D3] Citalopram Hydrobromide [Celexa -] 10 mg PO DAILY 11/08/17 Citalopram Hydrobromide [Celexa -] 10 mg PO DAILY 11/08/17 Clopidogrel Bisulfate [Clopidogrel] 75 mg PO DAILY 11/08/17 Clopidogrel Bisulfate [Plavix] 75 mg PO DAILY 11/08/17 Cyproheptadine HCl 2 mg PO QID 11/08/17 Famotidine [Pepcid] 40 mg PO TID 11/08/17 Fesoterodine Fumarate [Toviaz] 8 mg PO DAILY 11/08/17 Gabapentin 400 mg PO TID 11/08/17 Glyburide 6 mg PO BID 11/08/17 Guaifenesin [Robitussin -] 100 mg PO TID 11/08/17 Insulin Glargine,Hum.rec.anlog 34 unit SQ BID 11/08/17 [Lantus] Insulin Lispro [Humalog] 12 unit SQ TID 11/08/17 Irbesartan [Avapro (Nf) -] 150 mg PO DAILY 11/08/17 Irbesartan [Avapro] 150 mg PO DAILY 11/08/17 Irbesartan [Avapro] 150 mg PO DAILY 11/08/17 Montelukast Sodium [Singulair] 10 mg PO HS 11/08/17 Nystatin Powder [Nystop Topical 15 gm TP TID 11/08/17 Powder -] Pantoprazole Sodium [Protonix -] 20 mg PO DAILY 11/08/17 Quetiapine Fumarate [Seroquel -] 50 mg PO HS 11/08/17 REVIEW OF SYSTEMS CONSTITUTIONAL: Absent: fever, chills, diaphoresis, generalized weakness, malaise, loss of appetite, weight change HEENT: Absent: rhinorrhea, nasal congestion, throat pain, throat swelling, difficulty swallowing, mouth swelling, ear pain, eye pain, visual changes CARDIOVASCULAR: Absent: chest pain, syncope, palpitations, irregular heart rate, lightheadedness , peripheral edema RESPIRATORY: Absent: cough, shortness of breath, dyspnea with exertion, orthopnea, wheezing, stridor, hemoptysis GASTROINTESTINAL: Absent: abdominal pain, abdominal distension, nausea, vomiting, diarrhea, constipation, melena, hematochezia GENITOURINARY: Dysuria that began 2 weeks ago with b/l flank pain Absent: frequency, urgency, hesitancy, hematuria, genital pain MUSCULOSKELETAL: Absent: myalgia, arthralgia, joint swelling, back pain, neck pain SKIN: Absent: rash, itching, pallor HEMATOLOGIC/IMMUNOLOGIC: Absent: easy bleeding, easy bruising, lymphadenopathy, frequent infections ENDOCRINE: Absent: unexplained weight gain, unexplained weight loss, heat intolerance, cold intolerance NEUROLOGIC: Absent: headache, focal weakness or paresthesias, dizziness, unsteady gait, seizure, mental status changes, bladder or bowel incontinence PSYCHIATRIC: Absent: anxiety, depression, suicidal or homicidal ideation, hallucinations. PHYSICAL EXAMINATION Vital Signs - 24 hr 11/08/17 13:05 Temperature 98.1 F Pulse Rate 66 Respiratory 16 Rate Blood Pressure 159/70 O2 Sat by Pulse 100 Oximetry (%) GENERAL: Awake, alert, and fully oriented, in no acute distress. HEAD: Normal with no signs of trauma. EYES: Pupils equal, round and reactive to light, extraocular movements intact, sclera anicteric, conjunctiva clear. No lid lag. EARS, NOSE, THROAT: Ears normal, nares patent, oropharynx clear without exudates. Moist mucous membranes. NECK: Normal range of motion LUNGS: Breath sounds equal, clear to auscultation bilaterally. No wheezes, and no crackles. No accessory muscle use. HEART: + pacemaker, Regular rate and rhythm ABDOMEN: Soft, nontender, not distended, normoactive bowel sounds, no guarding, no rebound, no masses. No hepatomegaly or splenomegaly. MUSCULOSKELETAL: Slight b/l CVA tenderness. Normal range of motion at all joints. No bony deformities or tenderness. UPPER EXTREMITIES: 2+ pulses, warm, well-perfused. No cyanosis. No clubbing. No peripheral edema. LOWER EXTREMITIES: Left heel wound with dressing, c/d/i. 2+ pulses, warm, well- perfused. No calf tenderness. No peripheral edema. NEUROLOGICAL: Normal speech. Left upper and lower extremity weakness 2/2 previous CVA PSYCHIATRIC: Cooperative. Good eye contact. Appropriate mood and affect. SKIN: Left buttock wound with dressing c/d/i. Sacral healed ulcer. Warm, dry, normal turgor Laboratory Results - last 24 hr 11/08/17 11/08/17 11/08/17 14:40 14:40 15:07 WBC 6.5 D RBC 4.11 Hgb 12.2 D Hct 35.9 D MCV 87.3 MCH 29.8 MCHC 34.1 RDW 13.0 Plt Count 181 MPV 8.2 Neutrophils % 61.4 Lymphocytes % 27.6 D Monocytes % 7.5 Eosinophils % 3.1 Basophils % 0.4 Sodium 138 Potassium 4.2 Chloride 103 Carbon Dioxide 31 Anion Gap 4 L BUN 15 Creatinine 1.1 H Creat Clearance w eGFR 49.10 Random Glucose 232 H Calcium 9.4 Phosphorus 2.1 L Magnesium 3.0 H Total Bilirubin 0.5 D AST 17 ALT 20 Alkaline Phosphatase 113 Total Protein 7.1 Albumin 3.6 Urine Color Yellow Urine Appearance Cloudy Urine pH 6.0 Ur Specific [place] 1.010 Urine Protein 2+ H Urine Glucose (UA) 2+ H Urine Ketones Negative Urine Blood Negative Urine Nitrite Negative Urine Bilirubin Negative Urine Urobilinogen Negative Ur Leukocyte Esterase 3+ H Urine WBC (Auto) 261 Urine RBC (Auto) 2 Ur Epithelial Cells Rare Urine Bacteria Few Hyaline Casts 2 Urine Mucus Rare Assessment: This is a 72 year old female with PMHx of DM, hyperlipidemia, HTN, neuropathy, pacemaker, CVA (left residual weakness), kidney stones (s/p removal [address] Decker), who presented to the with 2 weeks of suprapubic pain and dysuria. Plan: 1) Recurrent UTI - Previous UTIs sensitive to Cephalosporins - Continue Ceftriaxone 1g IVPB daily - Slight CVA tenderness, possible pyelo? Hx of kidney stones. No blood in urine , however will check kidney ultrasound to r/o hydro - WBC wnl - Afebrile 2) DM - Continue Levemir - BGM ACHS - ISS ACHS 3) HTN - Continue home medication 4) Hyperlipidemia - Continue Lipitor 5) Pacemaker 6) Hx of CVA - Left residual weakness 7) Prolonged qtc - On previous EKG - Recheck EKG now - Hold seroquel - Consider decreasing dose of Celexa 7) F/E/N: - Diabetic/sodium controlled diet - Monitor electrolytes 8) Prophylaxis: - OOB with assistance - SCDs bilaterally 9) Dispo: - Once condition improves Visit type - Emergency Visit Emergency Visit: Yes Care time: The patient presented to the Emergency Department on the above date and was hospitalized for further evaluation of their emergent condition. - New Patient This patient is new to me today: Yes Date on this admission: 11/08/17 - Critical Care Critical Care patient: No Hospitalist Screening - Colonoscopy Questionnaire Colonoscopy Questionnaire: Colonoscopy Questionnaire - Patient: 50 - 75 years old and never had a screening colonoscopy: Unknown History of colon or rectal polyps, or CA: Unknown History of IBD, Crohn's disease or UC: Unknown History of abdominal radiation therapy as a child: Unknown - Relative: 1 with colon or rectal CA, or polyps at age 60 or younger: Unknown Colon or rectal CA diagnosed at age 45 or younger: Unknown Multiple relatives with colon or rectal CA: Unknown - Outcome: Screening Result: Negative Screen
[2017-11-08] MEDS ORDERED: ALBUTEROL SO4 0.083% IH SOL 2.5 MG/3 ML VIAL.NEB. NEB PRN (18:13)
[2017-11-08] MEDS ORDERED: QUEtiapine FUMARATE 50 MG TABLET PO SCH (22:00)
[2017-11-08] MEDS: AMMONIUM LACTATE 12% LOTION 225 GM BOTTLE TP SCH (23:14)
[2017-11-08] MEDS: INSULIN (LEVEMIR) 100 UNITS/ML UNITS SQ SCH (23:15)
[2017-11-08] MEDS: ATORVASTATIN CA 40 MG TABLET (FP) PO SCH (23:16)
[2017-11-08] MEDS: INSULIN SLIDING SCALE (NOVOLOG) 1 VIAL SQ SCH (23:16)
[2017-11-08] MEDS: RANITIDINE HCL 150 MG TABLET (FP) PO SCH (23:16)
[2017-11-08] MEDS: GABAPENTIN 400 MG CAPSULE (FP) PO SCH (23:16)
[2017-11-08] MEDS: MONTELUKAST NA 10 MG TABLET PO SCH (23:17)
[2017-11-08] MEDS: NYSTATIN POWDER 100,000 UNITS/GM - 15 GM TOPICAL POWDER TP SCH (23:26)
[2017-11-08] MEDS: CYPROHEPTADINE HYDROCHLORIDE 2 MG/5 ML SOLUTION PO SCH (23:26)
[2017-11-08] MEDS ORDERED: PT OWN MED DRAWER 7, Y5N ONE (23:40)
[2017-11-09] MEDS ORDERED: ACETAMINOPHEN 325 MG TABLET (FP) PO ONE (05:43)
[2017-11-09] MEDS: NYSTATIN POWDER 100,000 UNITS/GM - 15 GM TOPICAL POWDER TP SCH ×3 (06:00→22:09)
[2017-11-09] MEDS: GABAPENTIN 400 MG CAPSULE (FP) PO SCH ×3 (06:00→22:09)
[2017-11-09] MEDS: INSULIN SLIDING SCALE (NOVOLOG) 1 VIAL SQ SCH ×4 (06:24→22:08)
[2017-11-09] MEDS: INSULIN (LEVEMIR) 100 UNITS/ML UNITS SQ SCH ×2 (06:24→22:08)
[2017-11-09] MEDS ORDERED: INSULIN (NOVOLOG) ASPART 100 UNITS/ML 10ML VIAL ONE ×4 (06:31→21:02)
[2017-11-09 09:28] LABS: BASO % 0.7 % (0-2.0); EOS % 3.4 % (0-4.5); HEMATOCRIT 34.7 % (32.4-45.2); HEMOGLOBIN 11.8 GM/dL (10.7-15.3); LYMPH % 26.7 % (8-40); MCH 29.4 pg (25.7-33.7); MCHC 33.9 g/dl (32.0-36.0); MEAN CELL VOLUME 86.7 fl (80-96); MEAN PLT VOLUME 8.4 fl (7.5-11.1); NEUT % 61.2 % (42.8-82.8); PLATELET COUNT 181 K/MM3 (134-434); RBC 4.01 M/mm3 (3.60-5.2); RDW 12.9 % (11.6-15.6); WHITE BLOOD COUNT 6.9 K/mm3 (4.0-10.0)
[2017-11-09] MEDS ORDERED: CITALOPRAM HYDROBROMIDE 10 MG TABLET (FP) PO SCH (10:00)
[2017-11-09 10:23] LABS: CHLORIDE 106 mmol/L (98-107); POTASSIUM 4.1 mmol/L (3.5-5.1); SODIUM 141 mmol/L (136-145)
--- NOTE | 2017-11-09 10:48 | PN ---
Progress Note, Physician Chief Complaint: AWAKE ALERT FAMILY BEDSIDE CHART REVIEWED - Current Medication List Current Medications: Active Medications Albuterol Sulfate (Ventolin 0.083% Nebulizer Soln -) 1 amp NEB Q6H PRN PRN Reason: SHORT OF BREATH/WHEEZING Atorvastatin Calcium (Lipitor -) 40 mg PO HS [facility] Last Admin: 11/08/17 23:16 Dose: 40 mg Baclofen (Lioresal -) 10 mg PO DAILY [facility] Citalopram Hydrobromide (Celexa -) 10 mg PO DAILY [facility] Clopidogrel Bisulfate (Plavix -) 75 mg PO DAILY [facility] Cyproheptadine HCl (Periactin Solution -) 2 mg PO QID [facility] Last Admin: 11/08/17 23:26 Dose: 2 mg Gabapentin (Neurontin -) 400 mg PO TID [facility] Last Admin: 11/09/17 06:00 Dose: 400 mg Ceftriaxone Sodium 1 gm/ (Dextrose) 50 mls @ 200 mls/hr IVPB DAILY@1500 [facility] PRN Reason: Protocol Insulin Aspart (Novolog Vial Sliding Scale -) 1 vial SQ ACHS [facility] PRN Reason: Protocol Last Admin: 11/09/17 06:24 Dose: 6 units Insulin Detemir (Levemir Vial) 34 units SQ BID@0700,2200 [facility] Last Admin: 11/09/17 06:24 Dose: 34 units Lactic Acid (Lac-Hydrin 12) 1 applic TP BID [facility] Last Admin: 11/08/17 23:14 Dose: 1 applic Losartan Potassium (Cozaar -) 50 mg PO DAILY [facility] Montelukast Sodium (Singulair -) 10 mg PO HS [facility] Last Admin: 11/08/17 23:17 Dose: 10 mg Nystatin (Nystop Powder -) 1 applic TP TID [facility] Last Admin: 11/09/17 06:00 Dose: 1 applic Ranitidine HCl (Zantac -) 150 mg PO BID [facility] Last Admin: 11/08/17 23:16 Dose: 150 mg Tolterodine Tartrate (Detrol La -) 4 mg PO DAILY [facility] - Objective Vital Signs: Vital Signs Temperature 98.2 F 11/09/17 06:00 Pulse Rate 63 11/09/17 06:00 Respiratory Rate 18 11/09/17 06:00 Blood Pressure 136/68 11/09/17 06:00 O2 Sat by Pulse Oximetry (%) 98 11/08/17 22:00 Constitutional: Yes: Mild Distress Eyes: Yes: WNL HENT: Yes: WNL Neck: Yes: WNL Cardiovascular: Yes: WNL Respiratory: Yes: WNL Gastrointestinal: Yes: WNL Genitourinary: Yes: WNL Musculoskeletal: Yes: Muscle Weakness Extremities: Yes: Other Edema: Yes Peripheral Pulses WNL: Yes Integumentary: Yes: WNL Wound/Incision: Yes: Clean/Dry Neurological: Yes: Loss of Sensation, Pre-Existing Deficit, Weakness ...Motor Strength: LUE, LLE, RUE, RLE Psychiatric: No: WNL Labs: CBC, BMP 11/09/17 08:00 Problem List - Problems (1) Diabetes Code(s): E11.9 - TYPE 2 DIABETES MELLITUS WITHOUT COMPLICATIONS Qualifiers: Diabetes mellitus type: type 2 Diabetes mellitus complication status: with unspecified complications (2) H/O: CVA (cerebrovascular accident) Code(s): Z86.73 - PRSNL HX OF TIA (TIA), AND CEREB INFRC W/O RESID DEFICITS (3) HTN (hypertension) Code(s): I10 - ESSENTIAL (PRIMARY) HYPERTENSION Qualifiers: Hypertension type: essential hypertension Qualified Code(s): I10 - Essential (primary) hypertension (4) Intractable abdominal pain Code(s): R10.9 - UNSPECIFIED ABDOMINAL PAIN (5) Pacemaker Code(s): Z95.0 - PRESENCE OF CARDIAC PACEMAKER (6) UTI (urinary tract infection) Code(s): N39.0 - URINARY TRACT INFECTION, SITE NOT SPECIFIED Qualifiers: Urinary tract infection type: site unspecified Hematuria presence: without hematuria Qualified Code(s): N39.0 - Urinary tract infection, site not specified Assessment/Plan RENAL SONO CHECK URINE CX ID CONSULT OOB TO CHAIR OT PT IV ABX
[2017-11-09] MEDS ORDERED: PT OWN MED DRAWER 7, Y5N ONE ×6 (11:01→18:17)
[2017-11-09] MEDS: LOSARTAN POTASSIUM 50 MG TABLET (FP) PO SCH (11:03)
[2017-11-09] MEDS: CLOPIDOGREL BISULFATE 75 MG TABLET (FP) PO SCH (11:03)
[2017-11-09] MEDS: CITALOPRAM HYDROBROMIDE 10 MG TABLET (FP) PO SCH (11:03)
[2017-11-09] MEDS: RANITIDINE HCL 150 MG TABLET (FP) PO SCH ×2 (11:03→22:09)
[2017-11-09] MEDS: BACLOFEN 10 MG TABLET (FP) PO SCH (11:03)
[2017-11-09] MEDS: AMMONIUM LACTATE 12% LOTION 225 GM BOTTLE TP SCH ×2 (11:04→22:07)
[2017-11-09] MEDS: CYPROHEPTADINE HYDROCHLORIDE 2 MG/5 ML SOLUTION PO SCH ×4 (11:04→22:08)
[2017-11-09 11:23] LABS: ALBUMIN 3.2 g/dl (3.4-5.0); ALK PHOS 125 U/L (45-117); ANION GAP 10 (8-16); BILIRUBIN,TOTAL 0.4 mg/dL (0.2-1.0); BLOOD UREA NITROGEN 14 mg/dL (7-18); CO2 25 mmol/L (21-32); GLUCOSE,RANDOM 290 mg/dL (74-106); SGOT/AST 15 U/L (15-37); SGPT/ALT 18 U/L (12-78); TOT PROT 6.6 g/dl (6.4-8.2)
--- NOTE | 2017-11-09 13:12 | EKG ---
Test Reason : Blood Pressure : / mmHG Vent. Rate : 060 BPM Atrial Rate : 060 BPM P-R Int : 000 ms QRS Dur : 126 ms QT Int : 462 ms P-R-T Axes : 069 -29 -06 degrees QTc Int : 462 ms Atrial-paced rhythm with prolonged AV conduction RIGHT BUNDLE BRANCH BLOCK ABNORMAL ECG WHEN COMPARED WITH ECG OF 04-DEC-2016 14:14, ELECTRONIC ATRIAL PACEMAKER HAS REPLACED ELECTRONIC VENTRICULAR PACEMAKER VENT. RATE HAS DECREASED BY 31 BPM Confirmed by CODY RAE MD ([id number]) on 11/09/2017 1:12:01 PM Referred By: Confirmed By:CODY RAE MD
[2017-11-09] MEDS ORDERED: cefTRIAXone SODIUM 1 GM VIAL ONE (14:06)
[2017-11-09] MEDS ORDERED: DEXTROSE 5%-WATER - 50 ML IVPB ONE (14:06)
[2017-11-09] MEDS: TOLTERODINE TARTRATE LA 4 MG CAP.SR.24H (FP) PO SCH (14:10)
[2017-11-09] MEDS: BACITRACIN 15 GM TUBE TOPICAL OINTMENT TP SCH (14:12)
[2017-11-09] MEDS: CEFTRIAXONE 1 GM in DEXTROSE 5%-WATER - 50 ML IVPB SCH (16:12)
[2017-11-09] MEDS: METHYL SALICYLATE/MENTHOL OINT 30 GM TUBE TP SCH (16:22)
[2017-11-09] MEDS: MINERAL OIL/PET HY-PHL TOPICAL OINTMENT 454 GM JAR TP SCH (17:55)
[2017-11-09] MEDS: ATORVASTATIN CA 40 MG TABLET (FP) PO SCH (22:09)
[2017-11-09] MEDS: MONTELUKAST NA 10 MG TABLET PO SCH (22:09)
[2017-11-10] MEDS: INSULIN (LEVEMIR) 100 UNITS/ML UNITS SQ SCH ×2 (06:14→22:29)
[2017-11-10] MEDS: GABAPENTIN 400 MG CAPSULE (FP) PO SCH ×3 (06:14→22:30)
[2017-11-10] MEDS: NYSTATIN POWDER 100,000 UNITS/GM - 15 GM TOPICAL POWDER TP SCH ×3 (06:14→22:33)
[2017-11-10] MEDS: INSULIN SLIDING SCALE (NOVOLOG) 1 VIAL SQ SCH ×4 (06:15→22:30)
[2017-11-10] MEDS ORDERED: PT OWN MED DRAWER 7, Y5N ONE ×5 (10:48→19:44)
[2017-11-10] MEDS: AMMONIUM LACTATE 12% LOTION 225 GM BOTTLE TP SCH ×2 (10:55→22:29)
[2017-11-10] MEDS: RANITIDINE HCL 150 MG TABLET (FP) PO SCH ×2 (10:55→22:30)
[2017-11-10] MEDS: LOSARTAN POTASSIUM 50 MG TABLET (FP) PO SCH (10:56)
[2017-11-10] MEDS: METHYL SALICYLATE/MENTHOL OINT 30 GM TUBE TP SCH (10:56)
[2017-11-10] MEDS: CLOPIDOGREL BISULFATE 75 MG TABLET (FP) PO SCH (10:56)
[2017-11-10] MEDS: CYPROHEPTADINE HYDROCHLORIDE 2 MG/5 ML SOLUTION PO SCH ×5 (11:00→22:30)
[2017-11-10] MEDS: CITALOPRAM HYDROBROMIDE 10 MG TABLET (FP) PO SCH ×2 (11:01→15:07)
[2017-11-10] MEDS: BACLOFEN 10 MG TABLET (FP) PO SCH ×2 (11:02→15:07)
[2017-11-10] MEDS: TOLTERODINE TARTRATE LA 4 MG CAP.SR.24H (FP) PO SCH ×2 (11:02→15:07)
[2017-11-10] MEDS ORDERED: INSULIN (NOVOLOG) ASPART 100 UNITS/ML 10ML VIAL ONE ×6 (11:38→21:56)
[2017-11-10] MEDS: BACITRACIN 15 GM TUBE TOPICAL OINTMENT TP SCH (14:00)
--- NOTE | 2017-11-10 14:32 | PN ---
Progress Note, Physician Chief Complaint: patient complaining of dysuria and loose BM only had soup today did not feel like eating - Current Medication List Current Medications: Active Medications Albuterol Sulfate (Ventolin 0.083% Nebulizer Soln -) 1 amp NEB Q6H PRN PRN Reason: SHORT OF BREATH/WHEEZING Atorvastatin Calcium (Lipitor -) 40 mg PO HS [facility] Last Admin: 11/09/17 22:09 Dose: 40 mg Bacitracin (Bacitracin -) 1 applic TP DAILY [facility] Last Admin: 11/09/17 14:12 Dose: 1 applic Baclofen (Lioresal -) 10 mg PO DAILY [facility] Last Admin: 11/10/17 11:02 Dose: Not Given Citalopram Hydrobromide (Celexa -) 10 mg PO DAILY [facility] Last Admin: 11/10/17 11:01 Dose: Not Given Clopidogrel Bisulfate (Plavix -) 75 mg PO DAILY [facility] Last Admin: 11/10/17 10:56 Dose: 75 mg Cyproheptadine HCl (Periactin Solution -) 2 mg PO QID [facility] Last Admin: 11/10/17 11:00 Dose: Not Given Emollient Ointment (Aquaphor -) 1 applic TP DAILY [facility] Last Admin: 11/09/17 17:55 Dose: Not Given Gabapentin (Neurontin -) 400 mg PO TID [facility] Last Admin: 11/10/17 06:14 Dose: 400 mg Ceftriaxone Sodium 1 gm/ (Dextrose) 50 mls @ 200 mls/hr IVPB DAILY@1500 [facility] PRN Reason: Protocol Last Admin: 11/09/17 16:12 Dose: 200 mls/hr Insulin Aspart (Novolog Vial Sliding Scale -) 1 vial SQ ACHS [facility] PRN Reason: Protocol Last Admin: 11/10/17 11:40 Dose: 4 units Insulin Detemir (Levemir Vial) 34 units SQ BID@0700,2200 [facility] Last Admin: 11/10/17 06:14 Dose: 34 units Lactic Acid (Lac-Hydrin 12) 1 applic TP BID [facility] Last Admin: 11/10/17 10:55 Dose: 1 applic Losartan Potassium (Cozaar -) 50 mg PO DAILY [facility] Last Admin: 11/10/17 10:56 Dose: 50 mg Methyl Salicylate ([place] -) 1 applic TP DAILY [facility] Last Admin: 11/10/17 10:56 Dose: 1 applic Montelukast Sodium (Singulair -) 10 mg PO HS [facility] Last Admin: 11/09/17 22:09 Dose: 10 mg Nystatin (Nystop Powder -) 1 applic TP TID [facility] Last Admin: 11/10/17 06:14 Dose: 1 applic Ranitidine HCl (Zantac -) 150 mg PO BID [facility] Last Admin: 11/10/17 10:55 Dose: 150 mg Tolterodine Tartrate (Detrol La -) 4 mg PO DAILY [facility] Last Admin: 11/10/17 11:02 Dose: Not Given - Objective Vital Signs: Vital Signs Temperature 98.8 F 11/10/17 10:54 Pulse Rate 60 11/10/17 10:54 Respiratory Rate 20 11/10/17 10:54 Blood Pressure 134/53 11/10/17 10:54 O2 Sat by Pulse Oximetry (%) 97 11/10/17 05:00 Constitutional: Yes: Calm, Other (awake alert family at bedside) Cardiovascular: Yes: Regular Rate and Rhythm, S1, S2 Respiratory: Yes: CTA Bilaterally Gastrointestinal: Yes: Normal Bowel Sounds, Soft Edema: No Wound/Incision: Yes: Other (left heel wound draining yellowish discharge) Labs: CBC, BMP 11/09/17 08:00 11/09/17 08:00 Problem List - Problems (1) Diabetes Assessment/Plan: insulin bgm hga1c neurontin for neuropathy losartan for proteinuria Code(s): E11.9 - TYPE 2 DIABETES MELLITUS WITHOUT COMPLICATIONS Qualifiers: Diabetes mellitus type: type 2 Diabetes mellitus complication status: with unspecified complications (2) UTI (urinary tract infection) Assessment/Plan: Microbiology 11/08/17 15:07 Urine - Urine Clean Catch Urine Culture - Final Klebsiella Pneumoniae - Esbl isolation ID follow up juan need to change abx to carbipenem ID approval needed Code(s): N39.0 - URINARY TRACT INFECTION, SITE NOT SPECIFIED Qualifiers: Urinary tract infection type: site unspecified Hematuria presence: without hematuria Qualified Code(s): N39.0 - Urinary tract infection, site not specified (3) Open wound of left heel Assessment/Plan: vascular eval Code(s): S91.302A - UNSPECIFIED OPEN WOUND, LEFT FOOT, INITIAL ENCOUNTER
[2017-11-10] MEDS ORDERED: cefTRIAXone SODIUM 1 GM VIAL ONE (14:52)
[2017-11-10] MEDS ORDERED: DEXTROSE 5%-WATER - 50 ML IVPB ONE (14:52)
[2017-11-10] MEDS: CEFTRIAXONE 1 GM in DEXTROSE 5%-WATER - 50 ML IVPB SCH (15:20)
--- NOTE | 2017-11-10 16:00 | PN ---
Progress Note (short form) - Note Progress Note: Vascular Surgery Pt seen and examined. Left heel ulcer - stage 2. clean, pink. good granulation. Pt with palpable pulses in left foot. Santyl to area. Left buttock - stage 2 ulcer. clean , pink. Santyl to area. Rene Rodgers DO
--- NOTE | 2017-11-10 16:17 | CON.ID ---
Consult Consult Specialty:: infectious diseases Referred by:: Reason for Consultation:: esbl uti - History of Present Illness History of Present Illness: This is a 72 year old female with PMHx of DM, hyperlipidemia, HTN, neuropathy, pacemaker, CVA (left residual weakness), kidney stones (s/p removal 4 months ), who presented to the with 2 weeks of suprapubic pain and dysuria. The patient reports she has had multiple UTIs in the past. She denies any hematuria, fever, chills, urgency, frequency. The patient reports she was sent in by her radiologic technology teacher today for UTI and IV abx. patients daughter n the room who is giving history patient also has wounds on the left heel and the left buttock patient seen by vascular currently patient feels better - History Source History Provided By: Patient Limitations to Obtaining History: Language Barrier - Past Medical History LEGAL ASSOCIATE: Yes: CVA Cardio/Vascular: Yes: HTN, Hyperlipdemia, Other (PPM) Endocrine: Yes: Diabetes Mellitus - Past Surgical History Past Surgical History: Yes: Permanent Pacemaker, Cholecystectomy - Alcohol/Substance Use Hx Alcohol Use: No - Smoking History Smoking history: Never smoked Have you smoked in the past 12 months: No - Social History Usual Living Arrangement: With Significant Other Home Medications - Allergies Allergies/Adverse Reactions: Allergies Allergy/AdvReac Type Severity Reaction Status Date / Time aspirin Allergy Verified 11/08/17 14:52 tramadol Allergy Verified 11/08/17 14:52 - Home Medications Home Medications: Ambulatory Orders Albuterol Sulfate [Proair Respiclick] 90 mcg IH QID 11/08/17 Ammonium Lactate Cream [Lac-Hydrin] 1 applic TP BID 11/08/17 Atorvastatin Ca [Lipitor] 40 mg PO HS 11/08/17 Baclofen 10 mg PO DAILY 11/08/17 Cholecalciferol (Vitamin D3) [Vitamin D3] 50,000 unit PO WEEKLY 11/08/17 Citalopram Hydrobromide [Celexa -] 10 mg PO DAILY 11/08/17 Clopidogrel Bisulfate [Clopidogrel] 75 mg PO DAILY 11/08/17 Cyproheptadine HCl 2 mg PO QID 11/08/17 Famotidine [Pepcid] 40 mg PO TID 11/08/17 Fesoterodine Fumarate [Toviaz] 8 mg PO DAILY 11/08/17 Gabapentin 400 mg PO TID 11/08/17 Glyburide 6 mg PO BID 11/08/17 Guaifenesin [Robitussin -] 100 mg PO TID 11/08/17 Insulin Glargine,Hum.rec.anlog [Lantus] 34 unit SQ BID 11/08/17 Insulin Lispro [Humalog] 12 unit SQ TID 11/08/17 Irbesartan [Avapro] 150 mg PO DAILY 11/08/17 Montelukast Sodium [Singulair] 10 mg PO HS 11/08/17 Nystatin Powder [Nystop Topical Powder -] 15 gm TP TID 11/08/17 Pantoprazole Sodium [Protonix -] 20 mg PO DAILY 11/08/17 Quetiapine Fumarate [Seroquel -] 50 mg PO HS 11/08/17 Review of Systems - Review of Systems Constitutional: reports: No Symptoms Eyes: reports: No Symptoms HENT: reports: No Symptoms Neck: reports: No Symptoms Cardiovascular: reports: No Symptoms Respiratory: reports: No Symptoms Gastrointestinal: reports: No Symptoms Genitourinary: reports: No Symptoms Musculoskeletal: reports: Other Integumentary: reports: No Symptoms Neurological: reports: No Symptoms Endocrine: reports: No Symptoms Hematology/Lymphatic: reports: No Symptoms Psychiatric: reports: No Symptoms Physical Exam Vital Signs: Vital Signs Temperature 98.3 F 11/10/17 14:29 Pulse Rate 62 11/10/17 14:29 Respiratory Rate 22 11/10/17 14:29 Blood Pressure 138/60 11/10/17 14:29 O2 Sat by Pulse Oximetry (%) 97 11/10/17 05:00 Constitutional: Yes: Well Nourished, No Distress, Calm Cardiovascular: Yes: Regular Rate and Rhythm Respiratory: Yes: Regular, CTA Bilaterally Gastrointestinal: Yes: Normal Bowel Sounds, Soft Musculoskeletal: Yes: Other Extremities: Yes: Other Wound/Incision: Yes: Other (stage 2 wound on left buttock,clean wound care on case) Neurological: Yes: Alert, Oriented Psychiatric: Yes: Alert, Oriented Labs: CBC, BMP 11/09/17 08:00 11/09/17 08:00 Imaging - Results Ultrasound: Report Reviewed, Image Reviewed Assessment/Plan Problem List - Problems (1) Diabetes Code(s): E11.9 - TYPE 2 DIABETES MELLITUS WITHOUT COMPLICATIONS Qualifiers: Diabetes mellitus type: type 2 Diabetes mellitus complication status: with unspecified complications (2) H/O: CVA (cerebrovascular accident) Code(s): Z86.73 - PRSNL HX OF TIA (TIA), AND CEREB INFRC W/O RESID DEFICITS (3) HTN (hypertension) Code(s): I10 - ESSENTIAL (PRIMARY) HYPERTENSION Qualifiers: Hypertension type: essential hypertension Qualified Code(s): I10 - Essential (primary) hypertension (4) Intractable abdominal pain Code(s): R10.9 - UNSPECIFIED ABDOMINAL PAIN (5) Pacemaker Code(s): Z95.0 - PRESENCE OF CARDIAC PACEMAKER (6) UTI (urinary tract infection) Code(s): N39.0 - URINARY TRACT INFECTION, SITE NOT SPECIFIED Qualifiers: Urinary tract infection type: site unspecified Hematuria presence: without hematuria Qualified Code(s): N39.0 - Urinary tract infection, site not specified urine cx noted plan patient will need abx for 2 weeks continue current mgmt wound care rest as per the team will see wound on the heel
[2017-11-10] MEDS: COLLAGENASE CLOSTRIDIUM HIST. 30 GRAMS TUBE TP SCH (18:30)
[2017-11-10] MEDS: MINERAL OIL/PET HY-PHL TOPICAL OINTMENT 454 GM JAR TP SCH (18:31)
[2017-11-10] MEDS: ERTAPENEM SODIUM 1 GM in SODIUM CHLORIDE 50 ML IVPB SCH (18:32)
[2017-11-10] MEDS: ATORVASTATIN CA 40 MG TABLET (FP) PO SCH (22:30)
[2017-11-10] MEDS: MONTELUKAST NA 10 MG TABLET PO SCH (22:30)
[2017-11-11] MEDS: GABAPENTIN 400 MG CAPSULE (FP) PO SCH ×3 (06:16→21:51)
[2017-11-11] MEDS: NYSTATIN POWDER 100,000 UNITS/GM - 15 GM TOPICAL POWDER TP SCH ×3 (06:16→21:49)
[2017-11-11] MEDS: INSULIN (LEVEMIR) 100 UNITS/ML UNITS SQ SCH ×2 (06:16→21:50)
[2017-11-11] MEDS: INSULIN SLIDING SCALE (NOVOLOG) 1 VIAL SQ SCH ×4 (06:17→21:50)
[2017-11-11 07:08] VITALS: BMI 37.0
[2017-11-11 08:30] LABS: BASO % 0.9 % (0-2.0); EOS % 3.5 % (0-4.5); HEMATOCRIT 34.7 % (32.4-45.2); HEMOGLOBIN 12.1 GM/dL (10.7-15.3); LYMPH % 24.3 % (8-40); MCH 30.2 pg (25.7-33.7); MCHC 34.9 g/dl (32.0-36.0); MEAN CELL VOLUME 86.6 fl (80-96); MEAN PLT VOLUME 8.2 fl (7.5-11.1); MONO % 8.5 % (3.8-10.2); NEUT % 62.8 % (42.8-82.8); PLATELET COUNT 177 K/MM3 (134-434); RDW 13.1 % (11.6-15.6); WHITE BLOOD COUNT 7.9 K/mm3 (4.0-10.0)
[2017-11-11 09:09] LABS: ALBUMIN 3.3 g/dl (3.4-5.0); ANION GAP 7 (8-16); BILIRUBIN,TOTAL 0.4 mg/dL (0.2-1.0); BLOOD UREA NITROGEN 16 mg/dL (7-18); CALCIUM 9.2 mg/dL (8.5-10.1); CHLORIDE 106 mmol/L (98-107); CO2 26 mmol/L (21-32); CREATININE 1.1 mg/dL (0.55-1.02); GLUCOSE,RANDOM 198 mg/dL (74-106); SGOT/AST 9 U/L (15-37); SGPT/ALT 16 U/L (12-78); SODIUM 139 mmol/L (136-145); TOT PROT 6.6 g/dl (6.4-8.2)
[2017-11-11 09:10] LABS: ALK PHOS 103 U/L (45-117)
[2017-11-11] MEDS ORDERED: PT OWN MED DRAWER 7, Y5N ONE (09:33)
[2017-11-11] MEDS: MINERAL OIL/PET HY-PHL TOPICAL OINTMENT 454 GM JAR TP SCH (10:01)
[2017-11-11] MEDS: METHYL SALICYLATE/MENTHOL OINT 30 GM TUBE TP SCH ×2 (10:01→10:12)
[2017-11-11] MEDS: ERTAPENEM SODIUM 1 GM in SODIUM CHLORIDE 50 ML IVPB SCH (10:02)
[2017-11-11] MEDS: AMMONIUM LACTATE 12% LOTION 225 GM BOTTLE TP SCH ×3 (10:02→21:50)
[2017-11-11] MEDS: RANITIDINE HCL 150 MG TABLET (FP) PO SCH ×2 (10:03→21:51)
[2017-11-11] MEDS: BACLOFEN 10 MG TABLET (FP) PO SCH (10:03)
[2017-11-11] MEDS: CYPROHEPTADINE HYDROCHLORIDE 2 MG/5 ML SOLUTION PO SCH ×5 (10:03→21:51)
[2017-11-11] MEDS: CLOPIDOGREL BISULFATE 75 MG TABLET (FP) PO SCH (10:03)
[2017-11-11] MEDS: CITALOPRAM HYDROBROMIDE 10 MG TABLET (FP) PO SCH (10:03)
[2017-11-11] MEDS: LOSARTAN POTASSIUM 50 MG TABLET (FP) PO SCH (10:03)
[2017-11-11] MEDS: COLLAGENASE CLOSTRIDIUM HIST. 30 GRAMS TUBE TP SCH (10:04)
[2017-11-11] MEDS: TOLTERODINE TARTRATE LA 4 MG CAP.SR.24H (FP) PO SCH (10:46)
--- NOTE | 2017-11-11 15:03 | PN ---
Progress Note, Physician History of Present Illness: patient stable no new issues - Current Medication List Current Medications: Active Medications Albuterol Sulfate (Ventolin 0.083% Nebulizer Soln -) 1 amp NEB Q6H PRN PRN Reason: SHORT OF BREATH/WHEEZING Last Admin: 11/10/17 20:55 Dose: 1 amp Atorvastatin Calcium (Lipitor -) 40 mg PO HS [facility] Last Admin: 11/10/17 22:30 Dose: 40 mg Baclofen (Lioresal -) 10 mg PO DAILY [facility] Last Admin: 11/11/17 10:03 Dose: 10 mg Citalopram Hydrobromide (Celexa -) 10 mg PO DAILY [facility] Last Admin: 11/11/17 10:03 Dose: 10 mg Clopidogrel Bisulfate (Plavix -) 75 mg PO DAILY [facility] Last Admin: 11/11/17 10:03 Dose: 75 mg Collagenase (Santyl -) 1 applic TP DAILY [facility] Last Admin: 11/11/17 10:04 Dose: 1 applic Cyproheptadine HCl (Periactin Solution -) 2 mg PO QID [facility] Last Admin: 11/11/17 13:20 Dose: Not Given Emollient Ointment (Aquaphor -) 1 applic TP DAILY [facility] Last Admin: 11/11/17 10:01 Dose: 1 applic Gabapentin (Neurontin -) 400 mg PO TID [facility] Last Admin: 11/11/17 13:21 Dose: 400 mg Ertapenem 1 gm/ Sodium (Chloride) 50 mls @ 50 mls/hr IVPB DAILY [facility] PRN Reason: Protocol Last Admin: 11/11/17 10:02 Dose: 50 mls/hr Insulin Aspart (Novolog Vial Sliding Scale -) 1 vial SQ ACHS [facility] PRN Reason: Protocol Last Admin: 11/11/17 12:28 Dose: 6 units Insulin Detemir (Levemir Vial) 34 units SQ BID@0700,2200 [facility] Last Admin: 11/11/17 06:16 Dose: 34 units Lactic Acid (Lac-Hydrin 12) 1 applic TP BID [facility] Last Admin: 11/11/17 10:13 Dose: Not Given Losartan Potassium (Cozaar -) 50 mg PO DAILY [facility] Last Admin: 11/11/17 10:03 Dose: 50 mg Methyl Salicylate ([place] -) 1 applic TP DAILY [facility] Last Admin: 11/11/17 10:12 Dose: Not Given Montelukast Sodium (Singulair -) 10 mg PO HS [facility] Last Admin: 11/10/17 22:30 Dose: 10 mg Nystatin (Nystop Powder -) 1 applic TP TID [facility] Last Admin: 11/11/17 13:21 Dose: 1 applic Ranitidine HCl (Zantac -) 150 mg PO BID [facility] Last Admin: 11/11/17 10:03 Dose: 150 mg Tolterodine Tartrate (Detrol La -) 4 mg PO DAILY [facility] Last Admin: 11/11/17 10:46 Dose: 4 mg - Objective Vital Signs: Vital Signs Temperature 98.1 F 11/11/17 11:00 Pulse Rate 60 11/11/17 11:00 Respiratory Rate 20 11/11/17 11:00 Blood Pressure 154/72 11/11/17 11:00 O2 Sat by Pulse Oximetry (%) 98 11/11/17 10:00 Constitutional: Yes: No Distress, Calm Cardiovascular: Yes: Regular Rate and Rhythm Respiratory: Yes: Regular, CTA Bilaterally Gastrointestinal: Yes: Normal Bowel Sounds, Soft Musculoskeletal: Yes: WNL Extremities: Yes: WNL Neurological: Yes: Alert Psychiatric: Yes: Alert Labs: CBC, BMP 11/11/17 08:10 11/11/17 08:10 Assessment/Plan Problem List - Problems (1) Diabetes Code(s): E11.9 - TYPE 2 DIABETES MELLITUS WITHOUT COMPLICATIONS Qualifiers: Diabetes mellitus type: type 2 Diabetes mellitus complication status: with unspecified complications (2) H/O: CVA (cerebrovascular accident) Code(s): Z86.73 - PRSNL HX OF TIA (TIA), AND CEREB INFRC W/O RESID DEFICITS (3) HTN (hypertension) Code(s): I10 - ESSENTIAL (PRIMARY) HYPERTENSION Qualifiers: Hypertension type: essential hypertension Qualified Code(s): I10 - Essential (primary) hypertension (4) Intractable abdominal pain Code(s): R10.9 - UNSPECIFIED ABDOMINAL PAIN (5) Pacemaker Code(s): Z95.0 - PRESENCE OF CARDIAC PACEMAKER (6) UTI (urinary tract infection) Code(s): N39.0 - URINARY TRACT INFECTION, SITE NOT SPECIFIED Qualifiers: Urinary tract infection type: site unspecified Hematuria presence: without hematuria Qualified Code(s): N39.0 - Urinary tract infection, site not specified urine cx noted plan patient will need abx for 2 weeks continue current mgmt wound care rest as per the team
--- NOTE | 2017-11-11 15:37 | PN ---
Progress Note, Physician Chief Complaint: patiet seen and examined on iv abx and contact isolation will need 2 weeks iv abx picc line will be needed and then possible snf placement today dysuria has improved - Current Medication List Current Medications: Active Medications Albuterol Sulfate (Ventolin 0.083% Nebulizer Soln -) 1 amp NEB Q6H PRN PRN Reason: SHORT OF BREATH/WHEEZING Last Admin: 11/10/17 20:55 Dose: 1 amp Atorvastatin Calcium (Lipitor -) 40 mg PO HS [facility] Last Admin: 11/10/17 22:30 Dose: 40 mg Baclofen (Lioresal -) 10 mg PO DAILY [facility] Last Admin: 11/11/17 10:03 Dose: 10 mg Citalopram Hydrobromide (Celexa -) 10 mg PO DAILY [facility] Last Admin: 11/11/17 10:03 Dose: 10 mg Clopidogrel Bisulfate (Plavix -) 75 mg PO DAILY [facility] Last Admin: 11/11/17 10:03 Dose: 75 mg Collagenase (Santyl -) 1 applic TP DAILY [facility] Last Admin: 11/11/17 10:04 Dose: 1 applic Cyproheptadine HCl (Periactin Solution -) 2 mg PO QID [facility] Last Admin: 11/11/17 13:20 Dose: Not Given Emollient Ointment (Aquaphor -) 1 applic TP DAILY [facility] Last Admin: 11/11/17 10:01 Dose: 1 applic Gabapentin (Neurontin -) 400 mg PO TID [facility] Last Admin: 11/11/17 13:21 Dose: 400 mg Ertapenem 1 gm/ Sodium (Chloride) 50 mls @ 50 mls/hr IVPB DAILY [facility] PRN Reason: Protocol Last Admin: 11/11/17 10:02 Dose: 50 mls/hr Insulin Aspart (Novolog Vial Sliding Scale -) 1 vial SQ ACHS [facility] PRN Reason: Protocol Last Admin: 11/11/17 12:28 Dose: 6 units Insulin Detemir (Levemir Vial) 34 units SQ BID@0700,2200 [facility] Last Admin: 11/11/17 06:16 Dose: 34 units Lactic Acid (Lac-Hydrin 12) 1 applic TP BID [facility] Last Admin: 11/11/17 10:13 Dose: Not Given Losartan Potassium (Cozaar -) 50 mg PO DAILY [facility] Last Admin: 11/11/17 10:03 Dose: 50 mg Methyl Salicylate ([place] -) 1 applic TP DAILY [facility] Last Admin: 11/11/17 10:12 Dose: Not Given Montelukast Sodium (Singulair -) 10 mg PO HS [facility] Last Admin: 11/10/17 22:30 Dose: 10 mg Nystatin (Nystop Powder -) 1 applic TP TID [facility] Last Admin: 11/11/17 13:21 Dose: 1 applic Ranitidine HCl (Zantac -) 150 mg PO BID [facility] Last Admin: 11/11/17 10:03 Dose: 150 mg Tolterodine Tartrate (Detrol La -) 4 mg PO DAILY [facility] Last Admin: 11/11/17 10:46 Dose: 4 mg - Objective Vital Signs: Vital Signs Temperature 98.4 F 11/11/17 14:31 Pulse Rate 63 11/11/17 14:31 Respiratory Rate 18 11/11/17 14:31 Blood Pressure 137/65 11/11/17 14:31 O2 Sat by Pulse Oximetry (%) 98 11/11/17 10:00 Constitutional: Yes: Calm Neck: Yes: Trachea Midline Cardiovascular: Yes: Regular Rate and Rhythm, S1, S2 Respiratory: Yes: CTA Bilaterally Gastrointestinal: Yes: Normal Bowel Sounds, Soft Neurological: Yes: Alert, Oriented Labs: CBC, BMP 11/11/17 08:10 11/11/17 08:10 Problem List - Problems (1) Diabetes Assessment/Plan: insulin bgm hga1c 8.5 neurontin for neuropathy losartan for proteinuria Code(s): E11.9 - TYPE 2 DIABETES MELLITUS WITHOUT COMPLICATIONS Qualifiers: Diabetes mellitus type: type 2 Diabetes mellitus complication status: with unspecified complications (2) UTI (urinary tract infection) Assessment/Plan: Microbiology 11/08/17 15:07 Urine - Urine Clean Catch Urine Culture - Final Klebsiella Pneumoniae - Esbl isolation ID follow up juan need to change abx to carbipenem picc line 2 week of iv abx Code(s): N39.0 - URINARY TRACT INFECTION, SITE NOT SPECIFIED Qualifiers: Urinary tract infection type: site unspecified Hematuria presence: without hematuria Qualified Code(s): N39.0 - Urinary tract infection, site not specified (3) Open wound of left heel Assessment/Plan: vascular eval noted stage 2 on heel- collagenase Code(s): S91.302A - UNSPECIFIED OPEN WOUND, LEFT FOOT, INITIAL ENCOUNTER
[2017-11-11] MEDS ORDERED: PICC LINE 8 ML FLUSH PROTOCOL IVPUSH PRN (15:38)
[2017-11-11] MEDS: ATORVASTATIN CA 40 MG TABLET (FP) PO SCH (21:51)
[2017-11-11] MEDS: MONTELUKAST NA 10 MG TABLET PO SCH (21:51)
[2017-11-12] MEDS: NYSTATIN POWDER 100,000 UNITS/GM - 15 GM TOPICAL POWDER TP SCH ×3 (06:20→22:57)
[2017-11-12] MEDS: GABAPENTIN 400 MG CAPSULE (FP) PO SCH ×3 (06:21→22:56)
[2017-11-12] MEDS: INSULIN SLIDING SCALE (NOVOLOG) 1 VIAL SQ SCH ×4 (06:21→23:05)
[2017-11-12] MEDS: INSULIN (LEVEMIR) 100 UNITS/ML UNITS SQ SCH ×2 (06:21→22:56)
[2017-11-12] MEDS ORDERED: PT OWN MED DRAWER 7, Y5N ONE ×7 (10:39→23:23)
[2017-11-12] MEDS: RANITIDINE HCL 150 MG TABLET (FP) PO SCH ×2 (10:49→22:56)
[2017-11-12] MEDS: LOSARTAN POTASSIUM 50 MG TABLET (FP) PO SCH (10:49)
[2017-11-12] MEDS: CITALOPRAM HYDROBROMIDE 10 MG TABLET (FP) PO SCH (10:49)
[2017-11-12] MEDS: CLOPIDOGREL BISULFATE 75 MG TABLET (FP) PO SCH (10:49)
[2017-11-12] MEDS: BACLOFEN 10 MG TABLET (FP) PO SCH (10:49)
[2017-11-12] MEDS: METHYL SALICYLATE/MENTHOL OINT 30 GM TUBE TP SCH (10:49)
[2017-11-12] MEDS: ERTAPENEM SODIUM 1 GM in SODIUM CHLORIDE 50 ML IVPB SCH (10:59)
[2017-11-12] MEDS: AMMONIUM LACTATE 12% LOTION 225 GM BOTTLE TP SCH ×2 (11:06→22:53)
[2017-11-12] MEDS: TOLTERODINE TARTRATE LA 4 MG CAP.SR.24H (FP) PO SCH (11:06)
[2017-11-12] MEDS: CYPROHEPTADINE HYDROCHLORIDE 2 MG/5 ML SOLUTION PO SCH ×4 (11:07→22:58)
--- NOTE | 2017-11-12 12:31 | PN ---
Progress Note, Physician Chief Complaint: UTI History of Present Illness: NAD dysuria improved Seen by ID on IV ertapenum via PICC - Current Medication List Current Medications: Active Medications Albuterol Sulfate (Ventolin 0.083% Nebulizer Soln -) 1 amp NEB Q6H PRN PRN Reason: SHORT OF BREATH/WHEEZING Last Admin: 11/10/17 20:55 Dose: 1 amp Atorvastatin Calcium (Lipitor -) 40 mg PO HS [facility] Last Admin: 11/11/17 21:51 Dose: 40 mg Baclofen (Lioresal -) 10 mg PO DAILY [facility] Last Admin: 11/12/17 10:49 Dose: 10 mg Citalopram Hydrobromide (Celexa -) 10 mg PO DAILY [facility] Last Admin: 11/12/17 10:49 Dose: 10 mg Clopidogrel Bisulfate (Plavix -) 75 mg PO DAILY [facility] Last Admin: 11/12/17 10:49 Dose: 75 mg Collagenase (Santyl -) 1 applic TP DAILY [facility] Last Admin: 11/11/17 10:04 Dose: 1 applic Cyproheptadine HCl (Periactin Solution -) 2 mg PO QID [facility] Last Admin: 11/12/17 11:07 Dose: Not Given Emollient Ointment (Aquaphor -) 1 applic TP DAILY [facility] Last Admin: 11/11/17 10:01 Dose: 1 applic Gabapentin (Neurontin -) 400 mg PO TID [facility] Last Admin: 11/12/17 06:21 Dose: 400 mg IV Flush (Picc Line Flush) 8 ml IVPUSH PRN PRN PRN Reason: Protocol Ertapenem 1 gm/ Sodium (Chloride) 50 mls @ 50 mls/hr IVPB DAILY [facility] PRN Reason: Protocol Last Admin: 11/12/17 10:59 Dose: Not Given Insulin Aspart (Novolog Vial Sliding Scale -) 1 vial SQ ACHS [facility] PRN Reason: Protocol Last Admin: 11/12/17 11:41 Dose: 10 units Insulin Detemir (Levemir Vial) 34 units SQ BID@0700,2200 [facility] Last Admin: 11/12/17 06:21 Dose: 34 units Lactic Acid (Lac-Hydrin 12) 1 applic TP BID [facility] Last Admin: 11/12/17 11:06 Dose: 1 applic Losartan Potassium (Cozaar -) 100 mg PO DAILY [facility] Last Admin: 11/12/17 10:49 Dose: 100 mg Methyl Salicylate ([place] -) 1 applic TP DAILY [facility] Last Admin: 11/12/17 10:49 Dose: 1 applic Montelukast Sodium (Singulair -) 10 mg PO HS [facility] Last Admin: 11/11/17 21:51 Dose: 10 mg Nystatin (Nystop Powder -) 1 applic TP TID [facility] Last Admin: 11/12/17 06:20 Dose: 1 applic Ranitidine HCl (Zantac -) 150 mg PO BID [facility] Last Admin: 11/12/17 10:49 Dose: 150 mg Tolterodine Tartrate (Detrol La -) 4 mg PO DAILY [facility] Last Admin: 11/12/17 11:06 Dose: 4 mg - Objective Vital Signs: Vital Signs Temperature 98.1 F 11/12/17 10:47 Pulse Rate 63 11/12/17 10:47 Respiratory Rate 20 11/12/17 10:47 Blood Pressure 129/57 11/12/17 10:47 O2 Sat by Pulse Oximetry (%) 98 11/11/17 21:00 Constitutional: Yes: Well Nourished, No Distress, Calm Cardiovascular: Yes: Regular Rate and Rhythm Respiratory: Yes: Regular Gastrointestinal: Yes: Normal Bowel Sounds, Soft Musculoskeletal: Yes: WNL Extremities: Yes: WNL Edema: No Peripheral Pulses WNL: Yes Neurological: Yes: Alert, Oriented Psychiatric: Yes: Alert, Oriented Labs: CBC, BMP 11/11/17 08:10 11/11/17 08:10 Problem List - Problems (1) Open wound of left heel Assessment/Plan: -seen by Vascular surgery -wound care -ID consult Code(s): S91.302A - UNSPECIFIED OPEN WOUND, LEFT FOOT, INITIAL ENCOUNTER (2) Diabetes Assessment/Plan: A1C 8.5% -BGM -Diabetic diet -Insulin sliding scale -Insulin long acting Code(s): E11.9 - TYPE 2 DIABETES MELLITUS WITHOUT COMPLICATIONS Qualifiers: Diabetes mellitus type: type 2 Diabetes mellitus complication status: with unspecified complications (3) UTI (urinary tract infection) Assessment/Plan: -ID on board -IV abx -UC: Microbiology 11/14/17 18:00 Stool Clostridium difficile Antigen (NOREEN) - Final 11/14/17 18:00 Stool Clostridium difficile Toxin Assay - Final 11/08/17 14:40 Blood - Peripheral Venous Blood Culture - Final NO GROWTH AFTER 5 DAYS INCUBATION 11/08/17 14:40 Blood - Peripheral Venous Blood Culture - Final NO GROWTH AFTER 5 DAYS INCUBATION 11/08/17 15:07 Urine - Urine Clean Catch Urine Culture - Final Klebsiella Pneumoniae - Esbl Code(s): N39.0 - URINARY TRACT INFECTION, SITE NOT SPECIFIED Qualifiers: Urinary tract infection type: site unspecified Hematuria presence: without hematuria Qualified Code(s): N39.0 - Urinary tract infection, site not specified Assessment/Plan see problem list
[2017-11-12] MEDS ORDERED: ERTAPENEM SODIUM 1 GM VIAL IM ONE ×2 (13:47→19:30)
--- NOTE | 2017-11-12 13:56 | PN ---
Progress Note, Physician History of Present Illness: Pt alert, afebrile. Has some dysuria but denies lower abd/flank pain. No IV access today despite several attempts. - Current Medication List Current Medications: Active Medications Albuterol Sulfate (Ventolin 0.083% Nebulizer Soln -) 1 amp NEB Q6H PRN PRN Reason: SHORT OF BREATH/WHEEZING Last Admin: 11/10/17 20:55 Dose: 1 amp Atorvastatin Calcium (Lipitor -) 40 mg PO HS [facility] Last Admin: 11/11/17 21:51 Dose: 40 mg Baclofen (Lioresal -) 10 mg PO DAILY [facility] Last Admin: 11/12/17 10:49 Dose: 10 mg Citalopram Hydrobromide (Celexa -) 10 mg PO DAILY [facility] Last Admin: 11/12/17 10:49 Dose: 10 mg Clopidogrel Bisulfate (Plavix -) 75 mg PO DAILY [facility] Last Admin: 11/12/17 10:49 Dose: 75 mg Collagenase (Santyl -) 1 applic TP DAILY [facility] Last Admin: 11/11/17 10:04 Dose: 1 applic Cyproheptadine HCl (Periactin Solution -) 2 mg PO QID [facility] Last Admin: 11/12/17 11:07 Dose: Not Given Emollient Ointment (Aquaphor -) 1 applic TP DAILY [facility] Last Admin: 11/11/17 10:01 Dose: 1 applic Ertapenem (Invanz -) 1 gm IM ONCE ONE PRN Reason: Protocol Stop: 11/12/17 13:48 Gabapentin (Neurontin -) 400 mg PO TID [facility] Last Admin: 11/12/17 06:21 Dose: 400 mg IV Flush (Picc Line Flush) 8 ml IVPUSH PRN PRN PRN Reason: Protocol Insulin Aspart (Novolog Vial Sliding Scale -) 1 vial SQ ACHS [facility] PRN Reason: Protocol Insulin Detemir (Levemir Vial) 36 units SQ BID@0700,2200 [facility] Lactic Acid (Lac-Hydrin 12) 1 applic TP BID [facility] Last Admin: 11/12/17 11:06 Dose: 1 applic Losartan Potassium (Cozaar -) 100 mg PO DAILY [facility] Last Admin: 11/12/17 10:49 Dose: 100 mg Methyl Salicylate ([place] -) 1 applic TP DAILY [facility] Last Admin: 11/12/17 10:49 Dose: 1 applic Montelukast Sodium (Singulair -) 10 mg PO HS [facility] Last Admin: 11/11/17 21:51 Dose: 10 mg Nystatin (Nystop Powder -) 1 applic TP TID [facility] Last Admin: 11/12/17 06:20 Dose: 1 applic Ranitidine HCl (Zantac -) 150 mg PO BID [facility] Last Admin: 11/12/17 10:49 Dose: 150 mg Tolterodine Tartrate (Detrol La -) 4 mg PO DAILY [facility] Last Admin: 11/12/17 11:06 Dose: 4 mg - Objective Vital Signs: Vital Signs Temperature 98.1 F 11/12/17 10:47 Pulse Rate 63 11/12/17 10:47 Respiratory Rate 20 11/12/17 10:47 Blood Pressure 129/57 11/12/17 10:47 O2 Sat by Pulse Oximetry (%) 98 11/11/17 21:00 Constitutional: Yes: No Distress, Calm Cardiovascular: Yes: Regular Rate and Rhythm Respiratory: Yes: Regular Gastrointestinal: Yes: Normal Bowel Sounds, Soft Genitourinary: Yes: WNL Extremities: Yes: WNL Wound/Incision: Yes: Dressing Dry and Intact (Lt foot) Neurological: Yes: Alert, Oriented Labs: CBC, BMP 11/11/17 08:10 11/11/17 08:10 Microbiology 11/08/17 14:40 Blood - Peripheral Venous Blood Culture - Preliminary NO GROWTH OBTAINED AFTER 72 HOURS, INCUBATION TO CONTINUE FOR 2 DAYS. 11/08/17 14:40 Blood - Peripheral Venous Blood Culture - Preliminary NO GROWTH OBTAINED AFTER 72 HOURS, INCUBATION TO CONTINUE FOR 2 DAYS. 11/08/17 15:07 Urine - Urine Clean Catch Urine Culture - Final Klebsiella Pneumoniae - Esbl Problem List - Problems (1) Diabetes Code(s): E11.9 - TYPE 2 DIABETES MELLITUS WITHOUT COMPLICATIONS Qualifiers: Diabetes mellitus type: type 2 Diabetes mellitus complication status: with unspecified complications (2) H/O: CVA (cerebrovascular accident) Code(s): Z86.73 - PRSNL HX OF TIA (TIA), AND CEREB INFRC W/O RESID DEFICITS (3) HTN (hypertension) Code(s): I10 - ESSENTIAL (PRIMARY) HYPERTENSION Qualifiers: Hypertension type: essential hypertension Qualified Code(s): I10 - Essential (primary) hypertension (4) Pacemaker Code(s): Z95.0 - PRESENCE OF CARDIAC PACEMAKER (5) Renal calculus, right Code(s): N20.0 - CALCULUS OF KIDNEY (6) UTI (urinary tract infection) Code(s): N39.0 - URINARY TRACT INFECTION, SITE NOT SPECIFIED Qualifiers: Urinary tract infection type: site unspecified Hematuria presence: without hematuria Qualified Code(s): N39.0 - Urinary tract infection, site not specified Assessment/Plan 72 y.o. female with PMH of DM, nephrolithiasis s/p stone removal, previous UTIs , CVA, s/p PPM presenting with c/o dysuria and suprapubic pain. Still with some dysuria ESBL Klebsiella UTI - no current IV access - Invanz IM daily until PICC placed, then resume IV - contact precautions
[2017-11-12] MEDS: MINERAL OIL/PET HY-PHL TOPICAL OINTMENT 454 GM JAR TP SCH (14:00)
[2017-11-12] MEDS: COLLAGENASE CLOSTRIDIUM HIST. 30 GRAMS TUBE TP SCH (16:00)
[2017-11-12] MEDS ORDERED: INSULIN (NOVOLOG) ASPART 100 UNITS/ML 10ML VIAL ONE ×2 (16:59→17:45)
[2017-11-12] MEDS: MONTELUKAST NA 10 MG TABLET PO SCH (22:56)
[2017-11-12] MEDS: ATORVASTATIN CA 40 MG TABLET (FP) PO SCH (22:56)
[2017-11-13] MEDS: GABAPENTIN 400 MG CAPSULE (FP) PO SCH ×3 (06:20→22:34)
[2017-11-13] MEDS: NYSTATIN POWDER 100,000 UNITS/GM - 15 GM TOPICAL POWDER TP SCH ×3 (06:21→22:34)
[2017-11-13] MEDS: INSULIN (LEVEMIR) 100 UNITS/ML UNITS SQ SCH ×2 (06:32→22:55)
[2017-11-13] MEDS: INSULIN SLIDING SCALE (NOVOLOG) 1 VIAL SQ SCH ×4 (06:40→22:54)
--- NOTE | 2017-11-13 09:40 | PN ---
Progress Note, Physician Chief Complaint: UTI History of Present Illness: NAD dysuria iproved Seen by ID on IV ertapenum via PICC - Current Medication List Current Medications: Active Medications Albuterol Sulfate (Ventolin 0.083% Nebulizer Soln -) 1 amp NEB Q6H PRN PRN Reason: SHORT OF BREATH/WHEEZING Last Admin: 11/10/17 20:55 Dose: 1 amp Atorvastatin Calcium (Lipitor -) 40 mg PO HS [facility] Last Admin: 11/12/17 22:56 Dose: 40 mg Baclofen (Lioresal -) 10 mg PO DAILY [facility] Last Admin: 11/12/17 10:49 Dose: 10 mg Citalopram Hydrobromide (Celexa -) 10 mg PO DAILY [facility] Last Admin: 11/12/17 10:49 Dose: 10 mg Clopidogrel Bisulfate (Plavix -) 75 mg PO DAILY [facility] Last Admin: 11/12/17 10:49 Dose: 75 mg Collagenase (Santyl -) 1 applic TP DAILY [facility] Last Admin: 11/12/17 16:00 Dose: 1 applic Cyproheptadine HCl (Periactin Solution -) 2 mg PO QID [facility] Last Admin: 11/12/17 22:58 Dose: Not Given Emollient Ointment (Aquaphor -) 1 applic TP DAILY [facility] Last Admin: 11/12/17 14:00 Dose: 1 applic Gabapentin (Neurontin -) 400 mg PO TID [facility] Last Admin: 11/13/17 06:20 Dose: 400 mg IV Flush (Picc Line Flush) 8 ml IVPUSH PRN PRN PRN Reason: Protocol Insulin Aspart (Novolog Vial Sliding Scale -) 1 vial SQ ACHS [facility] PRN Reason: Protocol Last Admin: 11/13/17 06:40 Dose: 4 units Insulin Detemir (Levemir Vial) 36 units SQ BID@0700,2200 [facility] Last Admin: 11/13/17 06:32 Dose: 36 units Lactic Acid (Lac-Hydrin 12) 1 applic TP BID [facility] Last Admin: 11/12/17 22:53 Dose: 1 applic Losartan Potassium (Cozaar -) 100 mg PO DAILY [facility] Last Admin: 11/12/17 10:49 Dose: 100 mg Methyl Salicylate ([place] -) 1 applic TP DAILY [facility] Last Admin: 11/12/17 10:49 Dose: 1 applic Montelukast Sodium (Singulair -) 10 mg PO HS [facility] Last Admin: 11/12/17 22:56 Dose: 10 mg Nystatin (Nystop Powder -) 1 applic TP TID [facility] Last Admin: 11/13/17 06:21 Dose: 1 applic Ranitidine HCl (Zantac -) 150 mg PO BID [facility] Last Admin: 11/12/17 22:56 Dose: 150 mg Tolterodine Tartrate (Detrol La -) 4 mg PO DAILY [facility] Last Admin: 11/12/17 11:06 Dose: 4 mg - Objective Vital Signs: Vital Signs Temperature 98.1 F 11/13/17 05:00 Pulse Rate 62 11/13/17 05:00 Respiratory Rate 20 11/13/17 05:00 Blood Pressure 152/77 11/13/17 05:00 O2 Sat by Pulse Oximetry (%) 97 11/12/17 21:00 Constitutional: Yes: Well Nourished, No Distress, Calm Cardiovascular: Yes: Regular Rate and Rhythm Respiratory: Yes: Regular Gastrointestinal: Yes: Normal Bowel Sounds, Soft Musculoskeletal: Yes: WNL Extremities: Yes: WNL Edema: No Peripheral Pulses WNL: Yes Neurological: Yes: Alert, Oriented Psychiatric: Yes: Alert, Oriented Labs: CBC, BMP 11/11/17 08:10 11/11/17 08:10 Problem List - Problems (1) Open wound of left heel Assessment/Plan: -seen by Vascular surgery -wound care -ID consult Code(s): S91.302A - UNSPECIFIED OPEN WOUND, LEFT FOOT, INITIAL ENCOUNTER (2) Diabetes Assessment/Plan: A1C 8.5% -BGM -Diabetic diet -Insulin sliding scale -Insulin long acting Code(s): E11.9 - TYPE 2 DIABETES MELLITUS WITHOUT COMPLICATIONS Qualifiers: Diabetes mellitus type: type 2 Diabetes mellitus complication status: with unspecified complications (3) UTI (urinary tract infection) Assessment/Plan: -ID on board -IV abx -UC: Microbiology 11/14/17 18:00 Stool Clostridium difficile Antigen (NOREEN) - Final 11/14/17 18:00 Stool Clostridium difficile Toxin Assay - Final 11/08/17 14:40 Blood - Peripheral Venous Blood Culture - Final NO GROWTH AFTER 5 DAYS INCUBATION 11/08/17 14:40 Blood - Peripheral Venous Blood Culture - Final NO GROWTH AFTER 5 DAYS INCUBATION 11/08/17 15:07 Urine - Urine Clean Catch Urine Culture - Final Klebsiella Pneumoniae - Esbl Code(s): N39.0 - URINARY TRACT INFECTION, SITE NOT SPECIFIED Qualifiers: Urinary tract infection type: site unspecified Hematuria presence: without hematuria Qualified Code(s): N39.0 - Urinary tract infection, site not specified Assessment/Plan see problem list
[2017-11-13] MEDS ORDERED: PT OWN MED DRAWER 7, Y5N ONE ×5 (10:28→22:26)
[2017-11-13] MEDS: LOSARTAN POTASSIUM 50 MG TABLET (FP) PO SCH (10:51)
[2017-11-13] MEDS: BACLOFEN 10 MG TABLET (FP) PO SCH (10:51)
[2017-11-13] MEDS: CITALOPRAM HYDROBROMIDE 10 MG TABLET (FP) PO SCH (10:51)
[2017-11-13] MEDS: RANITIDINE HCL 150 MG TABLET (FP) PO SCH ×2 (10:51→22:34)
[2017-11-13] MEDS: CLOPIDOGREL BISULFATE 75 MG TABLET (FP) PO SCH (10:51)
[2017-11-13] MEDS: TOLTERODINE TARTRATE LA 4 MG CAP.SR.24H (FP) PO SCH (10:52)
[2017-11-13] MEDS: CYPROHEPTADINE HYDROCHLORIDE 2 MG/5 ML SOLUTION PO SCH (10:53)
[2017-11-13] MEDS: METHYL SALICYLATE/MENTHOL OINT 30 GM TUBE TP SCH (10:53)
[2017-11-13] MEDS: AMMONIUM LACTATE 12% LOTION 225 GM BOTTLE TP SCH ×2 (10:54→22:34)
[2017-11-13] MEDS ORDERED: INSULIN (NOVOLOG) ASPART 100 UNITS/ML 10ML VIAL ONE ×3 (11:14→17:19)
--- NOTE | 2017-11-13 13:24 | PN ---
Progress Note, Physician History of Present Illness: Pt states she feels better. Denies lower abd/suprapubic pain, dysuria. Remains afebrile. - Current Medication List Current Medications: Active Medications Albuterol Sulfate (Ventolin 0.083% Nebulizer Soln -) 1 amp NEB Q6H PRN PRN Reason: SHORT OF BREATH/WHEEZING Last Admin: 11/10/17 20:55 Dose: 1 amp Atorvastatin Calcium (Lipitor -) 40 mg PO HS [facility] Last Admin: 11/12/17 22:56 Dose: 40 mg Baclofen (Lioresal -) 10 mg PO DAILY [facility] Last Admin: 11/13/17 10:51 Dose: 10 mg Citalopram Hydrobromide (Celexa -) 10 mg PO DAILY [facility] Last Admin: 11/13/17 10:51 Dose: 10 mg Clopidogrel Bisulfate (Plavix -) 75 mg PO DAILY [facility] Last Admin: 11/13/17 10:51 Dose: 75 mg Collagenase (Santyl -) 1 applic TP DAILY [facility] Last Admin: 11/12/17 16:00 Dose: 1 applic Emollient Ointment (Aquaphor -) 1 applic TP DAILY [facility] Last Admin: 11/12/17 14:00 Dose: 1 applic Ertapenem (Invanz -) 1 gm IM ONCE ONE PRN Reason: Protocol Stop: 11/13/17 19:21 Gabapentin (Neurontin -) 400 mg PO TID [facility] Last Admin: 11/13/17 06:20 Dose: 400 mg IV Flush (Picc Line Flush) 8 ml IVPUSH PRN PRN PRN Reason: Protocol Insulin Aspart (Novolog Vial Sliding Scale -) 1 vial SQ ACHS [facility] PRN Reason: Protocol Last Admin: 11/13/17 12:03 Dose: 6 units Insulin Detemir (Levemir Vial) 40 units SQ BID@0700,2200 [facility] Lactic Acid (Lac-Hydrin 12) 1 applic TP BID [facility] Last Admin: 11/13/17 10:54 Dose: 1 applic Losartan Potassium (Cozaar -) 100 mg PO DAILY [facility] Last Admin: 11/13/17 10:51 Dose: 100 mg Methyl Salicylate ([place] -) 1 applic TP DAILY [facility] Last Admin: 11/13/17 10:53 Dose: 1 applic Montelukast Sodium (Singulair -) 10 mg PO HS [facility] Last Admin: 11/12/17 22:56 Dose: 10 mg Nystatin (Nystop Powder -) 1 applic TP TID [facility] Last Admin: 11/13/17 06:21 Dose: 1 applic Ranitidine HCl (Zantac -) 150 mg PO BID [facility] Last Admin: 11/13/17 10:51 Dose: 150 mg Tolterodine Tartrate (Detrol La -) 4 mg PO DAILY [facility] Last Admin: 11/13/17 10:52 Dose: 4 mg - Objective Vital Signs: Vital Signs Temperature 98.1 F 11/13/17 10:46 Pulse Rate 60 11/13/17 10:46 Respiratory Rate 20 11/13/17 10:46 Blood Pressure 131/60 11/13/17 10:46 O2 Sat by Pulse Oximetry (%) 95 11/13/17 11:00 Constitutional: Yes: No Distress, Calm Respiratory: Yes: Regular Gastrointestinal: Yes: Normal Bowel Sounds, Soft Genitourinary: Yes: WNL Extremities: Yes: WNL Neurological: Yes: Alert Labs: CBC, BMP 11/11/17 08:10 11/11/17 08:10 Microbiology 11/08/17 14:40 Blood - Peripheral Venous Blood Culture - Preliminary NO GROWTH OBTAINED AFTER 96 HOURS, INCUBATION TO CONTINUE FOR 1 DAYS. 11/08/17 14:40 Blood - Peripheral Venous Blood Culture - Preliminary NO GROWTH OBTAINED AFTER 96 HOURS, INCUBATION TO CONTINUE FOR 1 DAYS. 11/08/17 15:07 Urine - Urine Clean Catch Urine Culture - Final Klebsiella Pneumoniae - Esbl Problem List - Problems (1) Diabetes Code(s): E11.9 - TYPE 2 DIABETES MELLITUS WITHOUT COMPLICATIONS Qualifiers: Diabetes mellitus type: type 2 Diabetes mellitus complication status: with unspecified complications (2) H/O: CVA (cerebrovascular accident) Code(s): Z86.73 - PRSNL HX OF TIA (TIA), AND CEREB INFRC W/O RESID DEFICITS (3) HTN (hypertension) Code(s): I10 - ESSENTIAL (PRIMARY) HYPERTENSION Qualifiers: Hypertension type: essential hypertension Qualified Code(s): I10 - Essential (primary) hypertension (4) Pacemaker Code(s): Z95.0 - PRESENCE OF CARDIAC PACEMAKER (5) Renal calculus, right Code(s): N20.0 - CALCULUS OF KIDNEY (6) UTI (urinary tract infection) Code(s): N39.0 - URINARY TRACT INFECTION, SITE NOT SPECIFIED Qualifiers: Urinary tract infection type: site unspecified Hematuria presence: without hematuria Qualified Code(s): N39.0 - Urinary tract infection, site not specified Assessment/Plan 72 y.o. female with PMH of DM, nephrolithiasis s/p stone removal, previous UTIs , CVA, s/p PPM presenting with c/o dysuria and suprapubic pain. Denies dysuria today ESBL Klebsiella UTI - symptoms improving today - still without IV access - Invanz IM ordered for today, switch back to IV once access established continue monitor
[2017-11-13] MEDS: MINERAL OIL/PET HY-PHL TOPICAL OINTMENT 454 GM JAR TP SCH (14:00)
[2017-11-13] MEDS: COLLAGENASE CLOSTRIDIUM HIST. 30 GRAMS TUBE TP SCH (16:00)
[2017-11-13] MEDS ORDERED: ERTAPENEM SODIUM 1 GM VIAL IM ONE (19:20)
[2017-11-13] MEDS: ATORVASTATIN CA 40 MG TABLET (FP) PO SCH (22:34)
[2017-11-13] MEDS: MONTELUKAST NA 10 MG TABLET PO SCH (22:34)
[2017-11-13] MEDS ORDERED: ACETAMINOPHEN 325 MG TABLET (FP) PO ONE (22:44)
[2017-11-14] MEDS: GABAPENTIN 400 MG CAPSULE (FP) PO SCH ×3 (06:48→21:44)
[2017-11-14] MEDS: NYSTATIN POWDER 100,000 UNITS/GM - 15 GM TOPICAL POWDER TP SCH ×3 (06:48→21:44)
[2017-11-14] MEDS: INSULIN SLIDING SCALE (NOVOLOG) 1 VIAL SQ SCH ×5 (06:56→22:16)
[2017-11-14] MEDS: INSULIN (LEVEMIR) 100 UNITS/ML UNITS SQ SCH ×2 (06:56→22:16)
[2017-11-14] MEDS: TOLTERODINE TARTRATE LA 4 MG CAP.SR.24H (FP) PO SCH (10:09)
[2017-11-14] MEDS: LOSARTAN POTASSIUM 50 MG TABLET (FP) PO SCH (10:09)
[2017-11-14] MEDS: CLOPIDOGREL BISULFATE 75 MG TABLET (FP) PO SCH (10:09)
[2017-11-14] MEDS: BACLOFEN 10 MG TABLET (FP) PO SCH (10:09)
[2017-11-14] MEDS: RANITIDINE HCL 150 MG TABLET (FP) PO SCH ×2 (10:09→21:44)
[2017-11-14] MEDS: CITALOPRAM HYDROBROMIDE 10 MG TABLET (FP) PO SCH (10:09)
[2017-11-14] MEDS: METHYL SALICYLATE/MENTHOL OINT 30 GM TUBE TP SCH (10:10)
[2017-11-14] MEDS: AMMONIUM LACTATE 12% LOTION 225 GM BOTTLE TP SCH ×2 (11:09→21:44)
[2017-11-14] MEDS: MINERAL OIL/PET HY-PHL TOPICAL OINTMENT 454 GM JAR TP SCH (11:14)
[2017-11-14] MEDS ORDERED: INSULIN (NOVOLOG) ASPART 100 UNITS/ML 10ML VIAL ONE (11:24)
[2017-11-14] MEDS ORDERED: ERTAPENEM SODIUM 1 GM VIAL IM ONE (13:00)
--- NOTE | 2017-11-14 14:22 | DS ---
Physical Examination Vital Signs: Vital Signs Temperature 98.2 F 11/14/17 09:00 Pulse Rate 62 11/14/17 09:00 Respiratory Rate 20 11/14/17 09:00 Blood Pressure 144/95 11/14/17 09:00 O2 Sat by Pulse Oximetry (%) 95 11/13/17 21:00 Constitutional: Yes: Calm Neck: Yes: Trachea Midline Cardiovascular: Yes: Regular Rate and Rhythm, S1, S2 Respiratory: Yes: CTA Bilaterally Gastrointestinal: Yes: Normal Bowel Sounds, Soft Labs: CBC, BMP 11/11/17 08:10 11/11/17 08:10 Discharge Summary Reason For Visit: URINARY TRACT INFECTION Current Active Problems Open wound of left heel (Acute) Hospital Course: CHIEF COMPLAINT: Lower abdominal pain and dysuria x 2 weeks PCP: Dr. Wick HISTORY OF PRESENT ILLNESS: This is a 72 year old female with PMHx of DM, hyperlipidemia, HTN, neuropathy, pacemaker, CVA (left residual weakness), kidney stones (s/p removal [address] Decker), who presented to the with 2 weeks of suprapubic pain and dysuria. The patient reports she has had multiple UTIs in the past. She denies any hematuria, fever, chills, urgency, frequency. The patient reports she was sent in by her aba therapist today for UTI and IV abx. ER course was notable for: (1) Temp 98.1, pulse 66, BP 159/70, resp 16, O2 100% on RA (2) Cr 1.1 (3) UA with 3+ leuks, WBC 261, few bacteria Recent Travel: denies PAST MEDICAL HISTORY: as above PAST SURGICAL HISTORY: as above Social History: Smoking: denies Alcohol: denies Drugs: denies in hospital found to have ESBL in urine Microbiology 11/08/17 15:07 Urine - Urine Clean Catch Urine Culture - Final Klebsiella Pneumoniae - Esbl started on carbipenem needs 14 days course will come as outpatient to get daily iv infusions Condition: Stable - Instructions Diet, Activity, Other Instructions: come daily outpatient for iv infusion of invanz needs 10 day course Referrals: Ayleen Wick MD [Primary Care Provider] - Disposition: HOME - Home Medications Comprehensive Discharge Medication List: Ambulatory Orders Albuterol Sulfate [Proair Respiclick] 90 mcg IH QID 11/08/17 Ammonium Lactate Cream [Lac-Hydrin] 1 applic TP BID 11/08/17 Atorvastatin Ca [Lipitor] 40 mg PO HS 11/08/17 Baclofen 10 mg PO DAILY 11/08/17 Cholecalciferol (Vitamin D3) [Vitamin D3] 50,000 unit PO WEEKLY 11/08/17 Citalopram Hydrobromide [Celexa -] 10 mg PO DAILY 11/08/17 Clopidogrel Bisulfate [Clopidogrel] 75 mg PO DAILY 11/08/17 Cyproheptadine HCl 2 mg PO QID 11/08/17 Famotidine [Pepcid] 40 mg PO TID 11/08/17 Fesoterodine Fumarate [Toviaz] 8 mg PO DAILY 11/08/17 Gabapentin 400 mg PO TID 11/08/17 Glyburide 6 mg PO BID 11/08/17 Guaifenesin [Robitussin -] 100 mg PO TID 11/08/17 Insulin Glargine,Hum.rec.anlog [Lantus] 34 unit SQ BID 11/08/17 Insulin Lispro [Humalog] 12 unit SQ TID 11/08/17 Irbesartan [Avapro] 150 mg PO DAILY 11/08/17 Montelukast Sodium [Singulair] 10 mg PO HS 11/08/17 Nystatin Powder [Nystop Topical Powder -] 15 gm TP TID 11/08/17 Pantoprazole Sodium [Protonix -] 20 mg PO DAILY 11/08/17 Quetiapine Fumarate [Seroquel -] 50 mg PO HS 11/08/17
[2017-11-14] MEDS: COLLAGENASE CLOSTRIDIUM HIST. 30 GRAMS TUBE TP SCH (15:53)
--- NOTE | 2017-11-14 20:55 | PN ---
Progress Note, Physician History of Present Illness: doing wel no issues - Current Medication List Current Medications: Active Medications Albuterol Sulfate (Ventolin 0.083% Nebulizer Soln -) 1 amp NEB Q6H PRN PRN Reason: SHORT OF BREATH/WHEEZING Last Admin: 11/10/17 20:55 Dose: 1 amp Atorvastatin Calcium (Lipitor -) 40 mg PO HS [facility] Last Admin: 11/13/17 22:34 Dose: 40 mg Baclofen (Lioresal -) 10 mg PO DAILY [facility] Last Admin: 11/14/17 10:09 Dose: 10 mg Citalopram Hydrobromide (Celexa -) 10 mg PO DAILY [facility] Last Admin: 11/14/17 10:09 Dose: 10 mg Clopidogrel Bisulfate (Plavix -) 75 mg PO DAILY [facility] Last Admin: 11/14/17 10:09 Dose: 75 mg Collagenase (Santyl -) 1 applic TP DAILY [facility] Last Admin: 11/14/17 15:53 Dose: 1 applic Emollient Ointment (Aquaphor -) 1 applic TP DAILY [facility] Last Admin: 11/14/17 11:14 Dose: Not Given Gabapentin (Neurontin -) 400 mg PO TID [facility] Last Admin: 11/14/17 14:00 Dose: 400 mg IV Flush (Picc Line Flush) 8 ml IVPUSH PRN PRN PRN Reason: Protocol Insulin Aspart (Novolog Vial Sliding Scale -) 1 vial SQ ACHS [facility] PRN Reason: Protocol Last Admin: 11/14/17 16:33 Dose: 6 units Insulin Detemir (Levemir Vial) 40 units SQ BID@0700,2200 [facility] Last Admin: 11/14/17 06:56 Dose: 40 units Lactic Acid (Lac-Hydrin 12) 1 applic TP BID [facility] Last Admin: 11/14/17 11:09 Dose: 1 applic Losartan Potassium (Cozaar -) 100 mg PO DAILY [facility] Last Admin: 11/14/17 10:09 Dose: 100 mg Methyl Salicylate ([place] -) 1 applic TP DAILY [facility] Last Admin: 11/14/17 10:10 Dose: 1 applic Montelukast Sodium (Singulair -) 10 mg PO HS [facility] Last Admin: 11/13/17 22:34 Dose: 10 mg Nystatin (Nystop Powder -) 1 applic TP TID [facility] Last Admin: 11/14/17 14:00 Dose: 1 applic Ranitidine HCl (Zantac -) 150 mg PO BID [facility] Last Admin: 11/14/17 10:09 Dose: 150 mg Tolterodine Tartrate (Detrol La -) 4 mg PO DAILY [facility] Last Admin: 11/14/17 10:09 Dose: 4 mg - Objective Vital Signs: Vital Signs Temperature 98.5 F 11/14/17 18:00 Pulse Rate 61 11/14/17 18:00 Respiratory Rate 20 11/14/17 18:00 Blood Pressure 146/65 11/14/17 18:00 O2 Sat by Pulse Oximetry (%) 98 11/14/17 09:00 Constitutional: Yes: No Distress, Calm Cardiovascular: Yes: Regular Rate and Rhythm Respiratory: Yes: Regular, CTA Bilaterally Gastrointestinal: Yes: Normal Bowel Sounds, Soft Musculoskeletal: Yes: Other Extremities: Yes: Other Neurological: Yes: Alert, Oriented Psychiatric: Yes: Alert, Oriented Labs: CBC, BMP 11/11/17 08:10 11/11/17 08:10 Assessment/Plan Problem List - Problems (1) Diabetes Code(s): E11.9 - TYPE 2 DIABETES MELLITUS WITHOUT COMPLICATIONS Qualifiers: Diabetes mellitus type: type 2 Diabetes mellitus complication status: with unspecified complications (2) H/O: CVA (cerebrovascular accident) Code(s): Z86.73 - PRSNL HX OF TIA (TIA), AND CEREB INFRC W/O RESID DEFICITS (3) HTN (hypertension) Code(s): I10 - ESSENTIAL (PRIMARY) HYPERTENSION Qualifiers: Hypertension type: essential hypertension Qualified Code(s): I10 - Essential (primary) hypertension (4) Intractable abdominal pain Code(s): R10.9 - UNSPECIFIED ABDOMINAL PAIN (5) Pacemaker Code(s): Z95.0 - PRESENCE OF CARDIAC PACEMAKER (6) UTI (urinary tract infection) Code(s): N39.0 - URINARY TRACT INFECTION, SITE NOT SPECIFIED Qualifiers: Urinary tract infection type: site unspecified Hematuria presence: without hematuria Qualified Code(s): N39.0 - Urinary tract infection, site not specified urine cx noted plan continue ertapenam patient lost iv line can give one dose IM patient for picc line once picc line placed then through the picc line
[2017-11-14] MEDS: MONTELUKAST NA 10 MG TABLET PO SCH (21:44)
[2017-11-14] MEDS: ATORVASTATIN CA 40 MG TABLET (FP) PO SCH (21:44)
[2017-11-15] MEDS: GABAPENTIN 400 MG CAPSULE (FP) PO SCH ×2 (06:14→15:23)
[2017-11-15] MEDS: NYSTATIN POWDER 100,000 UNITS/GM - 15 GM TOPICAL POWDER TP SCH (06:14)
[2017-11-15] MEDS: INSULIN (LEVEMIR) 100 UNITS/ML UNITS SQ SCH (06:15)
[2017-11-15] MEDS: INSULIN SLIDING SCALE (NOVOLOG) 1 VIAL SQ SCH ×2 (06:22→13:10)
--- NOTE | 2017-11-15 09:47 | PN ---
Progress Note, Physician History of Present Illness: stable no issues patient going for picc line - Current Medication List Current Medications: Active Medications Albuterol Sulfate (Ventolin 0.083% Nebulizer Soln -) 1 amp NEB Q6H PRN PRN Reason: SHORT OF BREATH/WHEEZING Last Admin: 11/10/17 20:55 Dose: 1 amp Atorvastatin Calcium (Lipitor -) 40 mg PO HS [facility] Last Admin: 11/14/17 21:44 Dose: 40 mg Baclofen (Lioresal -) 10 mg PO DAILY [facility] Last Admin: 11/14/17 10:09 Dose: 10 mg Citalopram Hydrobromide (Celexa -) 10 mg PO DAILY [facility] Last Admin: 11/14/17 10:09 Dose: 10 mg Clopidogrel Bisulfate (Plavix -) 75 mg PO DAILY [facility] Last Admin: 11/14/17 10:09 Dose: 75 mg Collagenase (Santyl -) 1 applic TP DAILY [facility] Last Admin: 11/14/17 15:53 Dose: 1 applic Emollient Ointment (Aquaphor -) 1 applic TP DAILY [facility] Last Admin: 11/14/17 11:14 Dose: Not Given Gabapentin (Neurontin -) 400 mg PO TID [facility] Last Admin: 11/15/17 06:14 Dose: 400 mg IV Flush (Picc Line Flush) 8 ml IVPUSH PRN PRN PRN Reason: Protocol Insulin Aspart (Novolog Vial Sliding Scale -) 1 vial SQ ACHS [facility] PRN Reason: Protocol Last Admin: 11/15/17 06:22 Dose: 2 units Insulin Detemir (Levemir Vial) 40 units SQ BID@0700,2200 [facility] Last Admin: 11/15/17 06:15 Dose: 40 units Lactic Acid (Lac-Hydrin 12) 1 applic TP BID [facility] Last Admin: 11/14/17 21:44 Dose: 1 applic Losartan Potassium (Cozaar -) 100 mg PO DAILY [facility] Last Admin: 11/14/17 10:09 Dose: 100 mg Methyl Salicylate ([place] -) 1 applic TP DAILY [facility] Last Admin: 11/14/17 10:10 Dose: 1 applic Montelukast Sodium (Singulair -) 10 mg PO HS [facility] Last Admin: 11/14/17 21:44 Dose: 10 mg Nystatin (Nystop Powder -) 1 applic TP TID [facility] Last Admin: 05/15/18 06:14 Dose: 1 applic Ranitidine HCl (Zantac -) 150 mg PO BID [facility] Last Admin: 11/14/17 21:44 Dose: 150 mg Tolterodine Tartrate (Detrol La -) 4 mg PO DAILY [facility] Last Admin: 11/14/17 10:09 Dose: 4 mg - Objective Vital Signs: Vital Signs Temperature 97.8 F 11/15/17 08:40 Pulse Rate 60 11/15/17 08:40 Respiratory Rate 20 11/15/17 08:40 Blood Pressure 142/86 11/15/17 08:40 O2 Sat by Pulse Oximetry (%) 98 11/14/17 21:00 Constitutional: Yes: No Distress, Calm, Obese Cardiovascular: Yes: Regular Rate and Rhythm Respiratory: Yes: Regular, CTA Bilaterally Gastrointestinal: Yes: Normal Bowel Sounds, Soft Musculoskeletal: Yes: WNL Extremities: Yes: Other Wound/Incision: Yes: Dressing Dry and Intact Neurological: Yes: Alert, Oriented Psychiatric: Yes: Alert, Oriented Labs: CBC, BMP 11/11/17 08:10 11/11/17 08:10 Assessment/Plan Problem List - Problems (1) Diabetes Code(s): E11.9 - TYPE 2 DIABETES MELLITUS WITHOUT COMPLICATIONS Qualifiers: Diabetes mellitus type: type 2 Diabetes mellitus complication status: with unspecified complications (2) H/O: CVA (cerebrovascular accident) Code(s): Z86.73 - PRSNL HX OF TIA (TIA), AND CEREB INFRC W/O RESID DEFICITS (3) HTN (hypertension) Code(s): I10 - ESSENTIAL (PRIMARY) HYPERTENSION Qualifiers: Hypertension type: essential hypertension Qualified Code(s): I10 - Essential (primary) hypertension (4) Intractable abdominal pain Code(s): R10.9 - UNSPECIFIED ABDOMINAL PAIN (5) Pacemaker Code(s): Z95.0 - PRESENCE OF CARDIAC PACEMAKER (6) UTI (urinary tract infection) Code(s): N39.0 - URINARY TRACT INFECTION, SITE NOT SPECIFIED Qualifiers: Urinary tract infection type: site unspecified Hematuria presence: without hematuria Qualified Code(s): N39.0 - Urinary tract infection, site not specified urine cx noted plan continue abx complete the course rest as per the team patient stable
--- NOTE | 2017-11-15 13:08 | PN ---
Progress Note, Physician Chief Complaint: patient is back from with tunnel catheter placed to get iv abx the will go home no fever no dysuria - Current Medication List Current Medications: Active Medications Albuterol Sulfate (Ventolin 0.083% Nebulizer Soln -) 1 amp NEB Q6H PRN PRN Reason: SHORT OF BREATH/WHEEZING Last Admin: 11/10/17 20:55 Dose: 1 amp Atorvastatin Calcium (Lipitor -) 40 mg PO HS [facility] Last Admin: 11/14/17 21:44 Dose: 40 mg Baclofen (Lioresal -) 10 mg PO DAILY [facility] Last Admin: 11/14/17 10:09 Dose: 10 mg Citalopram Hydrobromide (Celexa -) 10 mg PO DAILY [facility] Last Admin: 11/14/17 10:09 Dose: 10 mg Clopidogrel Bisulfate (Plavix -) 75 mg PO DAILY [facility] Last Admin: 11/14/17 10:09 Dose: 75 mg Collagenase (Santyl -) 1 applic TP DAILY [facility] Last Admin: 11/14/17 15:53 Dose: 1 applic Emollient Ointment (Aquaphor -) 1 applic TP DAILY [facility] Last Admin: 11/14/17 11:14 Dose: Not Given Gabapentin (Neurontin -) 400 mg PO TID [facility] Last Admin: 11/15/17 06:14 Dose: 400 mg IV Flush (Picc Line Flush) 8 ml IVPUSH PRN PRN PRN Reason: Protocol Insulin Aspart (Novolog Vial Sliding Scale -) 1 vial SQ ACHS [facility] PRN Reason: Protocol Last Admin: 11/15/17 06:22 Dose: 2 units Insulin Detemir (Levemir Vial) 40 units SQ BID@0700,2200 [facility] Last Admin: 11/15/17 06:15 Dose: 40 units Lactic Acid (Lac-Hydrin 12) 1 applic TP BID [facility] Last Admin: 11/14/17 21:44 Dose: 1 applic Losartan Potassium (Cozaar -) 100 mg PO DAILY [facility] Last Admin: 11/14/17 10:09 Dose: 100 mg Methyl Salicylate ([place] -) 1 applic TP DAILY [facility] Last Admin: 11/14/17 10:10 Dose: 1 applic Montelukast Sodium (Singulair -) 10 mg PO HS [facility] Last Admin: 11/14/17 21:44 Dose: 10 mg Nystatin (Nystop Powder -) 1 applic TP TID [facility] Last Admin: 11/15/17 06:14 Dose: 1 applic Ranitidine HCl (Zantac -) 150 mg PO BID [facility] Last Admin: 11/14/17 21:44 Dose: 150 mg Tolterodine Tartrate (Detrol La -) 4 mg PO DAILY [facility] Last Admin: 11/14/17 10:09 Dose: 4 mg - Objective Vital Signs: Vital Signs Temperature 97.8 F 11/15/17 08:40 Pulse Rate 60 11/15/17 08:40 Respiratory Rate 20 11/15/17 08:40 Blood Pressure 142/86 11/15/17 08:40 O2 Sat by Pulse Oximetry (%) 98 11/14/17 21:00 Constitutional: Yes: Calm Neck: Yes: Trachea Midline Cardiovascular: Yes: Regular Rate and Rhythm, S1, S2 Respiratory: Yes: CTA Bilaterally Gastrointestinal: Yes: Normal Bowel Sounds, Soft Edema: No Neurological: Yes: Alert, Oriented Labs: CBC, BMP 11/11/17 08:10 11/11/17 08:10 Problem List - Problems (1) Diabetes Assessment/Plan: insulin bgm hga1c 8.5 neurontin for neuropathy losartan for proteinuria Code(s): E11.9 - TYPE 2 DIABETES MELLITUS WITHOUT COMPLICATIONS Qualifiers: Diabetes mellitus type: type 2 Diabetes mellitus complication status: with unspecified complications (2) UTI (urinary tract infection) Assessment/Plan: Microbiology 11/08/17 15:07 Urine - Urine Clean Catch Urine Culture - Final Klebsiella Pneumoniae - Esbl isolationinvanz for 10 days via tunel cath as outpatient Code(s): N39.0 - URINARY TRACT INFECTION, SITE NOT SPECIFIED Qualifiers: Urinary tract infection type: site unspecified Hematuria presence: without hematuria Qualified Code(s): N39.0 - Urinary tract infection, site not specified (3) Open wound of left heel Assessment/Plan: vascular eval noted stage 2 on heel- collagenase Code(s): S91.302A - UNSPECIFIED OPEN WOUND, LEFT FOOT, INITIAL ENCOUNTER
[2017-11-15] MEDS: LOSARTAN POTASSIUM 50 MG TABLET (FP) PO SCH (13:09)
[2017-11-15] MEDS: METHYL SALICYLATE/MENTHOL OINT 30 GM TUBE TP SCH (13:09)
[2017-11-15] MEDS: MINERAL OIL/PET HY-PHL TOPICAL OINTMENT 454 GM JAR TP SCH (13:09)
[2017-11-15] MEDS: CLOPIDOGREL BISULFATE 75 MG TABLET (FP) PO SCH (13:09)
[2017-11-15] MEDS: AMMONIUM LACTATE 12% LOTION 225 GM BOTTLE TP SCH (13:09)
[2017-11-15] MEDS: CITALOPRAM HYDROBROMIDE 10 MG TABLET (FP) PO SCH (13:09)
[2017-11-15] MEDS: BACLOFEN 10 MG TABLET (FP) PO SCH (13:09)
[2017-11-15] MEDS: COLLAGENASE CLOSTRIDIUM HIST. 30 GRAMS TUBE TP SCH (13:10)
[2017-11-15] MEDS: RANITIDINE HCL 150 MG TABLET (FP) PO SCH (13:10)
[2017-11-15] MEDS: TOLTERODINE TARTRATE LA 4 MG CAP.SR.24H (FP) PO SCH (13:10)
[2017-11-15] MEDS ORDERED: ERTAPENEM SODIUM 1 GM/50 ML PRE-DOCKED IVPB SCH (13:15)
[2017-11-15] MEDS ORDERED: ERTAPENEM SODIUM 1 GM in SODIUM CHLORIDE 50 ML IVPB ONE (13:45)
[2017-11-15] MEDS ORDERED: PT OWN MED DRAWER 7, Y5N ONE (14:52)
[2017-11-15 15:56] VITALS: BP 151/61; PULSE 64; TEMP 98.1
== END 2017-11-15 17:18 | disposition home or self-care (01) | DRG 690 ==
LOC: JER 13:01 → JERBED 18:00 → J5S 21:33 → OBSVTOIN 11-11 14:58
PROVIDERS: ADMIT Family Medicine; ATTEND Family Medicine
PROC: 05HM33Z Insertion of Infusion Device into Right Internal Jugular Vein, Percutaneous Approach (ICD-10-PCS; principal; 2017-11-15)
PROC: B543ZZA Ultrasonography of Right Jugular Veins, Guidance (ICD-10-PCS; 2017-11-15)
DX: N39.0 Urinary tract infection, site not specified (principal); I69.354 Hemiplegia and hemiparesis following cerebral infarction affecting left non-dominant side; J45.909 Unspecified asthma, uncomplicated; K21.9 Gastro-esophageal reflux disease without esophagitis; E78.00 Pure hypercholesterolemia, unspecified; I10 Essential (primary) hypertension; R32 Unspecified urinary incontinence; E11.40 Type 2 diabetes mellitus with diabetic neuropathy, unspecified; I45.81 Long QT syndrome; L89.622 Pressure ulcer of left heel, stage 2; L89.322 Pressure ulcer of left buttock, stage 2; R10.9 Unspecified abdominal pain; B96.1 Klebsiella pneumoniae [K. pneumoniae] as the cause of diseases classified elsewhere; Z95.0 Presence of cardiac pacemaker; Z87.442 Personal history of urinary calculi
CPT/HCPCS: 36415; 36558; 36569; 76775-TC; 77001-TC-FY; 80053; 81003; 81015; 82962; 83036; 83735; 84100; 85025; 87040; 87086; 87186; 87324; 87449; 93005; 93010; 94640; 97116-GP; 97162-GP; 99283-25; C1751; G0378; J0475; J7030

== ENCOUNTER 2017-11-16 12:02 | Day surgery (SDC) | payer OTHER ==
[2017-11-16] MEDS ORDERED: ERTAPENEM SODIUM 1 GM in SODIUM CHLORIDE 50 ML IVPB ONE (13:00)
[2017-11-16 13:14] VITALS: PULSE 60; TEMP 98.4
[2017-11-16 13:54] VITALS: BP 127/69
== END 2017-11-16 13:54 | disposition home or self-care (01) ==
LOC: JINFUSION 12:02
PROVIDERS: ATTEND Student in an Organized Health Care Education/Training Program
DX: N39.0 Urinary tract infection, site not specified (principal); I10 Essential (primary) hypertension; E11.9 Type 2 diabetes mellitus without complications; E78.5 Hyperlipidemia, unspecified; G62.9 Polyneuropathy, unspecified; Z86.73 Personal history of transient ischemic attack (TIA), and cerebral infarction without residual deficits; Z87.442 Personal history of urinary calculi; Z87.440 Personal history of urinary (tract) infections
CPT/HCPCS: 96365

== ENCOUNTER 2017-11-17 09:14 | Day surgery (SDC) | payer OTHER ==
[2017-11-17] MEDS ORDERED: ERTAPENEM SODIUM 1 GM VIAL ONE (09:27)
[2017-11-17] MEDS ORDERED: ERTAPENEM SODIUM 1 GM in SODIUM CHLORIDE 100 ML IVPB ONE (09:30)
[2017-11-17 10:05] VITALS: TEMP 98.6
[2017-11-17 10:37] VITALS: BP 127/66; PULSE 63
== END 2017-11-17 10:40 | disposition home or self-care (01) ==
LOC: JINFUSION 09:14
PROVIDERS: ATTEND Student in an Organized Health Care Education/Training Program
DX: N39.0 Urinary tract infection, site not specified (principal); I10 Essential (primary) hypertension; E11.9 Type 2 diabetes mellitus without complications; E78.5 Hyperlipidemia, unspecified; G62.9 Polyneuropathy, unspecified; Z86.73 Personal history of transient ischemic attack (TIA), and cerebral infarction without residual deficits; Z87.442 Personal history of urinary calculi; Z87.440 Personal history of urinary (tract) infections
CPT/HCPCS: 96365

== ENCOUNTER 2017-11-18 08:59 | Day surgery (SDC) | payer OTHER ==
[~2017-11-18 08:59] MED LIST: ERTAPENEM SODIUM 1 GM in SODIUM CHLORIDE 50 ML IVPB ONE
[2017-11-18 09:53] VITALS: BP 115/60; PULSE 62; TEMP 98
== END 2017-11-18 10:30 | disposition home or self-care (01) ==
LOC: JINFUSION 08:59
PROVIDERS: ATTEND Student in an Organized Health Care Education/Training Program
DX: N39.0 Urinary tract infection, site not specified (principal); I10 Essential (primary) hypertension; E11.9 Type 2 diabetes mellitus without complications; E78.5 Hyperlipidemia, unspecified; G62.9 Polyneuropathy, unspecified; Z86.73 Personal history of transient ischemic attack (TIA), and cerebral infarction without residual deficits; Z87.442 Personal history of urinary calculi; Z87.440 Personal history of urinary (tract) infections
CPT/HCPCS: 96365

== ENCOUNTER 2017-11-19 09:07 | Day surgery (SDC) | payer OTHER ==
[2017-11-19] MEDS ORDERED: ERTAPENEM SODIUM 1 GM in SODIUM CHLORIDE 50 ML IVPB ONE (10:00)
[2017-11-19 11:48] VITALS: TEMP 98
[2017-11-19 11:50] VITALS: BP 125/80; PULSE 59
== END 2017-11-19 11:51 | disposition home or self-care (01) ==
LOC: JINFUSION 09:07 → J7W 09:08 → JINFUSION 11:51
PROVIDERS: ATTEND Student in an Organized Health Care Education/Training Program
DX: N39.0 Urinary tract infection, site not specified (principal); I10 Essential (primary) hypertension; E11.9 Type 2 diabetes mellitus without complications; E78.5 Hyperlipidemia, unspecified; G62.9 Polyneuropathy, unspecified; Z86.73 Personal history of transient ischemic attack (TIA), and cerebral infarction without residual deficits; Z87.442 Personal history of urinary calculi; Z87.440 Personal history of urinary (tract) infections
CPT/HCPCS: 96365

== ENCOUNTER 2017-11-20 09:42 | Day surgery (SDC) | payer OTHER ==
[2017-11-20] MEDS ORDERED: ERTAPENEM SODIUM 1 GM in SODIUM CHLORIDE 50 ML IVPB ONE (10:15)
[2017-11-20 14:19] VITALS: BP 137/68; PULSE 64; TEMP 98.1
== END 2017-11-20 11:40 | disposition home or self-care (01) ==
LOC: JINFUSION 09:42 → J7W 09:44 → JINFUSION 11:40
PROVIDERS: ATTEND Student in an Organized Health Care Education/Training Program
DX: N39.0 Urinary tract infection, site not specified (principal); I10 Essential (primary) hypertension; E11.9 Type 2 diabetes mellitus without complications; E78.5 Hyperlipidemia, unspecified; G62.9 Polyneuropathy, unspecified; Z86.73 Personal history of transient ischemic attack (TIA), and cerebral infarction without residual deficits; Z87.442 Personal history of urinary calculi; Z87.440 Personal history of urinary (tract) infections
CPT/HCPCS: 96365

== ENCOUNTER 2017-11-21 09:50 | Day surgery (SDC) | payer OTHER ==
[~2017-11-21 09:50] MED LIST changes: +ERTAPENEM SODIUM 1 GM in SODIUM CHLORIDE 100 ML IVPB SCH; -ERTAPENEM SODIUM 1 GM in SODIUM CHLORIDE 50 ML IVPB ONE
[2017-11-21] MEDS ORDERED: ERTAPENEM SODIUM 1 GM VIAL ONE (10:03)
[2017-11-21 12:51] VITALS: TEMP 98.4
[2017-11-21 12:52] VITALS: BP 143/59; PULSE 60
== END 2017-11-21 11:30 | disposition home or self-care (01) ==
LOC: JASU-ENDO 09:50
PROVIDERS: ATTEND Student in an Organized Health Care Education/Training Program
DX: N39.0 Urinary tract infection, site not specified (principal); I10 Essential (primary) hypertension; E11.9 Type 2 diabetes mellitus without complications; E78.5 Hyperlipidemia, unspecified; G62.9 Polyneuropathy, unspecified; Z86.73 Personal history of transient ischemic attack (TIA), and cerebral infarction without residual deficits; Z87.442 Personal history of urinary calculi; Z87.440 Personal history of urinary (tract) infections
CPT/HCPCS: 96365

== ENCOUNTER 2017-11-22 09:16 | Day surgery (SDC) | payer OTHER ==
[2017-11-22] MEDS ORDERED: ERTAPENEM SODIUM 1 GM VIAL ONE (09:25)
[2017-11-22 09:55] VITALS: BP 111/60; PULSE 62; TEMP 97.8
[2017-11-22] MEDS ORDERED: ERTAPENEM SODIUM 1 GM in SODIUM CHLORIDE 100 ML IVPB ONE (10:00)
== END 2017-11-22 10:32 | disposition home or self-care (01) ==
LOC: JINFUSION 09:16
PROVIDERS: ATTEND Student in an Organized Health Care Education/Training Program
DX: N39.0 Urinary tract infection, site not specified (principal); I10 Essential (primary) hypertension; E11.9 Type 2 diabetes mellitus without complications
CPT/HCPCS: 96365

== ENCOUNTER 2017-11-23 09:48 | Day surgery (SDC) | payer OTHER ==
[2017-11-23 10:14] LABS: HEMATOCRIT 35.7 % (32.4-45.2); HEMOGLOBIN 11.7 GM/dL (10.7-15.3); MCH 28.6 pg (25.7-33.7); MCHC 32.9 g/dl (32.0-36.0); MEAN CELL VOLUME 87.1 fl (80-96); MEAN PLT VOLUME 7.9 fl (7.5-11.1); PLATELET COUNT 289 K/MM3 (134-434); RDW 13.1 % (11.6-15.6); WHITE BLOOD COUNT 6.2 K/mm3 (4.0-10.0)
[2017-11-23] MEDS ORDERED: ERTAPENEM SODIUM 1 GM VIAL ONE (10:38)
[2017-11-23 10:40] LABS: ALBUMIN 3.4 g/dl (3.4-5.0); ALK PHOS 127 U/L (45-117); ANION GAP 5 (8-16); BILIRUBIN,TOTAL 0.3 mg/dL (0.2-1.0); BLOOD UREA NITROGEN 15 mg/dL (7-18); CALCIUM 9.6 mg/dL (8.5-10.1); CHLORIDE 105 mmol/L (98-107); CO2 30 mmol/L (21-32); CREATININE 0.9 mg/dL (0.55-1.02); GLUCOSE,RANDOM 289 mg/dL (74-106); POTASSIUM 4.4 mmol/L (3.5-5.1); SGOT/AST 12 U/L (15-37); SGPT/ALT 22 U/L (12-78); SODIUM 140 mmol/L (136-145); TOT PROT 7.2 g/dl (6.4-8.2)
[2017-11-23 10:45] VITALS: BP 151/71; PULSE 60; TEMP 98.1
[2017-11-23] MEDS ORDERED: ERTAPENEM SODIUM 1 GM in SODIUM CHLORIDE 100 ML IVPB ONE (11:00)
== END 2017-11-23 11:36 | disposition home or self-care (01) ==
LOC: JINFUSION 09:48
PROVIDERS: ATTEND Student in an Organized Health Care Education/Training Program
DX: N39.0 Urinary tract infection, site not specified (principal); I10 Essential (primary) hypertension; E11.9 Type 2 diabetes mellitus without complications
CPT/HCPCS: 36415; 80053; 85027; 96365

== ENCOUNTER 2017-11-24 09:06 | Day surgery (SDC) | payer OTHER ==
[~2017-11-24 09:06] MED LIST changes: -ERTAPENEM SODIUM 1 GM in SODIUM CHLORIDE 100 ML IVPB SCH; +ERTAPENEM SODIUM 1 GM in SODIUM CHLORIDE 50 ML IVPB ONE
[2017-11-24 13:00] VITALS: BP 128/62; PULSE 64; TEMP 98.3
== END 2017-11-24 10:30 | disposition home or self-care (01) ==
LOC: JINFUSION 09:06
PROVIDERS: ATTEND Student in an Organized Health Care Education/Training Program
DX: N39.0 Urinary tract infection, site not specified (principal); I10 Essential (primary) hypertension; E11.9 Type 2 diabetes mellitus without complications
CPT/HCPCS: 96365

== ENCOUNTER → 2017-12-06 | Day surgery (SDC) | payer OTHER | END | disposition home or self-care (01) | LOC: JRADIR 11:15 | PROVIDERS: ATTEND Family Medicine | PROC: 02PY03Z Removal of Infusion Device from Great Vessel, Open Approach (ICD-10-PCS; principal; 2017-12-06) | DX: Z45.2 Encounter for adjustment and management of vascular access device (principal) | CPT/HCPCS: 36581; 36589; 77001-TC-FY ==

== ENCOUNTER 2020-01-29 08:07 | Day surgery (SDC) | payer OTHER ==
[2020-01-28 15:42] VITALS: BMI 36.0
[2020-01-29] MEDS ORDERED: MIDAZOLAM HCL 2 MG/2 ML SINGLE DOSE VIAL ONE (11:15)
[2020-01-29] MEDS ORDERED: ceFAZolin SODIUM 1 GM VIAL ONE (11:15)
[2020-01-29] MEDS ORDERED: ceFAZolin SODIUM 1 GM VIAL IVPB ONE (11:19)
[2020-01-29 12:02] VITALS: TEMP 97.1
[2020-01-29 13:35] VITALS: BP 135/68; PULSE 62
--- NOTE | 2020-01-30 10:34 | HP ---
DATE OF DICTATION: 01/29/2020 HISTORY OF PRESENT ILLNESS: Patient is a 74-year-old female with history of bilateral flank pain which has been increasing in severity. She does have history of nephrolithiasis. The pain at present is more on the right than the left. It is colicky in nature with radiation to the right lower quadrant and groin. She also has frequency, urgency, and dysuria. She wakes up 4 times at night. PAST MEDICAL HISTORY: She is a diabetic, hypertensive, atrial fibrillation, hyperlipidemia. She has had a right CVA with residual left hemiparesis. ALLERGIES: She is also allergic to ASPIRIN. OBSTETRICAL HISTORY: She is a G5, P5. PHYSICAL EXAMINATION: Chest was clear. Abdomen is soft. There is bilateral CVA tenderness. No hepatosplenomegaly. Pelvic revealed an atrophic vaginal mucosa. There was a grade 2 cystorectocele. Her Moises test was positive. Her urine revealed a large amount of blood. The renal sonogram revealed bilateral stones, more on the right than the left. Patient is scheduled to undergo a right extracorporeal shock wave lithotripsy. All possible side effects including an obstruction, hemorrhage, perforation were explained, and she agrees. RICARDO MACIAS M.D. [id number]
--- NOTE | 2020-02-15 12:48 | OP ---
DATE OF OPERATION: 01/29/2020 PREOPERATIVE DIAGNOSIS: Right renal stone. OPERATIVE PROCEDURE: Right extracorporeal shockwave lithotripsy. ANESTHESIA: General. DESCRIPTION OF PROCEDURE: Under above-stated anesthesia patient was prepped and draped in the usual sterile manner. Placed in the supine position. After proper placement of the shockwave using ultrasound and localization of the stone the patient received 2500 shocks at an energy level of 18. There appeared to be good fragmentation of the stone. The patient tolerated the procedure well. She returned to the recovery room in good condition. Brittney [id number]
== END 2020-01-29 13:45 | disposition home or self-care (01) ==
LOC: JASU-SURG 08:07
PROVIDERS: ATTEND Urology
PROC: 0TF3XZZ Fragmentation in Right Kidney Pelvis, External Approach (ICD-10-PCS; principal; 2020-01-29 10:00)
DX: N20.0 Calculus of kidney (principal)
CPT/HCPCS: 82962

== ENCOUNTER 2020-09-23 05:28 | Day surgery (SDC) | payer OTHER ==
[2020-08-21 16:17] VITALS: BMI 34.4
[2020-09-23] MEDS ORDERED: MIDAZOLAM HCL 2 MG/2 ML SINGLE DOSE VIAL ONE (09:42)
[2020-09-23] MEDS ORDERED: ceFAZolin SODIUM 1 GM VIAL IVPB ONE (09:45)
[2020-09-23] MEDS ORDERED: ceFAZolin SODIUM 1 GM VIAL ONE (09:50)
[2020-09-23] MEDS ORDERED: IOHEXOL 180 MG/1 ML ML IJ ONE ×2 (10:04→10:05)
[2020-09-23 11:12] VITALS: PULSE 60
[2020-09-23 16:17] VITALS: BP 160/63; TEMP 97.8
== END 2020-09-23 13:30 | disposition home or self-care (01) ==
LOC: JASU-SURG 05:28
PROVIDERS: ATTEND Urology
PROC: 0TF4XZZ Fragmentation in Left Kidney Pelvis, External Approach (ICD-10-PCS; principal; 2020-09-23 09:00)
DX: N20.0 Calculus of kidney (principal)
CPT/HCPCS: 82962

== ENCOUNTER 2021-07-04 15:16 | Inpatient (IN) | payer OTHER ==
[2021-07-04] MEDS ORDERED: FAMOTIDINE 20 MG/50 ML IVPB 20 MG/50 ML MG IVPB ONE ×2 (17:20→17:37)
[2021-07-04] MEDS ORDERED: morphine CARPU-JECT 4 MG/1 ML DISP.SYRIN IVPUSH ONE (17:20)
[2021-07-04] MEDS ORDERED: METOCLOPRAMIDE HCL INJECTION 10 MG/2 ML VIAL IVPB ONE (17:20)
[2021-07-04] MEDS ORDERED: morphine SULFATE 4 MG/ML VIAL ONE (17:36)
[2021-07-04] MEDS ORDERED: METOCLOPRAMIDE HCL INJECTION 10 MG/2 ML VIAL ONE (17:36)
[2021-07-04 17:41] LABS: EOS % 0.5 % (0-4.5); HEMATOCRIT 38.2 % (32.4-45.2); HEMOGLOBIN 12.3 GM/dL (10.7-15.3); MCH 28.7 pg (25.7-33.7); MCHC 32.1 g/dl (32.0-36.0); MEAN CELL VOLUME 89.2 fl (80-96); MEAN PLT VOLUME 8.4 fl (7.5-11.1); MONO % 4.3 % (3.8-10.2); NEUT % 82.2 % (42.8-82.8); PLATELET COUNT 175 10^3/uL (134-434); RBC 4.28 M/mm3 (3.60-5.2); RDW 13.9 % (11.6-15.6); WHITE BLOOD COUNT 10.1 K/mm3 (4.0-10.0)
[2021-07-04 18:02] LABS: CALCIUM 9.9 mg/dL (8.5-10.1)
[2021-07-04 18:04] LABS: ALBUMIN 3.6 g/dl (3.4-5.0); BLOOD UREA NITROGEN 25.8 mg/dL (7-18)
[2021-07-04 18:06] LABS: CREATININE 1.2 mg/dL (0.55-1.3)
[2021-07-04 18:07] LABS: TOT PROT 7.3 g/dl (6.4-8.2)
[2021-07-04] MEDS ORDERED: LACTATED RINGERS SOLUTION 1,000 ML IV STA (18:08)
[2021-07-04 18:09] LABS: BILIRUBIN,TOTAL 0.4 mg/dL (0.2-1)
[2021-07-04] MEDS ORDERED: HEPARIN NA (PORCINE) 5,000 UNITS/ML 1ML VIAL IVPUSH ONE (21:43)
[2021-07-04] MEDS ORDERED: HEPARIN NA (PORCINE) 5,000 UNITS/ML 1ML VIAL IVPUSH PRN ×2 (21:43)
[2021-07-04] MEDS ORDERED: HEPARIN INFUSION - 25,000 UNITS/500 ML INFUS.BAG IVPB ONE (22:11)
[2021-07-04] MEDS ORDERED: HEPARIN NA (PORCINE) 5,000 UNITS/ML 1ML VIAL ONE (22:11)
[2021-07-04 22:48] LABS: INR 1.12 (0.83-1.09); PROTHROMBIN TIME (PATIENT) 13.1 SEC (9.7-13.0)
[2021-07-04 22:51] LABS: ACTIVATED PTT 24.7 SECONDS (25.2-36.5)
[2021-07-04] MEDS: HEPARIN SOD,PORK IN 0.45% NACL 25,000 UNITS/500 ML INFUS.BAG IVPB SCH (23:04)
[2021-07-05] MEDS ORDERED: MECLIZINE HCL 25 MG TABLET (FP) PO PRN (06:22)
[2021-07-05] MEDS ORDERED: METOCLOPRAMIDE HCL INJECTION 10 MG/2 ML VIAL IVPUSH PRN (06:35)
[2021-07-05] MEDS: INSULIN SLIDING SCALE (NOVOLOG) 1 VIAL SQ SCH ×4 (07:31→21:26)
[2021-07-05 08:48] LABS: BASO % 0.5 % (0-2.0); EOS % 0.1 % (0-4.5); HEMATOCRIT 35.2 % (32.4-45.2); HEMOGLOBIN 11.3 GM/dL (10.7-15.3); LYMPH % 17.1 % (8-40); MCH 28.8 pg (25.7-33.7); MCHC 32.1 g/dl (32.0-36.0); MEAN CELL VOLUME 89.7 fl (80-96); MEAN PLT VOLUME 8.3 fl (7.5-11.1); MONO % 5.6 % (3.8-10.2); NEUT % 76.7 % (42.8-82.8); PLATELET COUNT 153 10^3/uL (134-434); RBC 3.93 M/mm3 (3.60-5.2); RDW 13.8 % (11.6-15.6); WHITE BLOOD COUNT 9.5 K/mm3 (4.0-10.0)
[2021-07-05] MEDS: DEXTROSE 5%-NORMAL SALINE 1,000 ML IV SCH (09:08)
[2021-07-05] MEDS ORDERED: BACLOFEN 10 MG TABLET (FP) ONE (09:23)
[2021-07-05] MEDS ORDERED: PANTOPRAZOLE 20 MG TABLET PO ONE (09:23)
[2021-07-05] MEDS ORDERED: GABAPENTIN 100 MG CAPSULE ONE (09:24)
[2021-07-05] MEDS ORDERED: CITALOPRAM HYDROBROMIDE 10 MG TABLET ONE (09:24)
[2021-07-05] MEDS: CITALOPRAM HYDROBROMIDE 10 MG TABLET PO SCH (09:30)
[2021-07-05] MEDS: BACLOFEN 10 MG TABLET (FP) PO SCH (09:30)
[2021-07-05] MEDS: GABAPENTIN 400 MG CAPSULE PO SCH ×2 (09:31→21:25)
[2021-07-05] MEDS: PANTOPRAZOLE 20 MG TABLET PO SCH (09:31)
[2021-07-05 10:27] LABS: BLOOD UREA NITROGEN 23.7 mg/dL (7-18); CALCIUM 9.8 mg/dL (8.5-10.1); CREATININE 1.1 mg/dL (0.55-1.3)
[2021-07-05] MEDS: ATORVASTATIN CA 40 MG TABLET (FP) PO SCH (21:26)
[2021-07-06] MEDS: DEXTROSE 5%-NORMAL SALINE 1,000 ML IV SCH ×3 (00:27→17:27)
[2021-07-06] MEDS: HEPARIN SOD,PORK IN 0.45% NACL 25,000 UNITS/500 ML INFUS.BAG IVPB SCH ×4 (00:28→22:50)
[2021-07-06] MEDS: ACETAMINOPHEN 325 MG TABLET (FP) PO PRN (01:37)
[2021-07-06] MEDS: INSULIN SLIDING SCALE (NOVOLOG) 1 VIAL SQ SCH ×4 (05:59→22:51)
[2021-07-06 09:48] LABS: HEMATOCRIT 39.6 % (32.4-45.2); HEMOGLOBIN 12.6 GM/dL (10.7-15.3); MCH 28.9 pg (25.7-33.7); MCHC 31.8 g/dl (32.0-36.0); MEAN CELL VOLUME 90.9 fl (80-96); MEAN PLT VOLUME 8.3 fl (7.5-11.1); PLATELET COUNT 160 10^3/uL (134-434); RBC 4.35 M/mm3 (3.60-5.2); RDW 14.3 % (11.6-15.6); WHITE BLOOD COUNT 8.6 K/mm3 (4.0-10.0)
[2021-07-06] MEDS: PANTOPRAZOLE 20 MG TABLET PO SCH (10:11)
[2021-07-06] MEDS: BACLOFEN 10 MG TABLET (FP) PO SCH (10:11)
[2021-07-06] MEDS: CITALOPRAM HYDROBROMIDE 10 MG TABLET PO SCH (10:11)
[2021-07-06] MEDS: GABAPENTIN 400 MG CAPSULE PO SCH ×2 (10:11→22:51)
[2021-07-06 21:24] LABS: ALBUMIN 3.4 g/dl (3.4-5.0); BILIRUBIN,TOTAL 0.5 mg/dL (0.2-1); BLOOD UREA NITROGEN 19.6 mg/dL (7-18); CALCIUM 9.5 mg/dL (8.5-10.1); CREATININE 1.4 mg/dL (0.55-1.3); TOT PROT 6.8 g/dl (6.4-8.2)
[2021-07-06] MEDS ORDERED: PT OWN MED DRAWER 7, Y5N ONE (22:24)
[2021-07-06] MEDS: ATORVASTATIN CA 40 MG TABLET (FP) PO SCH (22:51)
[2021-07-07] MEDS: INSULIN SLIDING SCALE (NOVOLOG) 1 VIAL SQ SCH ×4 (07:02→21:01)
[2021-07-07] MEDS: DEXTROSE 5%-NORMAL SALINE 1,000 ML IV SCH (07:03)
[2021-07-07] MEDS: HEPARIN SOD,PORK IN 0.45% NACL 25,000 UNITS/500 ML INFUS.BAG IVPB SCH ×2 (07:33→23:51)
[2021-07-07] MEDS: PANTOPRAZOLE 20 MG TABLET PO SCH (09:14)
[2021-07-07] MEDS: CITALOPRAM HYDROBROMIDE 10 MG TABLET PO SCH (09:14)
[2021-07-07] MEDS: GABAPENTIN 400 MG CAPSULE PO SCH ×2 (09:14→21:01)
[2021-07-07] MEDS: BACLOFEN 10 MG TABLET (FP) PO SCH (09:14)
[2021-07-07 11:31] LABS: HEMATOCRIT 36.9 % (32.4-45.2); HEMOGLOBIN 11.9 GM/dL (10.7-15.3); MCH 29.1 pg (25.7-33.7); MCHC 32.1 g/dl (32.0-36.0); MEAN CELL VOLUME 90.8 fl (80-96); MEAN PLT VOLUME 8.6 fl (7.5-11.1); PLATELET COUNT 126 10^3/uL (134-434); RBC 4.07 M/mm3 (3.60-5.2); RDW 13.9 % (11.6-15.6); WHITE BLOOD COUNT 8.4 K/mm3 (4.0-10.0)
[2021-07-07] MEDS ORDERED: SODIUM CHLORIDE 0.45% 1,000 ML IV SCH (13:45)
[2021-07-07 14:36] LABS: INR 1.14 (0.83-1.09); PROTHROMBIN TIME (PATIENT) 12.8 SEC (9.7-13.0)
[2021-07-07 14:39] LABS: ACTIVATED PTT 64.9 SECONDS (25.2-36.5)
[2021-07-07] MEDS: ACETAMINOPHEN 325 MG TABLET (FP) PO PRN (16:44)
[2021-07-07] MEDS: ATORVASTATIN CA 40 MG TABLET (FP) PO SCH (21:01)
[2021-07-07 21:17] LABS: EPI CELLS 4 /uL (0-25.1); HYALINE CASTS 1 /uL (0-3.1); PH,URINE 5.5 (5.0-8.0); URINE APPEARANCE CLOUDY; URINE BACTERIA >9,000 /uL (0-1359); URINE BILIRUBIN NEGATIVE (NEGATIVE); URINE COLOR YELLOW; URINE GLUCOSE (UA) NEGATIVE (NEGATIVE); URINE KETONE NEGATIVE (NEGATIVE); URINE LEUK ESTERASE 3+ (NEGATIVE); URINE NITRITE NEGATIVE (NEGATIVE); URINE PROTEIN NEGATIVE (NEGATIVE); URINE RBC 16 /uL (0-23.9); URINE UROBILINOGEN 0.2 mg/dL (0.2-1.0); URINE WBC 1246 /uL (0-25.8)
[2021-07-08] MEDS: ACETAMINOPHEN 325 MG TABLET (FP) PO PRN ×2 (05:24→20:41)
[2021-07-08] MEDS: INSULIN SLIDING SCALE (NOVOLOG) 1 VIAL SQ SCH ×4 (06:22→22:21)
[2021-07-08] MEDS: HEPARIN SOD,PORK IN 0.45% NACL 25,000 UNITS/500 ML INFUS.BAG IVPB SCH (06:54)
[2021-07-08] MEDS: CITALOPRAM HYDROBROMIDE 10 MG TABLET PO SCH (10:26)
[2021-07-08] MEDS: BACLOFEN 10 MG TABLET (FP) PO SCH (10:26)
[2021-07-08] MEDS: PANTOPRAZOLE 20 MG TABLET PO SCH (10:26)
[2021-07-08] MEDS: GABAPENTIN 400 MG CAPSULE PO SCH ×3 (10:26→21:02)
[2021-07-08 11:43] LABS: BASO % 0.5 % (0-2.0); EOS % 3.9 % (0-4.5); HEMATOCRIT 39.9 % (32.4-45.2); HEMOGLOBIN 12.8 GM/dL (10.7-15.3); LYMPH % 22.3 % (8-40); MCH 28.7 pg (25.7-33.7); MEAN CELL VOLUME 89.7 fl (80-96); MEAN PLT VOLUME 8.9 fl (7.5-11.1); NEUT % 65.3 % (42.8-82.8); PLATELET COUNT 139 10^3/uL (134-434); RBC 4.45 M/mm3 (3.60-5.2); RDW 13.7 % (11.6-15.6); WHITE BLOOD COUNT 7.6 K/mm3 (4.0-10.0)
[2021-07-08] MEDS: POLYETHYLENE GLYCOL (HEALTHYLAX) 3350 17 GM PACKET PO PRN (12:06)
[2021-07-08 12:17] LABS: BLOOD UREA NITROGEN 24.2 mg/dL (7-18)
[2021-07-08 12:18] LABS: ALBUMIN 3.2 g/dl (3.4-5.0)
[2021-07-08 12:19] LABS: BILIRUBIN,TOTAL 0.5 mg/dL (0.2-1); TOT PROT 6.8 g/dl (6.4-8.2)
[2021-07-08 12:20] LABS: CREATININE 1.8 mg/dL (0.55-1.3)
[2021-07-08] MEDS: ENOXAPARIN NA (PORCINE) 40 MG/0.4 ML DISP.SYRIN SQ SCH ×2 (13:30→22:21)
[2021-07-08] MEDS: ATORVASTATIN CA 40 MG TABLET (FP) PO SCH ×2 (20:40→21:02)
[2021-07-09] MEDS: INSULIN SLIDING SCALE (NOVOLOG) 1 VIAL SQ SCH ×4 (06:06→21:18)
[2021-07-09] MEDS: ENOXAPARIN NA (PORCINE) 40 MG/0.4 ML DISP.SYRIN SQ SCH ×2 (10:24→22:20)
[2021-07-09] MEDS: GABAPENTIN 400 MG CAPSULE PO SCH ×2 (10:29→21:16)
[2021-07-09] MEDS: BACLOFEN 10 MG TABLET (FP) PO SCH (10:29)
[2021-07-09] MEDS: PANTOPRAZOLE 20 MG TABLET PO SCH (10:29)
[2021-07-09] MEDS: CITALOPRAM HYDROBROMIDE 10 MG TABLET PO SCH (10:29)
[2021-07-09] MEDS: amLODIPine BESYLATE 5 MG TABLET (FP) PO SCH (10:55)
[2021-07-09 17:03] LABS: BF WBC & OTHER NUCLEATED CELLS 459 /mm3
[2021-07-09 18:06] LABS: BODY FLUID BASOPHIL 1 %; BODY FLUID MACROPHAGES 20 %; BODY FLUID MESOTHELIAL 3 %; BODY FLUID MONOCYTE 5 %; BODYL FLD EOSINOPHIL 4 %
[2021-07-09] MEDS ORDERED: PT OWN MED DRAWER 7, Y5N ONE (18:14)
[2021-07-09] MEDS: ACETAMINOPHEN 325 MG TABLET (FP) PO PRN (21:16)
[2021-07-09] MEDS: ATORVASTATIN CA 40 MG TABLET (FP) PO SCH (21:16)
[2021-07-09] MEDS ORDERED: valACYclovir HCL 500 MG TABLET (FP) PO SCH (22:00)
[2021-07-10] MEDS: INSULIN SLIDING SCALE (NOVOLOG) 1 VIAL SQ SCH ×4 (06:24→22:06)
[2021-07-10 09:49] LABS: HEMATOCRIT 36.6 % (32.4-45.2); HEMOGLOBIN 12.4 GM/dL (10.7-15.3); MCH 29.8 pg (25.7-33.7); MCHC 33.7 g/dl (32.0-36.0); MEAN CELL VOLUME 88.3 fl (80-96); MEAN PLT VOLUME 8.3 fl (7.5-11.1); PLATELET COUNT 152 10^3/uL (134-434); RBC 4.15 M/mm3 (3.60-5.2); RDW 14.4 % (11.6-15.6); WHITE BLOOD COUNT 9.3 K/mm3 (4.0-10.0)
[2021-07-10] MEDS: ENOXAPARIN NA (PORCINE) 40 MG/0.4 ML DISP.SYRIN SQ SCH ×2 (11:02→22:06)
[2021-07-10] MEDS: ACETAMINOPHEN 325 MG TABLET (FP) PO PRN ×2 (11:02→17:36)
[2021-07-10] MEDS: CITALOPRAM HYDROBROMIDE 10 MG TABLET PO SCH (11:02)
[2021-07-10] MEDS: BACLOFEN 10 MG TABLET (FP) PO SCH (11:02)
[2021-07-10] MEDS: POLYETHYLENE GLYCOL (HEALTHYLAX) 3350 17 GM PACKET PO PRN (11:02)
[2021-07-10] MEDS: amLODIPine BESYLATE 5 MG TABLET (FP) PO SCH (11:02)
[2021-07-10] MEDS: GABAPENTIN 400 MG CAPSULE PO SCH ×2 (11:02→22:06)
[2021-07-10] MEDS: PANTOPRAZOLE 20 MG TABLET PO SCH (11:02)
[2021-07-10] MEDS: NYSTATIN POWDER 100,000 UNITS/GM - 15 GM TOPICAL POWDER TP SCH (17:33)
[2021-07-10 18:31] VITALS: BMI 33.3
[2021-07-10 21:20] LABS: EPI CELLS 3 /uL (0-25.1); HYALINE CASTS 15 /uL (0-3.1); PH,URINE 5.5 (5.0-8.0); URINE APPEARANCE CLEAR; URINE BACTERIA >9,000 /uL (0-1359); URINE BILIRUBIN NEGATIVE (NEGATIVE); URINE COLOR YELLOW; URINE GLUCOSE (UA) NEGATIVE (NEGATIVE); URINE KETONE NEGATIVE (NEGATIVE); URINE LEUK ESTERASE 2+ (NEGATIVE); URINE NITRITE NEGATIVE (NEGATIVE); URINE PROTEIN 1+ (NEGATIVE); URINE RBC 28 /uL (0-23.9); URINE WBC 343 /uL (0-25.8)
[2021-07-10] MEDS: ATORVASTATIN CA 80 MG TABLET (FP) PO SCH (22:06)
[2021-07-11] MEDS: INSULIN SLIDING SCALE (NOVOLOG) 1 VIAL SQ SCH ×4 (06:43→22:39)
[2021-07-11 10:01] LABS: ALBUMIN 3.7 g/dl (3.4-5.0); BLOOD UREA NITROGEN 28.7 mg/dL (7-18)
[2021-07-11 10:05] LABS: CREATININE 1.8 mg/dL (0.55-1.3)
[2021-07-11 10:06] LABS: BILIRUBIN,TOTAL 0.8 mg/dL (0.2-1)
[2021-07-11 10:07] LABS: TOT PROT 7.5 g/dl (6.4-8.2)
[2021-07-11] MEDS ORDERED: PT OWN MED DRAWER 7, Y5N ONE (10:52)
[2021-07-11] MEDS ORDERED: INSULIN (NOVOLOG) ASPART 100 UNITS/ML 10ML VIAL ONE (10:52)
[2021-07-11] MEDS: ENOXAPARIN NA (PORCINE) 40 MG/0.4 ML DISP.SYRIN SQ SCH ×2 (10:58→22:39)
[2021-07-11] MEDS: GABAPENTIN 400 MG CAPSULE PO SCH ×2 (10:59→22:39)
[2021-07-11] MEDS: BACLOFEN 10 MG TABLET (FP) PO SCH (10:59)
[2021-07-11] MEDS: CITALOPRAM HYDROBROMIDE 10 MG TABLET PO SCH (10:59)
[2021-07-11] MEDS: PANTOPRAZOLE 20 MG TABLET PO SCH (10:59)
[2021-07-11] MEDS: ACETAMINOPHEN 325 MG TABLET (FP) PO PRN ×2 (10:59→22:39)
[2021-07-11] MEDS: amLODIPine BESYLATE 5 MG TABLET (FP) PO SCH (10:59)
[2021-07-11] MEDS: NYSTATIN POWDER 100,000 UNITS/GM - 15 GM TOPICAL POWDER TP SCH (11:00)
[2021-07-11 11:07] LABS: BASO % 0.4 % (0-2.0); EOS % 3.1 % (0-4.5); HEMATOCRIT 42.2 % (32.4-45.2); HEMOGLOBIN 13.7 GM/dL (10.7-15.3); LYMPH % 15.1 % (8-40); MCH 29.2 pg (25.7-33.7); MCHC 32.4 g/dl (32.0-36.0); MEAN CELL VOLUME 90.1 fl (80-96); MEAN PLT VOLUME 9.3 fl (7.5-11.1); MONO % 6.3 % (3.8-10.2); NEUT % 75.1 % (42.8-82.8); RBC 4.69 M/mm3 (3.60-5.2); RDW 14.3 % (11.6-15.6); WHITE BLOOD COUNT 9.3 K/mm3 (4.0-10.0)
[2021-07-11 12:38] LABS: PLATELET ESTIMATE DECREASED
[2021-07-11 12:46] LABS: PLATELET COUNT 107 10^3/uL (134-434)
[2021-07-11] MEDS: CLOPIDOGREL BISULFATE 75 MG TABLET (FP) PO SCH (14:31)
[2021-07-11 16:12] LABS: BODY FLUID ALBUMIN 2.5 g/dL (Not Estab.)
[2021-07-11] MEDS: ATORVASTATIN CA 80 MG TABLET (FP) PO SCH (22:39)
[2021-07-12] MEDS: ACETAMINOPHEN 325 MG TABLET (FP) PO PRN (06:09)
[2021-07-12] MEDS: INSULIN SLIDING SCALE (NOVOLOG) 1 VIAL SQ SCH ×4 (06:09→22:33)
[2021-07-12] MEDS: BACLOFEN 10 MG TABLET (FP) PO SCH (10:56)
[2021-07-12] MEDS: CITALOPRAM HYDROBROMIDE 10 MG TABLET PO SCH (10:56)
[2021-07-12] MEDS: PANTOPRAZOLE 20 MG TABLET PO SCH (10:56)
[2021-07-12] MEDS: ENOXAPARIN NA (PORCINE) 40 MG/0.4 ML DISP.SYRIN SQ SCH ×2 (10:56→22:29)
[2021-07-12] MEDS: amLODIPine BESYLATE 5 MG TABLET (FP) PO SCH (10:56)
[2021-07-12] MEDS: GABAPENTIN 400 MG CAPSULE PO SCH ×2 (10:57→22:28)
[2021-07-12] MEDS: CLOPIDOGREL BISULFATE 75 MG TABLET (FP) PO SCH (10:57)
[2021-07-12] MEDS: NYSTATIN POWDER 100,000 UNITS/GM - 15 GM TOPICAL POWDER TP SCH (10:57)
[2021-07-12] MEDS: ATORVASTATIN CA 80 MG TABLET (FP) PO SCH (22:28)
[2021-07-12] MEDS: HYDROCORTISONE 2.5% TOPICAL CREAM 30 GM TUBE TP SCH (22:29)
[2021-07-13] MEDS: INSULIN SLIDING SCALE (NOVOLOG) 1 VIAL SQ SCH ×4 (06:23→21:53)
[2021-07-13] MEDS: NYSTATIN POWDER 100,000 UNITS/GM - 15 GM TOPICAL POWDER TP SCH (10:14)
[2021-07-13] MEDS: HYDROCORTISONE 2.5% TOPICAL CREAM 30 GM TUBE TP SCH ×2 (10:14→21:41)
[2021-07-13] MEDS: amLODIPine BESYLATE 5 MG TABLET (FP) PO SCH (10:14)
[2021-07-13] MEDS: CLOPIDOGREL BISULFATE 75 MG TABLET (FP) PO SCH (10:14)
[2021-07-13] MEDS: CITALOPRAM HYDROBROMIDE 10 MG TABLET PO SCH (10:14)
[2021-07-13] MEDS: BACLOFEN 10 MG TABLET (FP) PO SCH (10:14)
[2021-07-13] MEDS: GABAPENTIN 400 MG CAPSULE PO SCH ×2 (10:14→21:42)
[2021-07-13] MEDS: PANTOPRAZOLE 20 MG TABLET PO SCH (10:14)
[2021-07-13] MEDS ORDERED: INSULIN (NOVOLOG) ASPART 100 UNITS/ML 10ML VIAL ONE (12:08)
[2021-07-13] MEDS: ENOXAPARIN NA (PORCINE) 40 MG/0.4 ML DISP.SYRIN SQ SCH ×2 (12:09→23:03)
[2021-07-13] MEDS: ATORVASTATIN CA 80 MG TABLET (FP) PO SCH (21:41)
[2021-07-14] MEDS ORDERED: PT OWN MED DRAWER 7, Y5N ONE (06:11)
[2021-07-14] MEDS: INSULIN SLIDING SCALE (NOVOLOG) 1 VIAL SQ SCH ×4 (06:35→21:37)
[2021-07-14] MEDS: HYDROCORTISONE 2.5% TOPICAL CREAM 30 GM TUBE TP SCH ×2 (09:31→21:27)
[2021-07-14] MEDS: CITALOPRAM HYDROBROMIDE 10 MG TABLET PO SCH (09:31)
[2021-07-14] MEDS: amLODIPine BESYLATE 5 MG TABLET (FP) PO SCH (09:31)
[2021-07-14] MEDS: PANTOPRAZOLE 20 MG TABLET PO SCH (09:31)
[2021-07-14] MEDS: GABAPENTIN 400 MG CAPSULE PO SCH ×2 (09:31→21:26)
[2021-07-14] MEDS: BACLOFEN 10 MG TABLET (FP) PO SCH (09:31)
[2021-07-14] MEDS: CLOPIDOGREL BISULFATE 75 MG TABLET (FP) PO SCH (09:31)
[2021-07-14] MEDS: NYSTATIN POWDER 100,000 UNITS/GM - 15 GM TOPICAL POWDER TP SCH (09:32)
[2021-07-14] MEDS ORDERED: FUROSEMIDE 40 MG TABLET (FP) PO SCH (10:00)
[2021-07-14] MEDS: CEPHALEXIN MONOHYDRATE 500 MG CAPSULE (UD) PO SCH ×2 (11:21→21:26)
[2021-07-14] MEDS: FUROSEMIDE 40 MG/4 ML INJECTABLE VIAL IVPUSH SCH (11:21)
[2021-07-14] MEDS: ENOXAPARIN NA (PORCINE) 40 MG/0.4 ML DISP.SYRIN SQ SCH ×2 (11:21→22:20)
[2021-07-14 12:01] LABS: BASO % 0.5 % (0-2.0); EOS % 4.4 % (0-4.5); HEMATOCRIT 37.1 % (32.4-45.2); LYMPH % 14.2 % (8-40); MCH 28.9 pg (25.7-33.7); MCHC 32.3 g/dl (32.0-36.0); MEAN CELL VOLUME 89.6 fl (80-96); MEAN PLT VOLUME 8.6 fl (7.5-11.1); NEUT % 72.9 % (42.8-82.8); PLATELET COUNT 117 10^3/uL (134-434); RBC 4.14 M/mm3 (3.60-5.2); RDW 13.5 % (11.6-15.6); WHITE BLOOD COUNT 7.5 K/mm3 (4.0-10.0)
[2021-07-14 12:28] LABS: ALBUMIN 3.4 g/dl (3.4-5.0); BLOOD UREA NITROGEN 22.2 mg/dL (7-18); CALCIUM 9.7 mg/dL (8.5-10.1)
[2021-07-14 12:31] LABS: CREATININE 1.5 mg/dL (0.55-1.3)
[2021-07-14 12:33] LABS: BILIRUBIN,TOTAL 0.8 mg/dL (0.2-1)
[2021-07-14 13:49] LABS: PLATELET ESTIMATE DECREASED
[2021-07-14] MEDS ORDERED: INSULIN (NOVOLOG) ASPART 100 UNITS/ML 10ML VIAL ONE (16:36)
[2021-07-14] MEDS: ATORVASTATIN CA 80 MG TABLET (FP) PO SCH (21:26)
[2021-07-14] MEDS: ACETAMINOPHEN 325 MG TABLET (FP) PO PRN (21:33)
[2021-07-15] MEDS: INSULIN SLIDING SCALE (NOVOLOG) 1 VIAL SQ SCH ×3 (07:08→16:44)
[2021-07-15] MEDS ORDERED: APIXABAN 5 MG TABLET PO SCH (10:00)
[2021-07-15] MEDS ORDERED: INSULIN (LEVEMIR) 100 UNITS/ML UNITS SQ SCH (10:45)
[2021-07-15] MEDS: CEPHALEXIN MONOHYDRATE 500 MG CAPSULE (UD) PO SCH (10:57)
[2021-07-15] MEDS: CLOPIDOGREL BISULFATE 75 MG TABLET (FP) PO SCH (10:57)
[2021-07-15] MEDS: amLODIPine BESYLATE 5 MG TABLET (FP) PO SCH (10:57)
[2021-07-15] MEDS: PANTOPRAZOLE 20 MG TABLET PO SCH (10:57)
[2021-07-15] MEDS: BACLOFEN 10 MG TABLET (FP) PO SCH (10:57)
[2021-07-15] MEDS: CITALOPRAM HYDROBROMIDE 10 MG TABLET PO SCH (10:57)
[2021-07-15] MEDS: GABAPENTIN 400 MG CAPSULE PO SCH (10:57)
[2021-07-15] MEDS: HYDROCORTISONE 2.5% TOPICAL CREAM 30 GM TUBE TP SCH (10:58)
[2021-07-15] MEDS: FUROSEMIDE 40 MG/4 ML INJECTABLE VIAL IVPUSH SCH (10:58)
[2021-07-15] MEDS: NYSTATIN POWDER 100,000 UNITS/GM - 15 GM TOPICAL POWDER TP SCH (10:58)
[2021-07-15 14:39] VITALS: BP 150/70; PULSE 63; TEMP 99
== END 2021-07-15 20:17 | disposition home or self-care (01) | DRG 815 ==
LOC: JER 15:16 → JERBED 21:46 → J6S 07-05 10:51
PROVIDERS: ADMIT Internal Medicine; ATTEND Family Medicine
PROC: 0W993ZZ Drainage of Right Pleural Cavity, Percutaneous Approach (ICD-10-PCS; principal; 2021-07-09)
DX: D73.5 Infarction of spleen (principal); I69.354 Hemiplegia and hemiparesis following cerebral infarction affecting left non-dominant side; J90 Pleural effusion, not elsewhere classified; J98.11 Atelectasis; N17.9 Acute kidney failure, unspecified; I48.92 Unspecified atrial flutter; R42 Dizziness and giddiness; I10 Essential (primary) hypertension; E78.5 Hyperlipidemia, unspecified; L89.626 Pressure-induced deep tissue damage of left heel; T50.8X5A Adverse effect of diagnostic agents, initial encounter; Y92.89 Other specified places as the place of occurrence of the external cause; N28.9 Disorder of kidney and ureter, unspecified; I48.91 Unspecified atrial fibrillation; E11.40 Type 2 diabetes mellitus with diabetic neuropathy, unspecified; E66.9 Obesity, unspecified; Z68.33 Body mass index [BMI] 33.0-33.9, adult
CPT/HCPCS: 36415; 70450-TC; 71045-TC-FY; 74177-TC; 76705-TC; 76775-TC; 76942; 80048; 80053; 81003; 82042; 82150; 82272; 82945; 82962; 83615; 83690; 83986; 84157; 84478; 84484; 85025; 85027; 85610; 85730; 87040; 87070; 87075; 87086; 87102; 87116; 87186; 87205; 87206; 87210; 88108; 88305-TC; 93005; 93010; 93880-TC; 93925-TC; 97116-GP; 97162-GP; 99285-25; C9803-CS; J0475; J1644; Q9967; U0003; U0005

== ENCOUNTER 2022-02-04 14:16 | Observation (INO) | payer OTHER ==
[2022-02-04 14:40] VITALS: BMI 39.1
[2022-02-04 18:07] LABS: BASO % 1.1 % (0-2.0); EOS % 4.2 % (0-4.5); HEMATOCRIT 37.5 % (32.4-45.2); HEMOGLOBIN 12.3 GM/dL (10.7-15.3); LYMPH % 25.6 % (8-40); MCH 28.8 pg (25.7-33.7); MCHC 32.9 g/dl (32.0-36.0); MEAN CELL VOLUME 87.4 fl (80-96); MEAN PLT VOLUME 7.7 fl (7.5-11.1); MONO % 8.6 % (3.8-10.2); NEUT % 60.5 % (42.8-82.8); PLATELET COUNT 194 10^3/uL (134-434); RBC 4.29 M/mm3 (3.60-5.2); RDW 14.1 % (11.6-15.6)
[2022-02-04 18:35] LABS: CHLORIDE 108 mmol/L (98-107); SODIUM 143 mmol/L (136-145)
[2022-02-04 18:37] LABS: ALBUMIN 3.6 g/dl (3.4-5.0); CALCIUM 9.9 mg/dL (8.5-10.1)
[2022-02-04 18:38] LABS: ANION GAP 8 MMOL/L (8-16); BLOOD UREA NITROGEN 26.2 mg/dL (7-18); CO2 27 mmol/L (21-32); GLUCOSE,RANDOM 93 mg/dL (74-106)
[2022-02-04 18:41] LABS: CREATININE 1.3 mg/dL (0.55-1.3); SGOT/AST 22 U/L (15-37); SGPT/ALT 28 U/L (13-61)
[2022-02-04 18:42] LABS: BILIRUBIN,TOTAL 0.5 mg/dL (0.2-1); TOT PROT 7.6 g/dl (6.4-8.2)
[2022-02-04 18:43] LABS: ALK PHOS 153 U/L (45-117)
[2022-02-04] MEDS ORDERED: CLOPIDOGREL BISULFATE 300 MG TABLET PO ONE (20:49)
[2022-02-04] MEDS ORDERED: METOPROLOL TARTRATE 50 MG TABLET (FP) PO ONE (20:51)
[2022-02-04] MEDS ORDERED: CLOPIDOGREL BISULFATE 300 MG TABLET ONE (21:33)
[2022-02-04] MEDS ORDERED: ACETAMINOPHEN 325 MG TABLET (FP) PO PRN (22:55)
[2022-02-05] MEDS ORDERED: ATORVASTATIN CA 80 MG TABLET (FP) ONE (00:21)
[2022-02-05] MEDS ORDERED: APIXABAN 5 MG TABLET ONE ×3 (00:21→23:00)
[2022-02-05] MEDS: APIXABAN 5 MG TABLET PO SCH ×3 (00:37→23:04)
[2022-02-05] MEDS: ATORVASTATIN CA 80 MG TABLET (FP) PO SCH ×2 (00:37→23:04)
[2022-02-05] MEDS ORDERED: amLODIPine BESYLATE 5 MG TABLET (FP) ONE (08:02)
[2022-02-05 08:15] LABS: BASO % 0.5 % (0-2.0); EOS % 2.2 % (0-4.5); HEMATOCRIT 36.3 % (32.4-45.2); HEMOGLOBIN 11.8 GM/dL (10.7-15.3); LYMPH % 14.1 % (8-40); MCH 28.6 pg (25.7-33.7); MCHC 32.5 g/dl (32.0-36.0); MEAN CELL VOLUME 88.1 fl (80-96); MEAN PLT VOLUME 7.9 fl (7.5-11.1); MONO % 7.7 % (3.8-10.2); NEUT % 75.5 % (42.8-82.8); PLATELET COUNT 218 10^3/uL (134-434); RBC 4.12 M/mm3 (3.60-5.2); RDW 14.2 % (11.6-15.6); WHITE BLOOD COUNT 9.2 K/mm3 (4.0-10.0)
[2022-02-05 08:32] LABS: CHLORIDE 108 mmol/L (98-107); SODIUM 143 mmol/L (136-145)
[2022-02-05 09:04] LABS: BILIRUBIN,TOTAL 0.8 mg/dL (0.2-1)
[2022-02-05 09:05] LABS: HDL CHOLESTEROL 35 mg/dL (40-60); LDL CHOLESTEROL (ONLY SJRH) 57 mg/dL (5-100); TOT PROT 6.9 g/dl (6.4-8.2)
[2022-02-05 09:06] LABS: ALK PHOS 131 U/L (45-117)
[2022-02-05 09:08] LABS: ALBUMIN 3.2 g/dl (3.4-5.0); ANION GAP 9 MMOL/L (8-16); CALCIUM 10.1 mg/dL (8.5-10.1); CO2 26 mmol/L (21-32); GLUCOSE,RANDOM 86 mg/dL (74-106); MAGNESIUM 2.1 mg/dL (1.8-2.4)
[2022-02-05 09:09] LABS: BLOOD UREA NITROGEN 23.5 mg/dL (7-18)
[2022-02-05 09:10] LABS: CHOLESTEROL 100 mg/dL (50-200)
[2022-02-05 09:11] LABS: CREATININE 1.1 mg/dL (0.55-1.3); SGOT/AST 20 U/L (15-37); SGPT/ALT 21 U/L (13-61)
[2022-02-05 09:12] LABS: TRIGLYCERIDES 117 mg/dL (0-150)
[2022-02-05] MEDS: amLODIPine BESYLATE 5 MG TABLET (FP) PO SCH (09:34)
[2022-02-05] MEDS ORDERED: ATORVASTATIN CA 40 MG TABLET (FP) ONE (23:00)
[2022-02-05] MEDS ORDERED: ACETAMINOPHEN 325 MG TABLET (FP) ONE (23:05)
[2022-02-05] MEDS ORDERED: predniSONE 20 MG TABLET (UD) ONE (23:08)
[2022-02-05] MEDS ORDERED: FAMOTIDINE 20 MG TABLET ONE (23:09)
[2022-02-06] MEDS: APIXABAN 5 MG TABLET PO SCH ×2 (09:00→22:23)
[2022-02-06] MEDS: amLODIPine BESYLATE 5 MG TABLET (FP) PO SCH (09:00)
[2022-02-06] MEDS: METOPROLOL TARTRATE 50 MG TABLET (FP) PO SCH ×2 (10:48→22:23)
[2022-02-06] MEDS: INSULIN (NOVOLOG) ASPART 100 UNITS/ML 10ML VIAL SQ SCH ×3 (12:29→22:25)
[2022-02-06 14:04] LABS: CHLORIDE 105 mmol/L (98-107); SODIUM 142 mmol/L (136-145)
[2022-02-06 14:07] LABS: CALCIUM 10.1 mg/dL (8.5-10.1)
[2022-02-06 14:08] LABS: ALBUMIN 3.3 g/dl (3.4-5.0); ANION GAP 7 MMOL/L (8-16); BLOOD UREA NITROGEN 18.5 mg/dL (7-18); CO2 30 mmol/L (21-32); GLUCOSE,RANDOM 167 mg/dL (74-106)
[2022-02-06 14:11] LABS: CREATININE 1.1 mg/dL (0.55-1.3); SGOT/AST 19 U/L (15-37); SGPT/ALT 22 U/L (13-61)
[2022-02-06 14:12] LABS: TOT PROT 7.2 g/dl (6.4-8.2)
[2022-02-06 14:14] LABS: ALK PHOS 150 U/L (45-117)
[2022-02-06] MEDS: ATORVASTATIN CA 80 MG TABLET (FP) PO SCH (22:23)
[2022-02-07] MEDS: INSULIN (NOVOLOG) ASPART 100 UNITS/ML 10ML VIAL SQ SCH ×4 (06:06→22:06)
[2022-02-07] MEDS: METOPROLOL TARTRATE 50 MG TABLET (FP) PO SCH ×2 (10:23→22:00)
[2022-02-07] MEDS: APIXABAN 5 MG TABLET PO SCH ×2 (10:23→22:00)
[2022-02-07] MEDS: amLODIPine BESYLATE 5 MG TABLET (FP) PO SCH (10:24)
[2022-02-07] MEDS: ATORVASTATIN CA 80 MG TABLET (FP) PO SCH (22:00)
[2022-02-08] MEDS: INSULIN (NOVOLOG) ASPART 100 UNITS/ML 10ML VIAL SQ SCH (06:04)
[2022-02-08] MEDS: METOPROLOL TARTRATE 50 MG TABLET (FP) PO SCH (10:07)
[2022-02-08] MEDS: APIXABAN 5 MG TABLET PO SCH (10:07)
[2022-02-08] MEDS: amLODIPine BESYLATE 5 MG TABLET (FP) PO SCH (10:07)
[2022-02-08 10:26] VITALS: BP 135/68; PULSE 69; RESP 15; TEMP 98.2
== END 2022-02-08 12:10 | disposition home or self-care (01) ==
LOC: JER 14:16 → JERBED 18:28 → J4W 02-06 01:04
PROVIDERS: ADMIT Hospitalist; ATTEND Family Medicine
DX: I65.29 Occlusion and stenosis of unspecified carotid artery (principal); I69.354 Hemiplegia and hemiparesis following cerebral infarction affecting left non-dominant side; Z95.0 Presence of cardiac pacemaker; K21.9 Gastro-esophageal reflux disease without esophagitis; E11.9 Type 2 diabetes mellitus without complications; K85.90 Acute pancreatitis without necrosis or infection, unspecified; J45.909 Unspecified asthma, uncomplicated; R00.0 Tachycardia, unspecified; Z87.891 Personal history of nicotine dependence; Z91.018 Allergy to other foods; Z29.8 Encounter for other specified prophylactic measures; Z88.8 Allergy status to other drugs, medicaments and biological substances
CPT/HCPCS: 36415; 71045-TC-FY; 80053; 80061; 82962; 83735; 84443; 84484; 85025; 93005; 93010; 97162-GP; 99285-25; C9803-CS; G0378; U0003; U0005